=== PATIENT | male | born 1985 | race Caucasian/White ===

== ENCOUNTER 2016-07-29 17:26 | Inpatient (IN) | payer MEDICAID ==
[~2016-07-29] VITALS: Ht 175.3 cm; Wt 61.1 kg
[2016-07-29 17:59] LABS: BASOPHILS 0.8 % (0-2); EOSINOPHILS 5.3 % (0-7); HEMATOCRIT 35.3 % (42.0-54.0); HEMOGLOBIN 11.7 g/dL (13.5-17.5); IMMATURE GRANULOCYTES 0.2 % (0-5); LYMPHOCYTES 27.5 % (15-50); MCH 29.8 pg (26.0-34.0); MCHC 33.1 g/dL (31.0-37.0); MCV 90.1 fL (80.0-100.0); MEAN PLATELET VOLUME 9.8 fL (7.4-10.4); MONOCYTES 8.5 % (2-11); NEUTROPHILS 57.7 % (40-80); RBC 3.92 10x6/uL (4.20-6.10); RDW 13.1 % (11.5-14.5); WBC 8.8 10x3/uL (4.8-10.8)
[2016-07-29 18:21] LABS: PLATELET COUNT 306 10x3/uL (130-400)
[2016-07-29 18:23] LABS: ALBUMIN 2.3 g/dL (3.4-5.0); ANION GAP 10.4 mmol/L (8-16); BILIRUBIN - TOTAL 0.13 mg/dL (0.2-1.3); CARBON DIOXIDE 28.4 mmol/L (21.0-32.0); CREATININE - SERUM 2.6 mg/dL (0.6-1.3); POTASSIUM - SERUM 3.8 mmol/L (3.5-5.1); PROTEIN - SERUM 5.6 g/dL (6.4-8.2)
--- NOTE | 2016-07-29 21:19 | NUR ---
RECEIVED FROM ER, IV-R.FELA ROBBINS, HAS MAGDALENE, VITALS- BP-132/94, P-69, R-18, T-97.3, O2-98-RA, PT IS ALERT @ ORINTATED, DENIES ANY NEEDS, CALL LIGHT IN REACH, BED IS LOW, SRX2, WILL CONTINUE PLAN OF CARE
[2016-07-29] MEDS ORDERED: SEROQUEL XR400 M1 PO (21:27)
[2016-07-29] MEDS ORDERED: NORVASC10 MG PO (21:28)
[2016-07-29] MEDS ORDERED: PROTONIX40 MG PO (21:29)
[2016-07-29] MEDS ORDERED: CATAPRES0.2 MG PO (21:34)
[2016-07-29] MEDS ORDERED: HUMALOG 30100 UNITS/ SC ×2 (21:36→21:38)
[2016-07-29] MEDS ORDERED: TOPROL XL100 MG PO (23:06)
[2016-07-30 00:25] VITALS: BP 138/98
[2016-07-30 04:33] VITALS: BP 133/86
--- NOTE | 2016-07-30 04:33 | NUR ---
[id number]. HARDIN ORDER HUMALOG LOW SCALE, WILL GIVE 12 UNITS
--- NOTE | 2016-07-30 07:10 | NUR ---
RECEIVED REPORT. ASSUMED CARE OF PATIENT. ALERT/ORIENTED. LYING IN BED. CALL LIGHT WITHIN REACH. PATIENT STATES HE FEELS FINE OTHER THAN HAVING THE DEL CASTILLO CATHETER. PATIENT REQUESTING DEL CASTILLO CATHETER BE REMOVED NOW THAT HE IS ALERT. VEBALIZED HE UNDERSTOOD WHY THEY PUT IT IN LAST NIGHT. NO DISTRESS.
[2016-07-30 08:00] VITALS: BP 126/84
[2016-07-30 08:00] LABS: ANION GAP 12.8 mmol/L (8-16); CALCIUM 8.1 mg/dL (8.5-10.1); CARBON DIOXIDE 23.2 mmol/L (21.0-32.0); CREATININE - SERUM 2.6 mg/dL (0.6-1.3)
[2016-07-30 12:00] VITALS: BP 139/86
--- NOTE | 2016-07-30 12:01 | NUR ---
FOLEYCATH D/C'D AT THIS TIME. 1200 EMPTIED PRIOR TO REMOVAL. TOLERATED REMOVAL WELL. NO DISTRESS.
[2016-07-30 13:11] VITALS: Ht 175.3 cm; Wt 61.1 kg
[2016-07-30 16:00] VITALS: BP 118/50
--- NOTE | 2016-07-30 16:03 | HP ---
PATIENT: OLIVER JENNINGS MEDICAL RECORD: [id number] ACCOUNT: [id number] LOCATION:[address] : 84 ADMISSION DATE: 07/29/16 HISTORY AND PHYSICAL EXAMINATION HISTORY OF PRESENT ILLNESS: Mr. Jennings is a 31-year-old white male that presents to the Emergency Room unresponsive yesterday, brought in by family. He is a type 1 diabetic since the age of 7 with multiple medical problems including retinopathy, neuropathy, nephropathy. His primary care is ____. His air battle manager is Dr. Pizarro, sugar was low. He was resuscitated with fluids and in the ER and he is now hyperglycemic, found to have a lingular pneumonia. He has had a little bit of cough and chest discomfort. He is admitted at this time for treatment of his pneumonia and stabilization of his sugars. He states his last hemoglobin A1c was probably 11 or 12, but is not for certain. PAST MEDICAL HISTORY: Significant for type 1 diabetes since the age 7, complicated by retinopathy, neuropathy, nephropathy. He is followed by Dr. Pizarro, he has a history of hepatitis C that was treated by Dr. Ann Tena. He was hospitalized 2 weeks ago at ____, he was going there to see GI person, but he does know if he was hypoglycemic or hyperglycemic. He has a history of multiple admissions for DKA at other institution, states in 1 year he was admitted over 12 times with DKA. He has a history of IV drug use and has been clean for 2 years. He has a history of chronic kidney disease and was told his kidney function was 26%. He also has a type 1 bipolar disease and is followed at [facility]. PAST SURGICAL HISTORY: Significant for gallbladder, appendectomy, cataracts and multiple eye surgeries. ALLERGIES OR INTOLERANCES: None known. HOME MEDICATIONS: Include amlodipine 10 mg a day, metoprolol XL 100 mg a day, Seroquel XR 400 mg daily, clonazepam 0.52 b.i.d., Protonix 40 mg a day and his insulin. FAMILY HISTORY: Noncontributory. SOCIAL HISTORY: The patient smokes a pack per day. He smokes marijuana. He does not smoke tobacco. History of IV drug use. He is disabled. REVIEW OF SYSTEMS: Denies any fever, does complain of a little bit of cough and chest congestion, some abdominal pain. He is complaining right now of some pain from his Marsh catheter. PHYSICAL EXAMINATION: HEENT: Head is normocephalic, sclerae nonicteric. Oral cavity, he is edentulous. NECK: Soft and supple without rigidity. HEART: Regular without murmur. LUNGS: Clear. ABDOMEN: Soft. SKIN: Reveals multiple tattoos and findings compatible with prurigo nodularis. NEUROLOGIC: Without any gross focal deficits at this time. He is alert and oriented. HISTORY AND PHYSICAL [id number] OLIVER JENNINGS IMPRESSION: 1. Lingular pneumonia. 2. Hypoglycemia, now resolved with hyperglycemia. 3. Type 1 diabetes with multiple complications including nephropathy, retinopathy and neuropathy, history of hepatitis C, history of IV drug use, bipolar disorder, chronic renal disease. PLAN: Admit, IV antibiotics, pulmonary toilet, discontinue Marsh, monitor blood sugars, IV fluids, we will try to get an idea where his baseline renal function is. See orders for rest of plan. TRANSINT:[id number] Voice Confirmation ID: [id number] DOCUMENT ID: [id number] OLIVER RIGGINS DO at 1603 CC: [id number] DICTATION DATE: 07/30/16 1123 PLANNING RN: 07/30/16 1328 ADM IN [place] [id number] [place] [address]
--- NOTE | 2016-07-30 16:48 | NUR ---
FSBS 332. 8 UNITS HUMALOG ADMINISTERED PER SLIDING SCALE. NO DISTRESS. CONSUMING PM MEAL AT THIS TIME.
--- NOTE | 2016-07-30 19:00 | NUR ---
INITIAL ROUNDS MADE. PT SITTING UP IN BED WATCHING TV. NO NEEDS OR C/O VOICED AT THIS TIME. CALL LIGHT IN REACH. WILL CONT TO MONITOR.
[2016-07-30 20:00] VITALS: BP 133/89
[2016-07-31] VITALS (7 sets, daily range): BP systolic 123–161; BP diastolic 83–110
--- NOTE | 2016-07-31 05:55 | NUR ---
PHLEBO IN ROOM FOR AM LAB DRAW.
[2016-07-31 06:11] LABS: BASOPHILS 0.7 % (0-2); EOSINOPHILS 5.9 % (0-7); HEMATOCRIT 36.7 % (42.0-54.0); HEMOGLOBIN 12.1 g/dL (13.5-17.5); IMMATURE GRANULOCYTES 0.4 % (0-5); MCH 29.5 pg (26.0-34.0); MCV 89.5 fL (80.0-100.0); MEAN PLATELET VOLUME 10.1 fL (7.4-10.4); MONOCYTES 8.1 % (2-11); NEUTROPHILS 51.9 % (40-80); PLATELET COUNT 295 10x3/uL (130-400); RDW 13.1 % (11.5-14.5); WBC 8.3 10x3/uL (4.8-10.8)
[2016-07-31 06:38] LABS: ALBUMIN 2.3 g/dL (3.4-5.0); ANION GAP 14.1 mmol/L (8-16); BILIRUBIN - TOTAL 0.3 mg/dL (0.2-1.3); CARBON DIOXIDE 23.2 mmol/L (21.0-32.0); CREATININE - SERUM 2.4 mg/dL (0.6-1.3); POTASSIUM - SERUM 4.3 mmol/L (3.5-5.1); PROTEIN - SERUM 5.7 g/dL (6.4-8.2)
--- NOTE | 2016-07-31 07:00 | NUR ---
RECEIVED REPORT. ASSUMED CARE OF PATIENT. CALL LIGHT WITHIN REACH. RESTING WITH EYES CLOSED. EASILY AROUSED. RESP EVEN AND UNLABORED. DENIES NEEDS AT THIS TIME. NO DISTRESS. IV FLUIDS INFUSING ORDERED.
--- NOTE | 2016-07-31 12:08 | NUR ---
FSBS 375. 10 UNITS HUMALOG ADMINISTERED AT THIS TIME. NO DISTRESS. CONSUMED 100% OF NOON MEAL.
--- NOTE | 2016-07-31 14:57 | NUR ---
MEDICATED FOR PAIN AT THIS TIME. NO DISTRESS. TOLERATES PO MEDS WELL.
--- NOTE | 2016-07-31 16:42 | NUR ---
FSBS 295. 6 UNITS HUMALOG ADMINISTERED PER SLIDING SCALE. MEDICATED FOR PAIN AT THIS TIME. NO DISTRESS.
--- NOTE | 2016-07-31 17:30 | NUR ---
RESTING IN BED WITH ATTENTION TOWARD TELEVISION. PATIENT CONSUMED 100% OF PM MEAL. CALL LIGHT WITHIN REACH. NO DISTRESS. DENIES NEEDS AT THIS TIME.
--- NOTE | 2016-07-31 19:00 | NUR ---
INITIAL ROUNDS MADE. PT SITTING UP ON SIDE OF BED WATCHING TV. DENIES NEEDS OR C/O AT THIS TIME. CALL LIGHT IN REACH. WILL CONT TO MONITOR.
--- NOTE | 2016-08-01 00:27 | NUR ---
HEAVY EQUIPMENT SERVICE MANAGER AT BEDSIDE FOR VS. NEEDS ADDRESSED AT THIS TIME. CALL LIGHT IN REACH. WILL CONT TO MONITOR.
[2016-08-01 03:44] VITALS: BP 141/95
[2016-08-01 05:41] LABS: BASOPHILS 0.9 % (0-2); EOSINOPHILS 6.5 % (0-7); HEMATOCRIT 37.4 % (42.0-54.0); HEMOGLOBIN 12.3 g/dL (13.5-17.5); IMMATURE GRANULOCYTES 0.4 % (0-5); MCH 29.2 pg (26.0-34.0); MCHC 32.9 g/dL (31.0-37.0); MCV 88.8 fL (80.0-100.0); MEAN PLATELET VOLUME 9.8 fL (7.4-10.4); MONOCYTES 7.7 % (2-11); NEUTROPHILS 50.5 % (40-80); PLATELET COUNT 306 10x3/uL (130-400); RBC 4.21 10x6/uL (4.20-6.10); RDW 12.9 % (11.5-14.5); WBC 7.4 10x3/uL (4.8-10.8)
[2016-08-01 05:58] LABS: ALBUMIN 2.3 g/dL (3.4-5.0); ANION GAP 13.3 mmol/L (8-16); BILIRUBIN - TOTAL 0.19 mg/dL (0.2-1.3); CALCIUM 8.4 mg/dL (8.5-10.1); POTASSIUM - SERUM 4.3 mmol/L (3.5-5.1); PROTEIN - SERUM 5.8 g/dL (6.4-8.2)
[2016-08-01 08:01] VITALS: BP 182/111
[2016-08-01 12:09] VITALS: BP 150/99
[2016-08-01] MEDS ORDERED: LEVAQUIN500 MG PO (12:26)
--- NOTE | 2016-08-01 14:19 | NUR ---
Patient Name: OLIVER JENNINGS Admission Status: ER Accout number: [id number] Admission Date: 07-29-2016 : 1985 Admission Diagnosis: Attending: JUSTIN Current LOS: 3 Anticipated DC Date: 08-01-2016 Planned Disposition: Home Primary Insurance: MEDICAID [place] Discharge Planning Comments: CM met with patient to assess discharge planning/needs. Patient states that his plan is to be discharged home where he lives with his dad( Octavio Jennings) [phone] and his stepmother (Heidi) who will drive him home. Pt states that he has x 4 stairs with a rail. Pt also states that his home is a safe environment to return home to. He has an insulin pump where Dr Olson manages it. Pt did say that he was admitted to [facility] in [place] 2 weeks ago. Pt denies any CM needs at this time. offered and pt does not feel like he needs it at this time. PCP: Dr Bolaños (DIRECTOR COMPENSATION) Christy Morales @ [facility]: Budget Motor Driver: Traci White * Is the patient Alert and Oriented? Yes 0 * How many steps to enter\exit or inside your home? 4 0 * PCP ANP: Andrew Bolaños 0 * Pharmacy [facility] 0 * Preadmission Environment Home with Family 0 * ADLs Independent 0 * Equipment Other 0 * Other Equipment Insulin Pump 0 * List name and contact numbers for known caregivers / representatives who currently or will assist patient after discharge: Octavio Jennings (father) [phone] 0 * Community resources currently utilized None 0 * Additional services required to return to the preadmission environment? No 0 * Can the patient safely return to the preadmission environment? Yes 0 * Has this patient been hospitalized within the prior 30 days at any hospital? Yes 0 Grand Total: 0
--- NOTE | 2016-08-01 14:56 | NUR ---
D/C PTS R.WRIST PIV WITH CATHETER TIP FULLY INTACT, ALONG WITH L.FA PIV CATHETER TIP FULLY INTACT WELL FOR PT BEING DISCHARGED. PT IS WANTING TO TAKE A SHOWER FIRST THEN HE WILL BE BEING DISCHARGED AND SIGN HIS PAPERS.
--- NOTE | 2016-08-01 15:35 | NUR ---
DISCHARGE TEACHING PROVIDED AND PAPERS SIGNED. PT VERBALIZED UNDERSTANDING AND CALLED FOR HIS RIDE. DENIES ANY FURTHER QUESTIONS OR NEEDS. WILL CTM.
== END 2016-08-01 17:10 | disposition home or self-care (01) | DRG 195 ==
LOC: D.ER 17:26 → D.M2 19:42
PROVIDERS: Emergency Medicine; ADMIT Family Medicine
DX: J18.9 Pneumonia, unspecified organism (principal); B18.2 Chronic viral hepatitis C; E10.22 Type 1 diabetes mellitus with diabetic chronic kidney disease; N18.9 Chronic kidney disease, unspecified; Z79.4 Long term (current) use of insulin; E10.40 Type 1 diabetes mellitus with diabetic neuropathy, unspecified; E10.319 Type 1 diabetes mellitus with unspecified diabetic retinopathy without macular edema; E10.65 Type 1 diabetes mellitus with hyperglycemia; E10.21 Type 1 diabetes mellitus with diabetic nephropathy

== ENCOUNTER 2016-08-15 02:27 | Inpatient (IN) | payer MEDICAID ==
[~2016-08-15] VITALS: Ht 175.3 cm; Wt 61.6 kg
[2016-08-15] VITALS (18 sets, daily range): BP systolic 103–161; BP diastolic 68–91; Ht 175.3 cm; Wt 61.6 kg
[~2016-08-15 02:27] MED LIST: CATAPRES0.2 MG PO; HUMALOG 30100 UNITS/ SC; LEVAQUIN500 MG PO; NORVASC10 MG PO; PROTONIX40 MG PO; SEROQUEL XR400 M1 PO; TOPROL XL100 MG PO
[2016-08-15 03:04] LABS: HEMATOCRIT 45.6 % (42.0-54.0); HEMOGLOBIN 11.9 g/dL (13.5-17.5); MCH 29.8 pg (26.0-34.0); MCHC 26.1 g/dL (31.0-37.0); MEAN PLATELET VOLUME 11.5 fL (7.4-10.4); PLATELET COUNT 311 10x3/uL (130-400); RDW 13.1 % (11.5-14.5); WBC 27.4 10x3/uL (4.8-10.8)
[2016-08-15 03:09] LABS: KETONE - SERUM LARGE mg/dL (NEGATIVE)
[2016-08-15 03:17] LABS: ALBUMIN 3.2 g/dL (3.4-5.0); ALKALINE PHOSPHATASE 158 U/L (46-116); ALT (SGPT) 86 U/L (10-68); BILIRUBIN - TOTAL 0.44 mg/dL (0.2-1.3); CALCIUM 8.1 mg/dL (8.5-10.1); CREATININE - SERUM 5.8 mg/dL (0.6-1.3); PROTEIN - SERUM 6.9 g/dL (6.4-8.2); SODIUM 122 mmol/L (136-145); UREA NITROGEN 83 mg/dL (7-18); eGFR NON AFRICAN AMERICAN 12 mL/min (90-120)
[2016-08-15 03:31] LABS: UDS - AMPHET NEGATIVE QUAL (NEGATIVE); UDS - BARB NEGATIVE QUAL (NEGATIVE); UDS - BENZO NEGATIVE QUAL (NEGATIVE); UDS - COCAINE NEGATIVE QUAL (NEGATIVE); UDS - METH NEGATIVE QUAL (NEGATIVE); UDS - OPIATE POSITIVE QUAL (NEGATIVE); UDS - PCP NEGATIVE QUAL (NEGATIVE); UDS - THC POSITIVE QUAL (NEGATIVE)
[2016-08-15 03:34] LABS: LYMPHOCYTES 9 % (15-50); MONOCYTES 4 % (2-11); NEUTROPHILS 83 % (40-80); PLATELET ESTIMATE NORMAL; PLATELET MORPHOLOGY PLT CLUMPS PRESENT
[2016-08-15 03:36] LABS: CALC OSMOLALITY 372 mosm/kg (275-300)
[2016-08-15 03:37] LABS: CARBON DIOXIDE 4.3 mmol/L (21.0-32.0); CHLORIDE - SERUM 82 mmol/L (98-107)
[2016-08-15 03:38] LABS: GLUCOSE 1939 mg/dL (74-106)
[2016-08-15 03:49] LABS: APPEARANCE HAZY (CLEAR); BILIRUBIN NEGATIVE (NEGATIVE); COLOR YELLOW (YELLOW); GLUCOSE 1000 mg/dL (NEGATIVE); KETONE SMALL mg/dL (NEGATIVE); LEUKOCYTE ESTERASE NEGATIVE (NEGATIVE); NITRITE NEGATIVE (NEGATIVE); PROTEIN 2+ mg/dL (NEGATIVE); UROBILINOGEN NORMAL (NORMAL)
[2016-08-15 04:03] LABS: AMORPHOUS SEDIMENT >1+ /lpf (NONE SEEN); BACTERIA FEW /hpf (NONE SEEN); EPITHELIAL CELLS 0-5 /hpf (0-5); GRANULAR CAST RARE /lpf (NONE SEEN); RED CELLS - URINE OCC /hpf (0-5); WHITE CELLS - URINE OCC /hpf (0-5)
--- NOTE | 2016-08-15 07:15 | NUR ---
RECIEVED PT VIA STRETCHER FROM ER. CONFUSED UNLABLE TO FORM PROPER SENTENCES. ABLE TO VERIFY NAME, BUT NOT . PLACED ON BAIRHUGGER. CRITOCORE COLLECTION CANNISTER PALCED ON CRITICORE CONTAINER. VSS AT THIS TIME. TEMP UP TO 97.6 ORALLY. ADMISSION COMPLETE PER FLOWSHEET. NS AND INSULING GTT INFUSING TO LEFT AC.
[2016-08-15 08:02] LABS: CREATININE - SERUM 5.8 mg/dL (0.6-1.3); MAGNESIUM - SERUM 2.6 mg/dL (1.8-2.4)
[2016-08-15 08:06] LABS: ANION GAP 40.6 mmol/L (8-16)
[2016-08-15 08:08] LABS: CALCIUM 6.6 mg/dL (8.5-10.1); CARBON DIOXIDE 5.5 mmol/L (21.0-32.0); POTASSIUM - SERUM 7.1 mmol/L (3.5-5.1)
--- NOTE | 2016-08-15 09:00 | NUR ---
DR. PARKINSON AT BEDSIDE. ORDERS RECIEVED.
--- NOTE | 2016-08-15 09:42 | NUR ---
ORDER PLACED FOR LAB TO COME DRAW GLUCOSE EVERY HOUR UNTIL UNDER 400.
--- NOTE | 2016-08-15 10:00 | NUR ---
FATHER AT BEDSIDE. UPDATE PROVIDED. SECURITY CODE SET UP.
--- NOTE | 2016-08-15 12:17 | NUR ---
SPOKE WITH [facility] TO VERIFY FORMULA USED TO CALCULATE INSULIN GTT RATE. LAST FSBS 1125 DOSE CALCULATED AND VERIFIED WITH HIM 42.6. WITH MULTIPLIER INCREASED BY 0.01 TO EQUAL 0.04 IN FORMULA.
[2016-08-15 12:47] LABS: CREATININE - SERUM 5.7 mg/dL (0.6-1.3); MAGNESIUM - SERUM 2.4 mg/dL (1.8-2.4)
[2016-08-15 12:51] LABS: ANION GAP 31.9 mmol/L (8-16); POTASSIUM - SERUM 5.3 mmol/L (3.5-5.1)
[2016-08-15 12:53] LABS: CALCIUM 6.6 mg/dL (8.5-10.1); CARBON DIOXIDE 8.4 mmol/L (21.0-32.0)
[2016-08-15 13:40] LABS: CREATINE KINASE 497 UL (21-232)
[2016-08-15 13:41] LABS: CKMB 15.3 U/L (0.0-3.6)
--- NOTE | 2016-08-15 14:30 | NUR ---
DR. HAMMER AT BEDSIDE. UPDATE PROVIDED. ORDERS RECIEVED.
--- NOTE | 2016-08-15 14:44 | HP ---
PATIENT: OLIVER TALAVERA MEDICAL RECORD: [id number] ACCOUNT: [id number] LOCATION:[facility] D2310 : 84 ADMISSION DATE: 08/15/16 HISTORY AND PHYSICAL EXAMINATION DATE OF ADMISSION: 08/15/2016 CHIEF COMPLAINT: Weakness, DKA. HISTORY OF PRESENT ILLNESS: This is a 31-year-old white male with diabetes since age 7, on insulin pump. He is not able to give any kind of history. The story from the ER is that he is a brittle diabetic. His father got home from work on 08/14/2016 and saw the insulin pump was "not in place." In the ER, he was minimally conscious and he was unable to give any history. In the ER, his sodium was 122 and his glucose was 1939. His potassium was 8.0, lactic acid 3.9, BUN and creatinine were 83 and 5.8 respectively. Serum ketones were large. Urine drug screen positive for opiates and for THC. He is admitted to the ICU for further treatment. PAST MEDICAL AND SURGICAL HISTORY: Basically gained from previous hospitalizations and review of those records, he has diabetes since age 7, currently followed by Dr. Pizarro. When I asked who his primary care doctor is, he says ____. Patient has retinopathy, neuropathy, nephropathy. I am not sure what his baseline creatinine level is. He reportedly has a history of hepatitis C, treated by Ann Tena, history of IV drug use and reportedly clean for a couple of years. He has a history of bipolar illness, follows in [facility]. PAST SURGICAL HISTORY: Cholecystectomy, appendectomy, cataract repair, multiple eye surgeries. ALLERGIES: None known. HOME MEDICATIONS: Amlodipine 10 mg once a day, metoprolol XL 100 twice a day, clonidine 0.2 mg twice a day, Seroquel 400 mg twice a day, Protonix 40 mg once a day and insulin pump per Dr. Pizarro. HABITS: Reportedly, he does smoke cigarettes and smokes marijuana, again no IV drug use for a couple of years. SOCIAL HISTORY: He lives with his father. FAMILY HISTORY: Really unobtainable. PHYSICAL EXAMINATION: VITAL SIGNS: Temperature 96.7, pulse 77, respirations 20, blood pressure in the ER 92/44. GENERAL: He is awake. He will answer questions, but not appropriately. He is complaining of pain in his private parts, he has a Marsh catheter in. He is confused. SKIN: He has multiple tattoos. HEENT: Grossly within normal limits. NECK: No JVD or bruit. HEART: Regular rate and rhythm. LUNGS: Fairly clear. HISTORY AND PHYSICAL [id number] OLIVER TALAVERA ABDOMEN: Mild diffuse tenderness. No guarding, no rebound, no mass. EXTREMITIES: No edema. NEUROLOGIC: He is confused. LABORATORY WORK: Serum ketones positive. CBC with a white count of 27,400, hemoglobin 11.9, hematocrit 45.6, MCV is 114. First basic metabolic panel: Sodium 122, potassium 8.0, chloride 82, CO2 of 4.3, BUN 83, creatinine 5.8, glucose was 1939, calcium 8.1. Second basic metabolic panel: Sodium 129, potassium 7.1, chloride 90, CO2 is 5.5, BUN and creatinine 79 at 5.8, glucose is down to 1335. Lactic acid elevated at 3.9. Liver enzymes are okay except ALT 86. Urine drug screen positive for opiates, positive for marijuana, for THC. Urinalysis, yellow, hazy, 2+ protein, few bacteria. ABG: pH 6.9, pCO2 of 14, pO2 of 136. Chest x-ray is not done. ASSESSMENT: 1. Diabetic ketoacidosis. 2. Uncontrolled diabetes. 3. Acute kidney injury on chronic kidney disease. 4. Hyperkalemia. PLAN: Kayexalate. We will start insulin drip. We will consult nephrology for his renal function. Get chest x-ray, urine culture and blood culture. Other tests or procedures as warranted. TRANSINT:[id number] Voice Confirmation ID: [id number] DOCUMENT ID: [id number] GURMEET PARKINSON MD at 1444 CC: [id number] DICTATION DATE: 08/15/16849 ELECTRIC GAS APPLIANCES DEMONSTRATOR: 08/15/16 1010 ADM IN [id number] [place] [address]
[2016-08-15 17:00] LABS: CREATININE - SERUM 5.5 mg/dL (0.6-1.3); MAGNESIUM - SERUM 2.2 mg/dL (1.8-2.4)
--- NOTE | 2016-08-15 17:00 | NUR ---
SPOKE WITH DR. HAMMER IN RESULTS TO CRITICAL K+. ORDERS RECIEVED.
[2016-08-15 17:03] LABS: ANION GAP 19.8 mmol/L (8-16); CARBON DIOXIDE 21.9 mmol/L (21.0-32.0)
[2016-08-15 17:05] LABS: CALCIUM 6.7 mg/dL (8.5-10.1); POTASSIUM - SERUM 2.7 mmol/L (3.5-5.1)
--- NOTE | 2016-08-15 17:15 | NUR ---
patient with recent discharge 08/01/16. Reportedly had an admission to [facility] in [place] 2 wks prior to the [facility] 07/29 admit 08/01 discharge.Pt is somewhat confused today. Admitted this early AM to ICU. He reportedly lives w/ mhis father and stepmother. He has an insulin pump per his notes and sees DR Aguilar for management. Per previous assessment is followed by [facility] DR Bolaños and FLOW MACHINE OPERATOR Christy Morales. CM will need to verify above with the patient when he is more oriented. BG 828 at 1520.
--- NOTE | 2016-08-15 19:30 | NUR ---
REPORT REC'D AND CARE ASSUMED, REC'D PT RESTING IN BED EYES CLOSED, AWAKENS TO VERBAL STIMULI, ORIENTED TO PERSON AND PLACE ONLY, IMMEDIATELY FALLS BACK TO SLEEP WITHOUT CONTINUOUS STIMULI, SERUM GLUCOSE 432, LEFT A/C PIV WITH NS @ 50CC/HR AND INSULIN @ 41.5CC/HR, LEFT WRIST PIV WITH 1/2NS WITH 3AMPS SOD BICARB @ 150CC/HR, KCL RIDER INFUSING SLOWLY @ 60CC/HR, CRITICORE DEL CASTILLO PATENT DRAINING CLEAR YELLOW URINE, BILAT LOWER EXT'S WITH SCARS AND SCABS/SORES, PPP, SR UP X 2, VISIBLE TO NURSES STATION.
--- NOTE | 2016-08-15 20:20 | NUR ---
SERUM GLUCOSE 356, NO CHANGE IN INSULIN GTT AT THIS TIME.
--- NOTE | 2016-08-15 21:15 | NUR ---
EVENING MEDS GIVEN, PT AROUSABLE, BS TRENDING DOWN, BP STABLE, WILL CONT TO MONITOR FOR CHANGES.
--- NOTE | 2016-08-15 23:00 | NUR ---
PT INCONTINENT OF LOOSE BROWN STOOL, PARTIAL BATH AND LINEN CHANGE GIVEN, REPOSITIONED UP IN BED FOR COMFORT, TOLERATED WELL.
--- NOTE | 2016-08-15 23:30 | NUR ---
REASSESSMENT COMPLETED, FSBS 119, INSULIN GTT REDUCED, PT DENIES NEEDS, WILL CONT TO MONITOR FOR CHANGES.
[2016-08-16] VITALS (24 sets, daily range): BP systolic 105–191; BP diastolic 67–119
--- NOTE | 2016-08-16 00:05 | NUR ---
FSBS 89, INSULIN GTT PLACED ON HOLD, WILL MONITOR.
--- NOTE | 2016-08-16 01:05 | NUR ---
FSBS 43, 1 AMP D50 GIVEN AT THIS TIME, PT DIFFICULT TO AROUSE
--- NOTE | 2016-08-16 01:40 | NUR ---
FSBS 79, PT INCONTINENT OF SM LOOSE BROWN STOOL, PARTIAL BATH AND LINEN CHANGE GIVEN, PT REPOSITIONED UP IN BED FOR COMFORT.
--- NOTE | 2016-08-16 02:29 | NUR ---
FSBS 68 AT THIS TIME, BP ELEVATED, PT CONVERSANT, REPORTS TAKING BP MEDS AT HOME, WILL CONT TO MONITOR CLOSELY FOR CHANGES.
--- NOTE | 2016-08-16 03:05 | NUR ---
FSBS 58, PT COHERENT, REQUESTING ORANGE JUICE PROVIDED AT THIS TIME, WILL RECHECK GLUCOSE IN 30-45 MINUTES, BP REMAINS ELEVATED
--- NOTE | 2016-08-16 03:15 | NUR ---
DR. ENNIS PAGED REGARDING ELEVATED BP
--- NOTE | 2016-08-16 03:35 | NUR ---
DR. ENNIS REPAGED
--- NOTE | 2016-08-16 03:40 | NUR ---
NOTIFIED DR. ENNIS OF ELEVATED BP AND HOME MEDS BEING HELD FOR NPO STATUS, NEW ORDERS REC'D, EMERGENCY PREPAREDNESS COORDINATOR NOTIFIED OF NEED FOR OVERRIDE
[2016-08-16 03:48] LABS: BASOPHILS 0.1 % (0-2); EOSINOPHILS 0.1 % (0-7); HEMATOCRIT 36.7 % (42.0-54.0); IMMATURE GRANULOCYTES 0.6 % (0-5); LYMPHOCYTES 5.8 % (15-50); MCH 29.8 pg (26.0-34.0); MCHC 35.4 g/dL (31.0-37.0); MCV 84.2 fL (80.0-100.0); MEAN PLATELET VOLUME 10.1 fL (7.4-10.4); MONOCYTES 12.2 % (2-11); NEUTROPHILS 81.2 % (40-80); PLATELET COUNT 291 10x3/uL (130-400); RBC 4.36 10x6/uL (4.20-6.10); WBC 27.6 10x3/uL (4.8-10.8)
[2016-08-16 03:53] LABS: ALBUMIN 2.5 g/dL (3.4-5.0); BILIRUBIN - TOTAL 0.4 mg/dL (0.2-1.3); CREATININE - SERUM 4.5 mg/dL (0.6-1.3)
[2016-08-16 03:55] LABS: ANION GAP 11.9 mmol/L (8-16); CARBON DIOXIDE 31.1 mmol/L (21.0-32.0)
[2016-08-16 03:56] LABS: CALCIUM 6.8 mg/dL (8.5-10.1)
--- NOTE | 2016-08-16 04:15 | NUR ---
CLONIDINE 0.2MG PO GIVEN FOR ELEVATED BP, PT ATTEMPTED TO GET OOB, MOANING STATES " I NEED TO POOP", PT PLACED ON BED GUIDO AT THIS TIME, CALL LIGHT IN REACH.
--- NOTE | 2016-08-16 04:35 | NUR ---
PT REMOVED FROM BEDPAN, LARGE LOOSE BROWN STOOL NOTED, BATH AND LINEN CHANGE PROVIDED, PT REPOSITIONED UP IN BED FOR COMFORT, SR UP X 2, BED IN LOW POSITION, CALL LIGHT IN REACH.
--- NOTE | 2016-08-16 05:15 | NUR ---
PT MOANING AND ROLLING AROUND IN BED WHEN ASKED WHERE HE HURT STATES " I HAVE TO POOP AGAIN", BEDPAN PLACED UNDER PT.
--- NOTE | 2016-08-16 05:30 | NUR ---
PT HAD SM LIQUID BROWN STOOL, PARTIAL BATH AND LINEN CHANGE PROVIDED, FSBS 160 WILL MONITOR FOR CHANGES.
--- NOTE | 2016-08-16 06:00 | NUR ---
NO VISITORS IN AT THIS TIME.
--- NOTE | 2016-08-16 06:36 | NUR ---
DR. ENNIS PAGED REGARDING GLUCOSE 181
--- NOTE | 2016-08-16 06:40 | NUR ---
DR. ENNIS INFORMED OF GLUCOSE, NEW ORDERS REC'D FOR INTERMEDIATE HUMALOG S/S AND Q2 HOUR FSBS.
--- NOTE | 2016-08-16 07:15 | NUR ---
REPORT RECIVED FROM DEVELOPER PROGRAMMER NURSE. PT RESTING IN BED QUIETLY. AWAKEN TO VERBAL STIMULI. AAO TO PERSON, PLACE, AND SITUATION. REORIENTED TO TIME. VSS TO CM. TEMP 37.6 DEGREE'S CELCIUS PER CRITICORE F/C. PATENT WITH CLEAR, YELLOW URINE. SCABS AND SORES NOTED TO UPPER AND LOWER EXT'S. MORE SIGNIFICANT TO LOWER EXT'S. EDEMA +2 TO LE'S. PRODUCTIVE COUGH NOTED. SPUTUM NOTED TO BE YELLOW IN COLOR AND THICK. BED ALARM ON AND BED IN LOW POSITION. WILL CONT TO ASSESS FSBS Q2H.
--- NOTE | 2016-08-16 10:00 | NUR ---
FATHER AT BEDSIDE. UPDATE PROVIDED.
--- NOTE | 2016-08-16 12:00 | NUR ---
NO ACUTE CHANGE NOTED AT THIS TIME. PARTIAL LINEN CHANGE PROVIDED. CALL LIGHT IN REACH.
--- NOTE | 2016-08-16 14:03 | NUR ---
FSBS 146. WILL HOLD PER S/S.
[2016-08-16 15:50] LABS: CARBON DIOXIDE 33.9 mmol/L (21.0-32.0); CREATININE - SERUM 3.8 mg/dL (0.6-1.3); MAGNESIUM - SERUM 1.8 mg/dL (1.8-2.4); PHOSPHOROUS 3.3 mg/dL (2.5-4.9)
[2016-08-16 15:51] LABS: ANION GAP 7.9 mmol/L (8-16)
[2016-08-16 15:53] LABS: CALCIUM 6.6 mg/dL (8.5-10.1); POTASSIUM - SERUM 2.8 mmol/L (3.5-5.1)
--- NOTE | 2016-08-16 16:00 | NUR ---
OFFERED TO HELP PT BATHE HIMSELF AND CHANGE LINENS PT REFUSED STATED HE DIDN'T WANT TO AT THIS TIME. WILL ASK AGAIN LATER.
--- NOTE | 2016-08-16 18:00 | NUR ---
FATHER AT BEDSIDE. UPDATE PROVIDED.
--- NOTE | 2016-08-16 19:06 | NUR ---
PHYSICIAN O/C PAGED REGARDING INCREASE IN SBP OVER LAST HOUR. AWAITING CALL BACK.
--- NOTE | 2016-08-16 19:45 | NUR ---
ASSESSMENT COMPLETE. S1S2. NSR SHOWING ON MONITOR. RR EQUAL AND UNLABORED. AWAKE AND ALERT. GENERALIZED SCABS/SORES; B/L LOWER EXTREMITIES SCABS/SORES. PT INCONTINENT OF STOOL. CRITICORE DEL CASTILLO IN PLACE. PIV TO LEFT WRIST AND LEFT AC; BOTH PATENT.
--- NOTE | 2016-08-16 20:45 | NUR ---
EMPTIED CRITICORE MAGDALENE; POLYURIA. 2300 EMPTIED OUT
--- NOTE | 2016-08-16 21:30 | NUR ---
NO FAMILY DURING VISITATION.
--- NOTE | 2016-08-16 23:15 | NUR ---
REASSESSMENT COMPLETE. NO CHANGES FROM PREVIOUS ASSESSMENT. VSS. NO DISTRESS NOTED. PT SPITTING TOWARDS PEOPLES DIRECTION.
[2016-08-17] VITALS (12 sets, daily range): BP systolic 116–187; BP diastolic 74–110
--- NOTE | 2016-08-17 00:10 | NUR ---
BS 71. ORANGE JUICE GIVEN. WILL RECHECK.
--- NOTE | 2016-08-17 03:15 | NUR ---
REASSESSMENT COMPLETE. NO CHANGES FROM PREVIOUS ASSESSMENT. VSS. WILL CONTINUE TO MONITOR.
[2016-08-17 03:41] LABS: BASOPHILS 0.1 % (0-2); EOSINOPHILS 0.2 % (0-7); HEMATOCRIT 32.7 % (42.0-54.0); HEMOGLOBIN 11.1 g/dL (13.5-17.5); IMMATURE GRANULOCYTES 0.3 % (0-5); LYMPHOCYTES 12.4 % (15-50); MCH 29.2 pg (26.0-34.0); MCHC 33.9 g/dL (31.0-37.0); MCV 86.1 fL (80.0-100.0); MEAN PLATELET VOLUME 10.2 fL (7.4-10.4); MONOCYTES 7.4 % (2-11); NEUTROPHILS 79.6 % (40-80); RDW 13.5 % (11.5-14.5)
[2016-08-17 03:42] LABS: PLATELET COUNT 183 10x3/uL (130-400)
[2016-08-17 03:59] LABS: ALBUMIN 2.2 g/dL (3.4-5.0); ANION GAP 11.1 mmol/L (8-16); BILIRUBIN - TOTAL 0.41 mg/dL (0.2-1.3); CREATININE - SERUM 3.2 mg/dL (0.6-1.3); MAGNESIUM - SERUM 1.6 mg/dL (1.8-2.4); POTASSIUM - SERUM 3.1 mmol/L (3.5-5.1); PROTEIN - SERUM 5.5 g/dL (6.4-8.2)
[2016-08-17 04:06] LABS: CALCIUM 6.7 mg/dL (8.5-10.1)
--- NOTE | 2016-08-17 05:30 | NUR ---
PT PULLING ON DEL CASTILLO CATH. PT C/O PAIN AT DEL CASTILLO SITE. EXPLAINED THAT PULLING CAUSES PAIN AND PT SHOULD LEAVE IT ALONE. PT WAS PLAYING WITH PENIS MULTIPLE TIMES THROUGHOUT THE NIGHT.
--- NOTE | 2016-08-17 07:30 | NUR ---
REPORT RECD PT CARE ASSUMED. PT RESTING IN BED WITH EYES OPEN AT THIS TIME. S1S2 NOTED, SR PER CM. PT ON RA, LUNG SOUNDS DIMINISHED IN BASES. PT IS ALERT AND ORIENTED X 4. VSS. SEE SHIFT ASSESSMENT FOR FURTHER DETAIL. WILL MONITOR.
--- NOTE | 2016-08-17 09:31 | NUR ---
PT CONSUMES PART OF BREAKFAST, TOLERATES MED PASS WELL. BS STABLE AT THIS TIME. PT RESTING IN BED. VSS.
--- NOTE | 2016-08-17 10:11 | NUR ---
REPORT GIVEN TO SAMIRA DAI. PT STABLE FOR TRANSPORT.
--- NOTE | 2016-08-17 10:47 | NUR ---
RECEIVED PATIENT TO ROOM 2236 VIA BED FROM THE ICU. PATIENT IS AWAKE, ALERT, AND ORIENTED X4. NO COMPLAINTS OF PAIN AT PRESENT TIME. ORIENTED PATIENT TO HIS ROOM AND HIS CALL LIGHT. 1000 ML OF CLEAR YELLOW URINE EMPTIED FROM PATIENT'S DEL CASTILLO CATHETER. PATIENT DENIES ANY NEEDS AT PRESENT TIME. CALL LIGHT IN PATIENT'S REACH. WILL MONITOR PATIENT.
--- NOTE | 2016-08-17 11:46 | NUR ---
PATIENT RESTING IN THE BED. FSBS IS 200. 4 UNITS OF SLIDING SCALE INSULIN GIVEN TO PATIENT IN HIS RIGHT ARM. PATIENT TOLERATED WELL. PATIENT DENIES NEEDS AT PRESENT TIME. CALL LIGHT IN PATIENT'S REACH. WILL MONITOR.
--- NOTE | 2016-08-17 14:24 | NUR ---
IV RESITED TO L UPPER ARM. X2 ATTEMPTS. 20GUAGE IV CATHETER USED. IV TO L WRIST DC'D WITH CATHETER INTACT. DEL CASTILLO CATHETER DC'D BY MALAIKA HOGAN. BED LOW, CALL LIGHT IN REACH, DENIES NEEDS. CPOC.
--- NOTE | 2016-08-17 16:37 | NUR ---
PATIENT RESTING IN THE BED. FSBS IS 88. NO SLIDING SCALE INSULIN REQUIRED AT THIS TIME. PATIENT DENIES ANY NEEDS. CALL LIGHT IN PATIENT'S REACH. WILL MONITOR PATIENT.
--- NOTE | 2016-08-17 19:35 | NUR ---
RECIEVED SHIFT REPORT. PT IS LYING IN BED. ALERT AND ORIENTED AND ABLE TO VERBALIZE NEEDS. IV IS PATENT AND FLUIDS ARE RUNNING PER ORDER. PT IS AMBULATORY BUT WAS INSTRUCTED TO CALL FOR ANY ASSISTANCE NEEDED. PT DENIES ANY PAIN AT THIS TIME. NO NEEDS ARE VERBALIZED AT THIS TIME. WILL CONTINUE TO MONITOR. SIDE RAILS ARE UP X 2. BED IS IN LOWEST POSITION. CALL LIGHT IS WITHIN REACH.
--- NOTE | 2016-08-17 21:39 | NUR ---
SHIFT ASSESSMENT COMPLETED. NIGHT MEDS GIVEN WITH NO PROBLEMS. NO NEEDS ARE VOICED. WILL MONITOR. SIDE RAILS X 2. BED LOW. CALL LIGHT IN REACH.
[2016-08-18] VITALS: BP 154/87
[2016-08-18 04:00] VITALS: BP 188/104
[2016-08-18 05:36] LABS: BASOPHILS 0.1 % (0-2); EOSINOPHILS 0.8 % (0-7); HEMOGLOBIN 12.9 g/dL (13.5-17.5); IMMATURE GRANULOCYTES 0.3 % (0-5); LYMPHOCYTES 16.8 % (15-50); MCH 28.9 pg (26.0-34.0); MCHC 33.1 g/dL (31.0-37.0); MCV 87.4 fL (80.0-100.0); MEAN PLATELET VOLUME 10.3 fL (7.4-10.4); MONOCYTES 8.7 % (2-11); NEUTROPHILS 73.3 % (40-80); PLATELET COUNT 202 10x3/uL (130-400); RBC 4.46 10x6/uL (4.20-6.10); RDW 13.1 % (11.5-14.5); WBC 11.4 10x3/uL (4.8-10.8)
[2016-08-18 06:06] LABS: ALBUMIN 2.5 g/dL (3.4-5.0); BILIRUBIN - TOTAL 0.45 mg/dL (0.2-1.3); CARBON DIOXIDE 29.1 mmol/L (21.0-32.0); CREATININE - SERUM 2.5 mg/dL (0.6-1.3); PROTEIN - SERUM 6.3 g/dL (6.4-8.2)
[2016-08-18 06:35] LABS: ANION GAP 13.4 mmol/L (8-16); POTASSIUM - SERUM 2.5 mmol/L (3.5-5.1)
--- NOTE | 2016-08-18 07:30 | NUR ---
RECIEVED PT DURING WALKING ROUNDS. PT RESTIN IN BED WITH NO COMPLAINTS OF PAIN OR DISCOMFORT AT THIS TIME. ASSESSMENT DONE PER FLOWSHEET, BED IN LOW POSITION AND CALL LIGHT WITHIN REACH. WILL CONTINUE TO MONITOR.
[2016-08-18 08:29] VITALS: BP 170/98
[2016-08-18 12:47] VITALS: BP 140/89
--- NOTE | 2016-08-18 16:08 | NUR ---
SPOKE WITH NABIL ROMAN NURSE CNA GNA FOR DR ARTHUR FOR TRANSFER TO [facility]
[2016-08-18 17:06] VITALS: BP 143/90
--- NOTE | 2016-08-18 19:59 | NUR ---
PT GIVEN DISCHARGE INSTRUCTIONS. IV DC'D WITH CATH TIP INTACT. PT ESCORTED TO PRIVATE VEHICLE VIA WHEELCHAIR
== END 2016-08-18 20:00 | disposition home or self-care (01) | DRG 638 ==
LOC: D.ER 02:27 → D.ICU 06:24 → D.MS 06:24
PROVIDERS: Family Medicine; Internal Medicine; ADMIT Family Medicine
DX: E10.10 Type 1 diabetes mellitus with ketoacidosis without coma (principal); E87.1 Hypo-osmolality and hyponatremia; N17.9 Acute kidney failure, unspecified; J98.11 Atelectasis; Z79.4 Long term (current) use of insulin; Z96.41 Presence of insulin pump (external) (internal); E10.22 Type 1 diabetes mellitus with diabetic chronic kidney disease; N18.9 Chronic kidney disease, unspecified; E10.3599 Type 1 diabetes mellitus with proliferative diabetic retinopathy without macular edema, unspecified eye; E10.21 Type 1 diabetes mellitus with diabetic nephropathy; Z91.11 Patient's noncompliance with dietary regimen; E83.51 Hypocalcemia; E87.5 Hyperkalemia; F31.9 Bipolar disorder, unspecified; B19.20 Unspecified viral hepatitis C without hepatic coma; F12.90 Cannabis use, unspecified, uncomplicated; F11.90 Opioid use, unspecified, uncomplicated; Z72.0 Tobacco use

== ENCOUNTER 2016-11-15 09:36 | Inpatient (IN) | payer MEDICAID ==
[~2016-11-15] VITALS: Ht 172.7 cm; Wt 55.6 kg
[2016-11-15] VITALS (7 sets, daily range): BP systolic 137–174; BP diastolic 93–110; BMI 18.5
[2016-11-15 10:44] LABS: BASOPHILS 0.2 % (0-2); EOSINOPHILS 0.4 % (0-7); HEMATOCRIT 44.5 % (42.0-54.0); HEMOGLOBIN 14.9 g/dL (13.5-17.5); IMMATURE GRANULOCYTES 0.2 % (0-5); LYMPHOCYTES 7.8 % (15-50); MCH 30.5 pg (26.0-34.0); MCHC 33.5 g/dL (31.0-37.0); MCV 91.2 fL (80.0-100.0); MEAN PLATELET VOLUME 11.2 fL (7.4-10.4); NEUTROPHILS 85.4 % (40-80); RBC 4.88 10x6/uL (4.20-6.10); RDW 13.2 % (11.5-14.5); WBC 18.3 10x3/uL (4.8-10.8)
[2016-11-15 10:50] LABS: PLATELET COUNT 338 10x3/uL (130-400)
[2016-11-15 11:00] LABS: KETONE - SERUM SMALL mg/dL (NEGATIVE)
[2016-11-15 11:07] LABS: ALBUMIN 3.8 g/dL (3.4-5.0); ALKALINE PHOSPHATASE 152 U/L (46-116); ALT (SGPT) 74 U/L (10-68); AMYLASE - SERUM 88 U/L (25-115); CALCIUM 10.6 mg/dL (8.5-10.1); CHLORIDE - SERUM 93 mmol/L (98-107); CREATININE - SERUM 3.3 mg/dL (0.6-1.3); LIPASE 155 U/L (73-393); POTASSIUM - SERUM 4.5 mmol/L (3.5-5.1); PROTEIN - SERUM 7.9 g/dL (6.4-8.2); SODIUM 134 mmol/L (136-145); UREA NITROGEN 68 mg/dL (7-18); eGFR NON AFRICAN AMERICAN 23 mL/min (90-120)
[2016-11-15 11:23] LABS: CALC OSMOLALITY 343 mosm/kg (275-300); GLUCOSE 1100 mg/dL (74-106)
[2016-11-15 12:41] LABS: APPEARANCE CLEAR (CLEAR); BACTERIA FEW /hpf (NONE SEEN); BILIRUBIN NEGATIVE (NEGATIVE); COLOR STRAW (YELLOW); EPITHELIAL CELLS RARE /hpf (0-5); GLUCOSE 1000 mg/dL (NEGATIVE); KETONE LARGE mg/dL (NEGATIVE); LEUKOCYTE ESTERASE NEGATIVE (NEGATIVE); NITRITE NEGATIVE (NEGATIVE); PROTEIN 3+ mg/dL (NEGATIVE); RED CELLS - URINE 0-5 /hpf (0-5); UROBILINOGEN NORMAL (NORMAL)
[2016-11-15 18:42] LABS: KETONE - SERUM NEGATIVE (NEGATIVE)
[2016-11-15 18:46] LABS: MAGNESIUM - SERUM 2.5 mg/dL (1.8-2.4)
[2016-11-15 22:55] LABS: CALCIUM 9.5 mg/dL (8.5-10.1); CREATININE - SERUM 2.8 mg/dL (0.6-1.3); MAGNESIUM - SERUM 2.3 mg/dL (1.8-2.4); PHOSPHOROUS 4.3 mg/dL (2.5-4.9)
[2016-11-15 23:05] LABS: ANION GAP 15.1 mmol/L (8-16); CARBON DIOXIDE 26.7 mmol/L (21.0-32.0); POTASSIUM - SERUM 3.8 mmol/L (3.5-5.1)
[2016-11-16] VITALS (14 sets, daily range): BP systolic 118–175; BP diastolic 75–112; Ht 172.7 cm; Wt 55.6 kg
[2016-11-16 04:34] LABS: HEMATOCRIT 36.8 % (42.0-54.0); HEMOGLOBIN 12.7 g/dL (13.5-17.5); MCH 30.1 pg (26.0-34.0); MCHC 34.5 g/dL (31.0-37.0); MCV 87.2 fL (80.0-100.0); MEAN PLATELET VOLUME 10.4 fL (7.4-10.4); PLATELET COUNT 335 10x3/uL (130-400); RBC 4.22 10x6/uL (4.20-6.10); RDW 13.3 % (11.5-14.5); WBC 21.3 10x3/uL (4.8-10.8)
[2016-11-16 05:01] LABS: CALCIUM 8.5 mg/dL (8.5-10.1); CARBON DIOXIDE 25.9 mmol/L (21.0-32.0); CREATININE - SERUM 2.5 mg/dL (0.6-1.3)
[2016-11-16 05:22] LABS: BASOPHILS 1 % (0-2); EOSINOPHILS 1 % (0-7); LYMPHOCYTES 19 % (15-50); MONOCYTES 4 % (2-11); NEUTROPHILS 75 % (40-80); PLATELET ESTIMATE NORMAL
[2016-11-16 06:13] LABS: ANION GAP 13.4 mmol/L (8-16); POTASSIUM - SERUM 3.3 mmol/L (3.5-5.1)
[2016-11-16 11:56] LABS: CKMB 2.1 U/L (0.0-3.6); CREATINE KINASE 204 UL (21-232)
[2016-11-16 11:57] LABS: POTASSIUM - SERUM 3.9 mmol/L (3.5-5.1); TROPONIN-I < 0.017 ng/mL (0.000-0.060)
[2016-11-16 12:39] LABS: APPEARANCE CLEAR (CLEAR); BACTERIA FEW /hpf (NONE SEEN); BILIRUBIN NEGATIVE (NEGATIVE); COLOR YELLOW (YELLOW); EPITHELIAL CELLS OCC /hpf (0-5); GLUCOSE 100 mg/dL (NEGATIVE); KETONE MODERATE mg/dL (NEGATIVE); LEUKOCYTE ESTERASE NEGATIVE (NEGATIVE); NITRITE NEGATIVE (NEGATIVE); PROTEIN 3+ mg/dL (NEGATIVE); RED CELLS - URINE 0-5 /hpf (0-5); SPECIFIC GRAVITY 1.015 (1.005-1.020); UROBILINOGEN NORMAL (NORMAL)
[2016-11-17 03:00] VITALS: BP 115/78
[2016-11-17 03:27] LABS: BASOPHILS 0.4 % (0-2); EOSINOPHILS 2.6 % (0-7); HEMATOCRIT 41.1 % (42.0-54.0); HEMOGLOBIN 13.9 g/dL (13.5-17.5); IMMATURE GRANULOCYTES 0.2 % (0-5); MCH 30.3 pg (26.0-34.0); MCHC 33.8 g/dL (31.0-37.0); MEAN PLATELET VOLUME 10.1 fL (7.4-10.4); MONOCYTES 7.9 % (2-11); NEUTROPHILS 61.9 % (40-80); PLATELET COUNT 278 10x3/uL (130-400); RBC 4.58 10x6/uL (4.20-6.10)
[2016-11-17 03:30] LABS: MCV 89.7 fL (80.0-100.0); WBC 9.2 10x3/uL (4.8-10.8)
[2016-11-17 03:42] LABS: ANION GAP 14.2 mmol/L (8-16); CALCIUM 8.5 mg/dL (8.5-10.1); CARBON DIOXIDE 27.9 mmol/L (21.0-32.0); CREATININE - SERUM 2.3 mg/dL (0.6-1.3)
[2016-11-17 03:44] LABS: POTASSIUM - SERUM 3.1 mmol/L (3.5-5.1)
[2016-11-17 09:39] VITALS: BP 130/89
[2016-11-17 12:57] VITALS: BP 114/86
[2016-11-17 16:30] VITALS: BP 140/96
[2016-11-17 20:00] VITALS: BP 135/91
[2016-11-18] VITALS: BP 138/92
[2016-11-18 04:00] VITALS: BP 156/94
[2016-11-18 04:57] LABS: BASOPHILS 0.6 % (0-2); EOSINOPHILS 5.1 % (0-7); HEMATOCRIT 40.4 % (42.0-54.0); HEMOGLOBIN 13.4 g/dL (13.5-17.5); IMMATURE GRANULOCYTES 0.2 % (0-5); LYMPHOCYTES 37.5 % (15-50); MCH 29.8 pg (26.0-34.0); MCHC 33.2 g/dL (31.0-37.0); MCV 89.8 fL (80.0-100.0); MEAN PLATELET VOLUME 10.5 fL (7.4-10.4); MONOCYTES 7.7 % (2-11); NEUTROPHILS 48.9 % (40-80); PLATELET COUNT 294 10x3/uL (130-400); RDW 13.1 % (11.5-14.5); WBC 8.4 10x3/uL (4.8-10.8)
[2016-11-18 05:11] LABS: ANION GAP 13.3 mmol/L (8-16); CALCIUM 8.4 mg/dL (8.5-10.1); CARBON DIOXIDE 25.4 mmol/L (21.0-32.0); CREATININE - SERUM 2.1 mg/dL (0.6-1.3); MAGNESIUM - SERUM 1.9 mg/dL (1.8-2.4); PHOSPHOROUS 3.5 mg/dL (2.5-4.9)
[2016-11-18 05:12] LABS: POTASSIUM - SERUM 5.7 mmol/L (3.5-5.1)
[2016-11-18 09:31] VITALS: BP 138/86
[2016-11-18 12:46] VITALS: BP 126/88
== END 2016-11-18 14:07 | disposition home or self-care (01) | DRG 638 ==
LOC: D.ER 09:36 → D.ICU 16:48 → D.MS 16:48
PROVIDERS: Family Medicine; Internal Medicine Nephrology; Physician Assistant; ADMIT Emergency Medicine
DX: E10.10 Type 1 diabetes mellitus with ketoacidosis without coma (principal); N17.9 Acute kidney failure, unspecified; N18.4 Chronic kidney disease, stage 4 (severe); E10.40 Type 1 diabetes mellitus with diabetic neuropathy, unspecified; E10.65 Type 1 diabetes mellitus with hyperglycemia; E10.21 Type 1 diabetes mellitus with diabetic nephropathy; E10.39 Type 1 diabetes mellitus with other diabetic ophthalmic complication; Z79.4 Long term (current) use of insulin; I12.9 Hypertensive chronic kidney disease with stage 1 through stage 4 chronic kidney disease, or unspecified chronic kidney disease; B18.2 Chronic viral hepatitis C; F31.9 Bipolar disorder, unspecified; F41.9 Anxiety disorder, unspecified; E10.22 Type 1 diabetes mellitus with diabetic chronic kidney disease

== ENCOUNTER → 2017-03-20 09:29 | Outpatient (CLI) | payer MEDICAID ==
[2016-11-16 09:54] VITALS: BMI 18.8
== END | disposition home or self-care (01) ==
LOC: D.US 09:29
DX: N18.3 Chronic kidney disease, stage 3 (moderate) (principal); I10 Essential (primary) hypertension; E10.341 Type 1 diabetes mellitus with severe nonproliferative diabetic retinopathy with macular edema; B18.2 Chronic viral hepatitis C; E87.5 Hyperkalemia

== ENCOUNTER 2017-04-12 09:48 | Emergency (ER) | payer MEDICAID ==
[2016-11-16 09:54] VITALS: BMI 18.8
== END 2017-04-12 12:00 | disposition home or self-care (01) ==
LOC: D.ER 09:48
DX: S39.012A Strain of muscle, fascia and tendon of lower back, initial encounter (principal); W10.9XXA Fall (on) (from) unspecified stairs and steps, initial encounter; Y93.89 Activity, other specified; Y92.019 Unspecified place in single-family (private) house as the place of occurrence of the external cause; K21.9 Gastro-esophageal reflux disease without esophagitis; F17.200 Nicotine dependence, unspecified, uncomplicated

== ENCOUNTER 2017-04-22 16:39 | Emergency (ER) | payer MEDICAID ==
[2016-11-16 09:54] VITALS: BMI 18.8
[2017-04-22 18:24] LABS: BASOPHILS 0.3 % (0-2); EOSINOPHILS 1.8 % (0-7); HEMATOCRIT 38.6 % (42.0-54.0); HEMOGLOBIN 12.9 g/dL (13.5-17.5); IMMATURE GRANULOCYTES 0.4 % (0-5); LYMPHOCYTES 10.1 % (15-50); MCH 29.8 pg (26.0-34.0); MCHC 33.4 g/dL (31.0-37.0); MCV 89.1 fL (80.0-100.0); MEAN PLATELET VOLUME 9.7 fL (7.4-10.4); MONOCYTES 3.5 % (2-11); NEUTROPHILS 83.9 % (40-80); RBC 4.33 10x6/uL (4.20-6.10); RDW 13.3 % (11.5-14.5); WBC 14.1 10x3/uL (4.8-10.8)
[2017-04-22 18:25] LABS: PLATELET COUNT 406 10x3/uL (130-400)
[2017-04-22 18:30] LABS: APPEARANCE CLEAR (CLEAR); BILIRUBIN NEGATIVE (NEGATIVE); COLOR STRAW (YELLOW); GLUCOSE 500 mg/dL (NEGATIVE); KETONE NEGATIVE (NEGATIVE); NITRITE NEGATIVE (NEGATIVE); PROTEIN 2+ mg/dL (NEGATIVE); UROBILINOGEN NORMAL (NORMAL)
[2017-04-22 18:32] LABS: BACTERIA MODERATE /hpf (NONE SEEN); EPITHELIAL CELLS 0-5 /hpf (0-5); SPERMATOZOA PRESENT /hpf (NONE SEEN)
[2017-04-22 18:40] LABS: ALBUMIN 2.7 g/dL (3.4-5.0); ANION GAP 15.2 mmol/L (8-16); BILIRUBIN - TOTAL 0.18 mg/dL (0.2-1.3); CALCIUM 9.4 mg/dL (8.5-10.1); CARBON DIOXIDE 23.9 mmol/L (21.0-32.0); CREATININE - SERUM 3.8 mg/dL (0.6-1.3); POTASSIUM - SERUM 4.1 mmol/L (3.5-5.1); PROTEIN - SERUM 7.4 g/dL (6.4-8.2)
[2017-04-22 20:31] LABS: UDS - AMPHET NEGATIVE QUAL (NEGATIVE); UDS - BARB NEGATIVE QUAL (NEGATIVE); UDS - BENZO POSITIVE QUAL (NEGATIVE); UDS - COCAINE NEGATIVE QUAL (NEGATIVE); UDS - OPIATE NEGATIVE QUAL (NEGATIVE); UDS - PCP NEGATIVE QUAL (NEGATIVE); UDS - THC POSITIVE QUAL (NEGATIVE)
== END 2017-04-22 22:57 | disposition home or self-care (01) ==
LOC: D.ER 16:39
PROVIDERS: Emergency Medicine; Physician Assistant
DX: I12.9 Hypertensive chronic kidney disease with stage 1 through stage 4 chronic kidney disease, or unspecified chronic kidney disease (principal); N18.9 Chronic kidney disease, unspecified; E11.9 Type 2 diabetes mellitus without complications; Z79.4 Long term (current) use of insulin; R51 Headache; R11.2 Nausea with vomiting, unspecified; R19.7 Diarrhea, unspecified

== ENCOUNTER 2017-04-29 15:18 | Emergency (ER) | payer MEDICAID ==
[2016-11-16 09:54] VITALS: BMI 18.8
[2017-04-29 16:15] LABS: BASOPHILS 0.5 % (0-2); EOSINOPHILS 4.1 % (0-7); HEMATOCRIT 39.6 % (42.0-54.0); HEMOGLOBIN 13.5 g/dL (13.5-17.5); IMMATURE GRANULOCYTES 0.5 % (0-5); LYMPHOCYTES 8.8 % (15-50); MCH 29.9 pg (26.0-34.0); MCHC 34.1 g/dL (31.0-37.0); MCV 87.6 fL (80.0-100.0); MEAN PLATELET VOLUME 9.8 fL (7.4-10.4); MONOCYTES 3.9 % (2-11); NEUTROPHILS 82.2 % (40-80); PLATELET COUNT 391 10x3/uL (130-400); RBC 4.52 10x6/uL (4.20-6.10); RDW 13.4 % (11.5-14.5); WBC 16.9 10x3/uL (4.8-10.8)
[2017-04-29 16:40] LABS: ALBUMIN 2.6 g/dL (3.4-5.0); ANION GAP 16.8 mmol/L (8-16); BILIRUBIN - TOTAL 0.21 mg/dL (0.2-1.3); CALCIUM 9.3 mg/dL (8.5-10.1); CARBON DIOXIDE 22.3 mmol/L (21.0-32.0); CREATININE - SERUM 4.3 mg/dL (0.6-1.3); POTASSIUM - SERUM 5.1 mmol/L (3.5-5.1); PROTEIN - SERUM 7.6 g/dL (6.4-8.2)
[2017-04-29 17:04] LABS: APPEARANCE CLEAR (CLEAR); COLOR STRAW (YELLOW)
[2017-04-29 17:05] LABS: BILIRUBIN NEGATIVE (NEGATIVE); GLUCOSE 1000 mg/dL (NEGATIVE); KETONE SMALL mg/dL (NEGATIVE); NITRITE NEGATIVE (NEGATIVE); PROTEIN 3+ mg/dL (NEGATIVE); UROBILINOGEN NORMAL (NORMAL)
[2017-04-29 17:19] LABS: BACTERIA FEW /hpf (NONE SEEN); EPITHELIAL CELLS OCC /hpf (0-5); WHITE CELLS - URINE 0-5 /hpf (0-5)
== END 2017-04-29 22:28 | disposition home or self-care (01) ==
LOC: D.ER 15:18
PROVIDERS: Emergency Medicine
DX: R10.9 Unspecified abdominal pain (principal); E11.65 Type 2 diabetes mellitus with hyperglycemia; Z79.4 Long term (current) use of insulin; N18.9 Chronic kidney disease, unspecified; I12.9 Hypertensive chronic kidney disease with stage 1 through stage 4 chronic kidney disease, or unspecified chronic kidney disease; K52.9 Noninfective gastroenteritis and colitis, unspecified; F17.200 Nicotine dependence, unspecified, uncomplicated

== ENCOUNTER 2017-05-05 15:14 | Emergency (ER) | payer MEDICAID ==
[2016-11-16 09:54] VITALS: BMI 18.8
[2017-05-05 15:45] LABS: BASOPHILS 0.6 % (0-2); HEMATOCRIT 38.3 % (42.0-54.0); HEMOGLOBIN 12.6 g/dL (13.5-17.5); IMMATURE GRANULOCYTES 0.4 % (0-5); LYMPHOCYTES 20.5 % (15-50); MCH 29.9 pg (26.0-34.0); MCHC 32.9 g/dL (31.0-37.0); MCV 90.8 fL (80.0-100.0); MEAN PLATELET VOLUME 10.4 fL (7.4-10.4); MONOCYTES 8.9 % (2-11); NEUTROPHILS 61.6 % (40-80); PLATELET COUNT 400 10x3/uL (130-400); RBC 4.22 10x6/uL (4.20-6.10); RDW 14.5 % (11.5-14.5); WBC 14.4 10x3/uL (4.8-10.8)
[2017-05-05 17:02] LABS: ALBUMIN 2.1 g/dL (3.4-5.0); BILIRUBIN - TOTAL 0.17 mg/dL (0.2-1.3); CALCIUM 8.2 mg/dL (8.5-10.1); CARBON DIOXIDE 26.4 mmol/L (21.0-32.0); CREATININE - SERUM 4.1 mg/dL (0.6-1.3); POTASSIUM - SERUM 4.4 mmol/L (3.5-5.1); PROTEIN - SERUM 5.7 g/dL (6.4-8.2)
== END 2017-05-05 23:20 | disposition home or self-care (01) ==
LOC: D.ER 15:14
PROVIDERS: Physician Assistant
DX: N18.9 Chronic kidney disease, unspecified (principal); S00.93XA Contusion of unspecified part of head, initial encounter; W19.XXXA Unspecified fall, initial encounter; Y93.89 Activity, other specified; Y92.019 Unspecified place in single-family (private) house as the place of occurrence of the external cause; E11.649 Type 2 diabetes mellitus with hypoglycemia without coma; Z79.4 Long term (current) use of insulin; R41.82 Altered mental status, unspecified; R00.1 Bradycardia, unspecified

== ENCOUNTER 2017-05-07 00:21 | Emergency (ER) | payer MEDICAID ==
[2016-11-16 09:54] VITALS: BMI 18.8
[2017-05-07 01:04] LABS: BASOPHILS 0.5 % (0-2); EOSINOPHILS 10.1 % (0-7); HEMATOCRIT 37.9 % (42.0-54.0); HEMOGLOBIN 12.2 g/dL (13.5-17.5); IMMATURE GRANULOCYTES 0.5 % (0-5); LYMPHOCYTES 15.3 % (15-50); MCH 29.7 pg (26.0-34.0); MCHC 32.2 g/dL (31.0-37.0); MCV 92.2 fL (80.0-100.0); MEAN PLATELET VOLUME 9.8 fL (7.4-10.4); MONOCYTES 6.1 % (2-11); NEUTROPHILS 67.5 % (40-80); PLATELET COUNT 368 10x3/uL (130-400); RBC 4.11 10x6/uL (4.20-6.10); RDW 14.5 % (11.5-14.5); WBC 15.8 10x3/uL (4.8-10.8)
[2017-05-07 01:14] LABS: ANION GAP 9.9 mmol/L (8-16); CALCIUM 8.5 mg/dL (8.5-10.1); CARBON DIOXIDE 26.2 mmol/L (21.0-32.0); CREATININE - SERUM 4.5 mg/dL (0.6-1.3)
[2017-05-07 01:15] LABS: POTASSIUM - SERUM 5.1 mmol/L (3.5-5.1)
== END 2017-05-07 01:34 | disposition home or self-care (01) ==
LOC: D.ER 00:21
PROVIDERS: Nurse Practitioner Family
DX: E11.649 Type 2 diabetes mellitus with hypoglycemia without coma (principal); Z79.4 Long term (current) use of insulin; Z96.41 Presence of insulin pump (external) (internal); N18.9 Chronic kidney disease, unspecified

== ENCOUNTER 2017-05-08 11:06 | Inpatient (IN) | payer MEDICAID ==
[2017-05-08] VITALS (33 sets, daily range): BP systolic 98–159; BP diastolic 48–76; BMI 24.5
[~2017-05-08] VITALS: Ht 172.7 cm; Wt 69.1 kg
--- NOTE | ~2017-05-08 | EC ---
PATIENT:OLIVER TALAVERA DATE OF SERVICE: 05/08/17 SEX: M MEDICAL RECORD: [id number] DATE OF : [birth year] LOCATION:[facility] AGE OF PATIENT: 32 ADMISSION DATE: 05/08/17 REFERRING PHYSICIAN: INTERPRETING PHYSICIAN: AARON CAMACHO MD ECHOCARDIOGRAM REPORT ECHO CHARGES 4 ECHO COMPLETE CLINICAL DIAGNOSIS: S/P CODE ECHOCARDIOGRAPHIC MEASUREMENTS (adult normal given) AC root (d.<3.7cm) 2.7 cm LV Septum d (<1.2 cm> 1.5 cm Valve Excursion 1.7 cm LV Septum (systole) 2.1 cm Left Atria (s.<4.0cm> 3.4 cm LVPW d(<1.2cm) 1.7 cm RV (d.<2.3cm) 2.5 cm LVPW (sytole) 2.4 cm LV diastole(<5.6CM) 4.4 cm MV E-F(>70mm/sec) cm LV systole 1.8 cm LVOT Diameter 1.8 cm MV exc.(>10mm) cm Est.ejection fraction (50-75%) % Pericardial Effusion N DOPPLER: LVIT cm/sec A 64.0 cm/sec E 112 cm/sec LA cm/sec RVSP 44.0 mmHg LVOT 193 cm/sec AOP1/2T m/s Asc. Ao 197 cm/sec RVOT 80.0 cm/sec RA cm/sec PA 136 cm/sec AV Gradient Peak 16.0 mmHg AV Mean 6.3 mmHg AV Area 2.5 cm MV Gradient Peak 8.1 mmHg MV Mean 3.0 mmHg MV Area cm COMMENTS: Measurement Analyst: Emmanuel MEDRANOOE Card Processing Clerk: 1 Dr. Camacho TAPE# PACS DATE OF SERVICE: 05/08/2017 PROCEDURE: Echocardiogram. FINDINGS: 1. Left ventricular chamber size is within normal limits. Left ventricular systolic function is normal. Overall ejection fraction estimated at 65%. 2. Left atrium is within normal limits at 3.4 cm. Right atrium and right ventricular chamber sizes are mildly dilated. 3. Valvular structures have normal structure and motion. ECHOCARDIOGRAM REPORT [id number] OLIVER TALAVERA 4. Doppler interrogation reveals trace mitral regurgitation, trace tricuspid regurgitation. No other valvular insufficiency or stenosis. Pulmonary systolic pressure is estimated at 44 mmHg. 5. No evidence of pericardial effusion or left ventricular thrombus. TRANSINT:[id number] Voice Confirmation ID: [id number] DOCUMENT ID: [id number] 05/10/2017 Edited to correct date of service, dmm. AARON CAMACHO MD at 1153 CC: [id number] DICTATION DATE: 05/09/17 1314 DESIGN TECHNOLOGY PROFESSOR: 05/09/17 1412 ADM IN [place] [id number] [place] [id number]
--- NOTE | ~2017-05-08 | CN ---
PATIENT NAME:OLIVER JENNINGS MEDICAL RECORD: [id number] : 83 LOCATION:D.MS [id number] ADMIT DATE: 05/08/17 ACCOUNT: [id number] CONSULTING PHYSICIAN: AARON MARQUEZ MD REFERRING PHYSICIAN: LORENA STEPHENSON MD DATE OF CONSULTATION: 05/08/2017 DIAGNOSES: 1. Diabetic ketoacidosis. 2. Status post arrest. HISTORY: Mr. Jennings presented to the Emergency Room with shortness of breath, respiratory distress, diabetic ketoacidosis. He supposedly had an arrest. He became bradycardic, was intubated, had CPR for approximately 14 minutes as well as defibrillation. He is now stable cardiac harden. Echocardiogram reveals an ejection fraction of 60%. Mild left ventricular hypertrophy, but no wall motion abnormalities. No significant valvular disease. REVIEW OF SYSTEMS: The patient reports easy bruising but reports no swollen glands. The patient reports no fever, no night sweats, no significant weight gain, no significant weight loss. No significant exercise tolerance. The patient reports no dry eyes, no irritation, no vision change. Patient reports no difficulty hearing and no ear pain. Patient reports no frequent nose bleeds or nose and sinus problems. Patient reports on arm pain on exertion. No shortness of breath while lying down. No history of heart murmur. Patient reports no cough, no wheezing or coughing up blood. Patient reports no abdominal pain, no vomiting. Normal appetite. No diarrhea and not vomiting blood. No nausea and no constipation. Patient reports no incontinence. No difficulty urinating. No hematuria. No increased frequency. Patient reports no muscle aches. No weakness, no arthralgias, no back pain. No swelling of the extremities. Patient reports no abnormal mole, no jaundice, no rashes. Reports no loss of consciousness. No weakness and no numbness. No seizures, dizziness, or headaches. The patient reports no depression, no sleep disturbance, feeling safe in a relationship and no alcohol abuse. Patient reports on fatigue. Reports no runny nose or sinus pressure. No itching, no hives, and no frequent sneezing. PHYSICAL EXAMINATION: GENERAL APPEARANCE: Well-nourished, well-developed, appears stated age. Level of distress, comfortable. PSYCHIATRIC: Mental status, alert, normal affect. Orientation, oriented to time, place and person. EYES: Lids and conjunctiva, noninjected. No discharge, no pallor. ENT: Lips, teeth, gums, normal dentition. Oropharynx, no cyanosis, no pallor. NECK: Carotid arteries, bilateral normal upstroke, no bruits, no thrills. JUGULAR VEINS: No jugular venous pressure or distention. CERVICAL LYMPH NODES: Nontender, nonenlarged. THYROID: Not enlarged. Nontender. No nodules. LUNGS: Respiratory effort, unlabored. CHEST: Normal curvature. No thoracic deformity. No chest wall tenderness. Percussion, resonant. Auscultation, clear. No wheezes, no rales, no rhonchi. CARDIOVASCULAR: Precordial exam, nondisplaced. No heaves or pericardial thrills. Rate and rhythm, regular. Heart sounds, normal S1, normal S2. No S3, no gallop, no rub. Systolic murmur, not heard. Diastolic murmur, not heard. EXTREMITIES: No cyanosis, no edema. Peripheral pulses, full and equal in all CONSULT REPORT [id number] OLIVER JENNINGS extremities, except as noted. No bruits appreciated. ABDOMEN: Soft, nondistended. Normal aorta. No bruit. Nontender. No masses. Liver, nontender, no hepatomegaly. Spleen, nontender, no splenomegaly. MUSCULOSKELETAL: No joint tenderness. No joint swelling. No erythema. NEUROLOGICAL: Normal gait, normal strength, normal tone. SKIN: Warm and dry. OVERALL IMPRESSION: Status post cardiac arrest. Most likely, this is secondary to hypoxemia and diabetic ketoacidosis and not primary cardiac. He has normal ejection fraction, normal valvular structures, and normal chamber sizes. At this time, no other cardiac workup or treatment necessary. TRANSINT:[id number] Voice Confirmation ID: [id number] DOCUMENT ID: [id number] AARON MARQUEZ MD at 1153 CC: [id number] DICTATION DATE: 05/08/17 1547 CARBON CAPTURE POWER PLANT OPERATOR: 05/08/17 1814 [place] [address]
[2017-05-08 12:12] LABS: ALBUMIN 2.1 g/dL (3.4-5.0); ALKALINE PHOSPHATASE 187 U/L (46-116); ALT (SGPT) 62 U/L (10-68); BILIRUBIN - TOTAL 0.54 mg/dL (0.2-1.3); CALC OSMOLALITY 339 mosm/kg (275-300); CALCIUM 8.8 mg/dL (8.5-10.1); CHLORIDE - SERUM 97 mmol/L (98-107); CKMB 13.3 U/L (0.0-3.6); CREATINE KINASE 926 UL (21-232); CREATININE - SERUM 7.6 mg/dL (0.6-1.3); MAGNESIUM - SERUM 2.9 mg/dL (1.8-2.4); PROTEIN - SERUM 5.8 g/dL (6.4-8.2); SODIUM 133 mmol/L (136-145); UREA NITROGEN 89 mg/dL (7-18); eGFR NON AFRICAN AMERICAN 9 mL/min (90-120)
[2017-05-08 12:13] LABS: GLUCOSE 936 mg/dL (74-106)
[2017-05-08 12:14] LABS: CARBON DIOXIDE 6.5 mmol/L (21.0-32.0); POTASSIUM - SERUM 7.7 mmol/L (3.5-5.1)
[2017-05-08 12:22] LABS: KETONE - SERUM MODERATE mg/dL (NEGATIVE)
[2017-05-08 12:46] LABS: HEMATOCRIT 39.8 % (42.0-54.0); HEMOGLOBIN 11.2 g/dL (13.5-17.5); MCH 29.6 pg (26.0-34.0); MCHC 28.1 g/dL (31.0-37.0); MCV 105.3 fL (80.0-100.0); MEAN PLATELET VOLUME 11.3 fL (7.4-10.4); PLATELET COUNT 349 10x3/uL (130-400); RBC 3.78 10x6/uL (4.20-6.10); RDW 14.4 % (11.5-14.5); WBC 43.7 10x3/uL (4.8-10.8)
[2017-05-08 12:49] LABS: EOSINOPHILS 1 % (0-7); LYMPHOCYTES 25 % (15-50); MONOCYTES 4 % (2-11); NEUTROPHILS 58 % (40-80); PLATELET ESTIMATE NORMAL; ROULEAUX OCC
[2017-05-08 13:36] LABS: ANION GAP 36.5 mmol/L (8-16); CALCIUM 7.4 mg/dL (8.5-10.1); CARBON DIOXIDE 3.7 mmol/L (21.0-32.0); CREATININE - SERUM 7.1 mg/dL (0.6-1.3); MAGNESIUM - SERUM 2.5 mg/dL (1.8-2.4); POTASSIUM - SERUM 7.2 mmol/L (3.5-5.1)
[2017-05-08 13:43] LABS: BASOPHILS 0.2 % (0-2); EOSINOPHILS 1.8 % (0-7); HEMATOCRIT 32.5 % (42.0-54.0); HEMOGLOBIN 9.2 g/dL (13.5-17.5); LYMPHOCYTES 13.3 % (15-50); MCH 29.3 pg (26.0-34.0); MCHC 28.3 g/dL (31.0-37.0); MCV 103.5 fL (80.0-100.0); MEAN PLATELET VOLUME 10.8 fL (7.4-10.4); NEUTROPHILS 74.7 % (40-80); PLATELET COUNT 337 10x3/uL (130-400); RBC 3.14 10x6/uL (4.20-6.10); RDW 14.5 % (11.5-14.5); WBC 39.9 10x3/uL (4.8-10.8)
[2017-05-08 15:37] LABS: % SATURATION 52 % (15-55); IRON 160 ug/dl (35-150); TOTAL IRON BIND CAPACITY 307 ug/dl (260-445); UNSAT IRON BIND CAPACITY 147 ug/dl (150-375)
[2017-05-08 17:11] LABS: ALBUMIN 1.8 g/dL (3.4-5.0); BILIRUBIN - TOTAL 0.66 mg/dL (0.2-1.3); CALCIUM 8.1 mg/dL (8.5-10.1); CREATININE - SERUM 7.1 mg/dL (0.6-1.3)
[2017-05-08 17:18] LABS: ANION GAP 21.6 mmol/L (8-16)
[2017-05-08 17:20] LABS: CARBON DIOXIDE 8.6 mmol/L (21.0-32.0); POTASSIUM - SERUM 6.2 mmol/L (3.5-5.1)
[2017-05-08 22:00] LABS: APPEARANCE HAZY (CLEAR); COLOR YELLOW (YELLOW); GLUCOSE 1000 mg/dL (NEGATIVE); KETONE MODERATE mg/dL (NEGATIVE); NITRITE NEGATIVE (NEGATIVE); PROTEIN TRACE mg/dL (NEGATIVE); SPECIFIC GRAVITY 1.015 (1.005-1.020)
[2017-05-08 22:01] LABS: BACTERIA MODERATE /hpf (NONE SEEN); BILIRUBIN NEGATIVE (NEGATIVE); RED CELLS - URINE 25-50 /hpf (0-5); UROBILINOGEN NORMAL (NORMAL)
[2017-05-08 22:23] LABS: CALCIUM 7.1 mg/dL (8.5-10.1); CREATININE - SERUM 7.5 mg/dL (0.6-1.3)
[2017-05-08 22:28] LABS: CARBON DIOXIDE 16.8 mmol/L (21.0-32.0); POTASSIUM - SERUM 4.8 mmol/L (3.5-5.1)
[2017-05-09] VITALS (43 sets, daily range): BP systolic 97–139; BP diastolic 47–515; BMI 26.6
[2017-05-09 01:30] LABS: UDS - AMPHET NEGATIVE QUAL (NEGATIVE); UDS - BARB NEGATIVE QUAL (NEGATIVE); UDS - BENZO POSITIVE QUAL (NEGATIVE); UDS - COCAINE NEGATIVE QUAL (NEGATIVE); UDS - OPIATE POSITIVE QUAL (NEGATIVE); UDS - PCP NEGATIVE QUAL (NEGATIVE); UDS - THC POSITIVE QUAL (NEGATIVE)
[2017-05-09 04:04] LABS: BASOPHILS 0.1 % (0-2); EOSINOPHILS 0.3 % (0-7); HEMATOCRIT 29.5 % (42.0-54.0); IMMATURE GRANULOCYTES 1.8 % (0-5); LYMPHOCYTES 5.2 % (15-50); MCH 29.2 pg (26.0-34.0); MCHC 33.9 g/dL (31.0-37.0); MEAN PLATELET VOLUME 10.2 fL (7.4-10.4); MONOCYTES 4.1 % (2-11); NEUTROPHILS 88.5 % (40-80); PLATELET COUNT 322 10x3/uL (130-400); RBC 3.42 10x6/uL (4.20-6.10); RDW 13.4 % (11.5-14.5)
[2017-05-09 04:14] LABS: APTT 34.9 SECONDS (22.8-39.4); INR 1.36 (0.85-1.17); PROTIME 16.3 SECONDS (11.6-15.0)
[2017-05-09 04:21] LABS: WBC 14.7 10x3/uL (4.8-10.8)
[2017-05-09 04:22] LABS: MCV 86.3 fL (80.0-100.0)
[2017-05-09 04:29] LABS: ALBUMIN 1.7 g/dL (3.4-5.0); BILIRUBIN - TOTAL 0.46 mg/dL (0.2-1.3); CALCIUM 7.4 mg/dL (8.5-10.1); CREATININE - SERUM 7.5 mg/dL (0.6-1.3); PROTEIN - SERUM 4.6 g/dL (6.4-8.2); VANCOMYCIN - TROUGH 13.6 ug/mL (10.0-20.0)
[2017-05-09 04:32] LABS: ANION GAP 16.8 mmol/L (8-16); CARBON DIOXIDE 23.7 mmol/L (21.0-32.0); POTASSIUM - SERUM 3.5 mmol/L (3.5-5.1)
[2017-05-09 04:59] LABS: MAGNESIUM - SERUM 1.9 mg/dL (1.8-2.4)
[2017-05-09 05:05] LABS: PHOSPHOROUS 3.5 mg/dL (2.5-4.9)
[2017-05-09 08:19] LABS: FOLATE (FOLIC ACID) - SERUM >20.0 ng/mL (>3.0)
[2017-05-09 08:50] LABS: MAGNESIUM - SERUM 1.9 mg/dL (1.8-2.4); PHOSPHOROUS 1.8 mg/dL (2.5-4.9)
[2017-05-09 16:19] LABS: MAGNESIUM - SERUM 1.8 mg/dL (1.8-2.4)
[2017-05-09 16:38] LABS: PHOSPHOROUS 2.8 mg/dL (2.5-4.9)
[2017-05-10] VITALS (24 sets, daily range): BP systolic 101–153; BP diastolic 46–551
[2017-05-10 03:42] LABS: BASOPHILS 0.2 % (0-2); EOSINOPHILS 4.8 % (0-7); HEMATOCRIT 26.9 % (42.0-54.0); HEMOGLOBIN 9.3 g/dL (13.5-17.5); IMMATURE GRANULOCYTES 0.4 % (0-5); LYMPHOCYTES 11.2 % (15-50); MCH 29.3 pg (26.0-34.0); MCHC 34.6 g/dL (31.0-37.0); MCV 84.9 fL (80.0-100.0); MEAN PLATELET VOLUME 10.2 fL (7.4-10.4); MONOCYTES 5.6 % (2-11); NEUTROPHILS 77.8 % (40-80); RBC 3.17 10x6/uL (4.20-6.10); WBC 16.4 10x3/uL (4.8-10.8)
[2017-05-10 03:46] LABS: PLATELET COUNT 241 10x3/uL (130-400)
[2017-05-10 04:23] LABS: ALBUMIN 1.6 g/dL (3.4-5.0); ALKALINE PHOSPHATASE 278 U/L (46-116); ALT (SGPT) 210 U/L (10-68); BILIRUBIN - TOTAL 0.43 mg/dL (0.2-1.3); CALCIUM 7.6 mg/dL (8.5-10.1); CARBON DIOXIDE 25.3 mmol/L (21.0-32.0); CHLORIDE - SERUM 105 mmol/L (98-107); CREATININE - SERUM 6.9 mg/dL (0.6-1.3); MAGNESIUM - SERUM 1.8 mg/dL (1.8-2.4); POTASSIUM - SERUM 3.9 mmol/L (3.5-5.1); PROTEIN - SERUM 4.8 g/dL (6.4-8.2); SODIUM 142 mmol/L (136-145); UREA NITROGEN 77 mg/dL (7-18); VANCOMYCIN - TROUGH 23.7 ug/mL (10.0-20.0); eGFR NON AFRICAN AMERICAN 10 mL/min (90-120)
[2017-05-10 04:35] LABS: CALC OSMOLALITY 304 mosm/kg (275-300); CKMB 9.5 U/L (0.0-3.6); CREATINE KINASE 2647 UL (21-232); GLUCOSE 82 mg/dL (74-106); PHOSPHOROUS 3.9 mg/dL (2.5-4.9)
[2017-05-10 12:18] LABS: ANA REFLEX - DIRECT Negative (Negative)
[2017-05-11] VITALS (24 sets, daily range): BP systolic 106–160; BP diastolic 57–98
[2017-05-11 04:01] LABS: BASOPHILS 0.5 % (0-2); EOSINOPHILS 10.6 % (0-7); HEMATOCRIT 29.8 % (42.0-54.0); IMMATURE GRANULOCYTES 0.2 % (0-5); LYMPHOCYTES 10.2 % (15-50); MCH 29.4 pg (26.0-34.0); MCHC 33.6 g/dL (31.0-37.0); MEAN PLATELET VOLUME 10.3 fL (7.4-10.4); MONOCYTES 4.1 % (2-11); NEUTROPHILS 74.4 % (40-80); PLATELET COUNT 243 10x3/uL (130-400); RDW 14.5 % (11.5-14.5); WBC 15.3 10x3/uL (4.8-10.8)
[2017-05-11 04:04] LABS: MCV 87.6 fL (80.0-100.0)
[2017-05-11 04:16] LABS: ALBUMIN 1.6 g/dL (3.4-5.0); ANION GAP 16.4 mmol/L (8-16); BILIRUBIN - TOTAL 0.38 mg/dL (0.2-1.3); CALCIUM 8.4 mg/dL (8.5-10.1); CARBON DIOXIDE 24.8 mmol/L (21.0-32.0); CREATININE - SERUM 6.5 mg/dL (0.6-1.3); MAGNESIUM - SERUM 2.1 mg/dL (1.8-2.4); POTASSIUM - SERUM 4.2 mmol/L (3.5-5.1); PROTEIN - SERUM 5.4 g/dL (6.4-8.2); VANCOMYCIN - RANDOM 18.7 ug/mL (10.0-20.0)
[2017-05-11 04:17] LABS: PHOSPHOROUS 5.6 mg/dL (2.5-4.9)
[2017-05-11 09:18] LABS: ANTI-GLOMERULAR BASMENT MEMBRN 3 units (0-20)
[2017-05-12] VITALS (24 sets, daily range): BP systolic 115–180; BP diastolic 63–963
[2017-05-12 04:57] LABS: BASOPHILS 0.3 % (0-2); EOSINOPHILS 6.6 % (0-7); HEMATOCRIT 28.7 % (42.0-54.0); HEMOGLOBIN 9.3 g/dL (13.5-17.5); IMMATURE GRANULOCYTES 0.2 % (0-5); LYMPHOCYTES 9.5 % (15-50); MCH 28.9 pg (26.0-34.0); MCHC 32.4 g/dL (31.0-37.0); MCV 89.1 fL (80.0-100.0); MEAN PLATELET VOLUME 10.1 fL (7.4-10.4); MONOCYTES 3.7 % (2-11); NEUTROPHILS 79.7 % (40-80); PLATELET COUNT 235 10x3/uL (130-400); RBC 3.22 10x6/uL (4.20-6.10); RDW 14.6 % (11.5-14.5); WBC 13.1 10x3/uL (4.8-10.8)
[2017-05-12 05:19] LABS: ALBUMIN 1.4 g/dL (3.4-5.0); ANION GAP 13.8 mmol/L (8-16); BILIRUBIN - TOTAL 0.42 mg/dL (0.2-1.3); CALCIUM 7.9 mg/dL (8.5-10.1); CARBON DIOXIDE 26.4 mmol/L (21.0-32.0); CREATININE - SERUM 5.7 mg/dL (0.6-1.3); POTASSIUM - SERUM 4.2 mmol/L (3.5-5.1); PROTEIN - SERUM 5.2 g/dL (6.4-8.2); VANCOMYCIN - RANDOM 25.6 ug/mL (10.0-20.0)
[2017-05-12 06:23] LABS: MAGNESIUM - SERUM 2.3 mg/dL (1.8-2.4); PHOSPHOROUS 6.6 mg/dL (2.5-4.9)
[2017-05-12 14:21] LABS: ANCA - ANTIMYELOPEROXIDASE <9.0 U/mL (0.0-9.0); ANCA - ANTIPROTEINASE 3 3.6 U/mL (0.0-3.5); ANCA - ATYPICAL <1:20 titer (Neg:<1:20); ANCA - CYTOPLASMIC <1:20 titer (Neg:<1:20); ANCA - PERINUCLEAR <1:20 titer (Neg:<1:20)
[2017-05-13] VITALS (24 sets, daily range): BP systolic 103–160; BP diastolic 59–107
[2017-05-13 03:22] LABS: BASOPHILS 0.2 % (0-2); HEMOGLOBIN 9.4 g/dL (13.5-17.5); IMMATURE GRANULOCYTES 0.3 % (0-5); LYMPHOCYTES 10.5 % (15-50); MCH 28.6 pg (26.0-34.0); MCHC 31.3 g/dL (31.0-37.0); MEAN PLATELET VOLUME 10.3 fL (7.4-10.4); MONOCYTES 6.3 % (2-11); NEUTROPHILS 71.7 % (40-80); PLATELET COUNT 268 10x3/uL (130-400); RBC 3.29 10x6/uL (4.20-6.10); RDW 14.5 % (11.5-14.5); WBC 13.5 10x3/uL (4.8-10.8)
[2017-05-13 03:26] LABS: ALBUMIN 1.4 g/dL (3.4-5.0); ANION GAP 14.9 mmol/L (8-16); BILIRUBIN - TOTAL 0.36 mg/dL (0.2-1.3); CALCIUM 8.1 mg/dL (8.5-10.1); CARBON DIOXIDE 26.1 mmol/L (21.0-32.0); CREATININE - SERUM 4.8 mg/dL (0.6-1.3); MCV 91.2 fL (80.0-100.0); PROTEIN - SERUM 5.4 g/dL (6.4-8.2); VANCOMYCIN - RANDOM 18.5 ug/mL (10.0-20.0)
[2017-05-13 13:32] LABS: CREATININE - URINE 27.8 mg/dL (30-125); PRO/CRE RATIO URINE 3.7 mg/g; PROTEIN - URINE 103.7 mg/dL (0.0-11.9)
[2017-05-13 13:42] LABS: APPEARANCE CLEAR (CLEAR); BILIRUBIN NEGATIVE (NEGATIVE); COLOR STRAW (YELLOW); GLUCOSE NEGATIVE (NEGATIVE); KETONE NEGATIVE (NEGATIVE); NITRITE NEGATIVE (NEGATIVE); PROTEIN 1+ mg/dL (NEGATIVE); UROBILINOGEN NORMAL (NORMAL)
[2017-05-13 13:51] LABS: BACTERIA FEW /hpf (NONE SEEN); EPITHELIAL CELLS OCC /hpf (0-5); HYALINE CAST RARE /lpf (NONE SEEN); RED CELLS - URINE 0-5 /hpf (0-5); WHITE CELLS - URINE 0-5 /hpf (0-5)
[2017-05-14] VITALS (24 sets, daily range): BP systolic 90–143; BP diastolic 49–83
[2017-05-14 04:15] LABS: BASOPHILS 0.4 % (0-2); EOSINOPHILS 16.8 % (0-7); HEMATOCRIT 28.5 % (42.0-54.0); HEMOGLOBIN 8.8 g/dL (13.5-17.5); IMMATURE GRANULOCYTES 0.7 % (0-5); LYMPHOCYTES 17.4 % (15-50); MCH 28.4 pg (26.0-34.0); MCHC 30.9 g/dL (31.0-37.0); MCV 91.9 fL (80.0-100.0); MEAN PLATELET VOLUME 9.6 fL (7.4-10.4); MONOCYTES 7.9 % (2-11); NEUTROPHILS 56.8 % (40-80); PLATELET COUNT 288 10x3/uL (130-400); RDW 14.3 % (11.5-14.5)
[2017-05-14 04:24] LABS: WBC 9.6 10x3/uL (4.8-10.8)
[2017-05-14 05:04] LABS: ALBUMIN 1.3 g/dL (3.4-5.0); ALKALINE PHOSPHATASE 208 U/L (46-116); BILIRUBIN - TOTAL 0.24 mg/dL (0.2-1.3); CALC OSMOLALITY 305 mosm/kg (275-300); CALCIUM 8.2 mg/dL (8.5-10.1); CARBON DIOXIDE 26.5 mmol/L (21.0-32.0); CHLORIDE - SERUM 107 mmol/L (98-107); CREATINE KINASE 570 UL (21-232); CREATININE - SERUM 4.1 mg/dL (0.6-1.3); GLUCOSE 189 mg/dL (74-106); MAGNESIUM - SERUM 2.2 mg/dL (1.8-2.4); PHOSPHOROUS 5.3 mg/dL (2.5-4.9); POTASSIUM - SERUM 3.7 mmol/L (3.5-5.1); PROTEIN - SERUM 5.2 g/dL (6.4-8.2); SODIUM 144 mmol/L (136-145); UREA NITROGEN 52 mg/dL (7-18); VANCOMYCIN - RANDOM 11.9 ug/mL (10.0-20.0); eGFR NON AFRICAN AMERICAN 18 mL/min (90-120)
[2017-05-14 05:06] LABS: ALT (SGPT) 66 U/L (10-68)
[2017-05-14 05:14] LABS: CKMB 2.2 U/L (0.0-3.6)
[2017-05-15] VITALS (24 sets, daily range): BP systolic 95–173; BP diastolic 58–100; Ht 172.7 cm; Wt 69.1 kg
[2017-05-15 04:51] LABS: BASOPHILS 0.3 % (0-2); HEMATOCRIT 28.3 % (42.0-54.0); HEMOGLOBIN 8.9 g/dL (13.5-17.5); IMMATURE GRANULOCYTES 1.8 % (0-5); LYMPHOCYTES 20.1 % (15-50); MCH 28.9 pg (26.0-34.0); MCHC 31.4 g/dL (31.0-37.0); MCV 91.9 fL (80.0-100.0); MEAN PLATELET VOLUME 9.8 fL (7.4-10.4); MONOCYTES 11.8 % (2-11); PLATELET COUNT 335 10x3/uL (130-400); RBC 3.08 10x6/uL (4.20-6.10); RDW 13.9 % (11.5-14.5); WBC 8.7 10x3/uL (4.8-10.8)
[2017-05-15 05:10] LABS: ALBUMIN 1.4 g/dL (3.4-5.0); ANION GAP 11.8 mmol/L (8-16); BILIRUBIN - TOTAL 0.2 mg/dL (0.2-1.3); CARBON DIOXIDE 29.1 mmol/L (21.0-32.0); CREATININE - SERUM 3.8 mg/dL (0.6-1.3); MAGNESIUM - SERUM 2.5 mg/dL (1.8-2.4); PHOSPHOROUS 5.1 mg/dL (2.5-4.9); POTASSIUM - SERUM 3.9 mmol/L (3.5-5.1); PROTEIN - SERUM 5.3 g/dL (6.4-8.2); VANCOMYCIN - RANDOM 7.9 ug/mL (10.0-20.0)
[2017-05-16] VITALS (16 sets, daily range): BP systolic 135–212; BP diastolic 79–128
[2017-05-16 04:50] LABS: BASOPHILS 0.4 % (0-2); EOSINOPHILS 3.4 % (0-7); HEMATOCRIT 33.5 % (42.0-54.0); IMMATURE GRANULOCYTES 0.9 % (0-5); LYMPHOCYTES 12.5 % (15-50); MEAN PLATELET VOLUME 9.6 fL (7.4-10.4); MONOCYTES 11.5 % (2-11); NEUTROPHILS 71.3 % (40-80); RBC 3.68 10x6/uL (4.20-6.10); RDW 13.4 % (11.5-14.5); WBC 10.7 10x3/uL (4.8-10.8)
[2017-05-16 04:59] LABS: HEMOGLOBIN 11.4 g/dL (13.5-17.5); PLATELET COUNT 535 10x3/uL (130-400)
[2017-05-16 05:09] LABS: ANION GAP 14.3 mmol/L (8-16); CARBON DIOXIDE 27.9 mmol/L (21.0-32.0); CREATININE - SERUM 3.3 mg/dL (0.6-1.3); MAGNESIUM - SERUM 2.3 mg/dL (1.8-2.4); POTASSIUM - SERUM 3.2 mmol/L (3.5-5.1)
[2017-05-17] VITALS: BP 149/86
[2017-05-17 04:00] VITALS: BP 144/87
[2017-05-17 07:01] LABS: BASOPHILS 0.4 % (0-2); EOSINOPHILS 2.7 % (0-7); HEMOGLOBIN 10.7 g/dL (13.5-17.5); IMMATURE GRANULOCYTES 0.6 % (0-5); LYMPHOCYTES 15.1 % (15-50); MCH 29.1 pg (26.0-34.0); MCHC 32.4 g/dL (31.0-37.0); MCV 89.7 fL (80.0-100.0); MEAN PLATELET VOLUME 9.1 fL (7.4-10.4); NEUTROPHILS 72.2 % (40-80); RBC 3.68 10x6/uL (4.20-6.10); RDW 13.1 % (11.5-14.5)
[2017-05-17 07:04] LABS: PLATELET COUNT 670 10x3/uL (130-400); WBC 14.2 10x3/uL (4.8-10.8)
[2017-05-17 07:09] LABS: ANION GAP 14.4 mmol/L (8-16); CALCIUM 9.3 mg/dL (8.5-10.1); CARBON DIOXIDE 26.9 mmol/L (21.0-32.0); CREATININE - SERUM 3.1 mg/dL (0.6-1.3); MAGNESIUM - SERUM 2.1 mg/dL (1.8-2.4); POTASSIUM - SERUM 3.3 mmol/L (3.5-5.1)
[2017-05-17 08:45] VITALS: BP 123/73
[2017-05-17 12:45] VITALS: BP 144/91
[2017-05-17 16:43] VITALS: BP 171/111
[2017-05-17 20:00] VITALS: BP 141/84
[2017-05-18] VITALS: BP 123/73
[2017-05-18 04:00] VITALS: BP 129/70
[2017-05-18 04:12] LABS: BASOPHILS 0.2 % (0-2); EOSINOPHILS 3.9 % (0-7); HEMATOCRIT 30.1 % (42.0-54.0); HEMOGLOBIN 9.7 g/dL (13.5-17.5); IMMATURE GRANULOCYTES 0.3 % (0-5); LYMPHOCYTES 16.9 % (15-50); MCH 28.6 pg (26.0-34.0); MCHC 32.2 g/dL (31.0-37.0); MCV 88.8 fL (80.0-100.0); MEAN PLATELET VOLUME 9.2 fL (7.4-10.4); MONOCYTES 8.4 % (2-11); NEUTROPHILS 70.3 % (40-80); PLATELET COUNT 717 10x3/uL (130-400); RBC 3.39 10x6/uL (4.20-6.10); RDW 12.9 % (11.5-14.5); WBC 12.3 10x3/uL (4.8-10.8)
[2017-05-18 04:23] LABS: ANION GAP 13.2 mmol/L (8-16); CALCIUM 8.4 mg/dL (8.5-10.1); CARBON DIOXIDE 25.1 mmol/L (21.0-32.0); CREATININE - SERUM 2.8 mg/dL (0.6-1.3); MAGNESIUM - SERUM 1.7 mg/dL (1.8-2.4); POTASSIUM - SERUM 3.3 mmol/L (3.5-5.1)
[2017-05-18 08:45] VITALS: BP 137/83
[2017-05-18 12:08] VITALS: BP 105/64
[2017-05-18 16:17] VITALS: BP 112/72
[2017-05-18 20:00] VITALS: BP 149/80
[2017-05-19] VITALS: BP 128/89
[2017-05-19 04:00] VITALS: BP 146/95
[2017-05-19 05:36] LABS: BASOPHILS 0.5 % (0-2); EOSINOPHILS 3.3 % (0-7); HEMATOCRIT 31.5 % (42.0-54.0); HEMOGLOBIN 10.4 g/dL (13.5-17.5); IMMATURE GRANULOCYTES 0.4 % (0-5); LYMPHOCYTES 18.6 % (15-50); MCH 28.7 pg (26.0-34.0); MEAN PLATELET VOLUME 8.9 fL (7.4-10.4); MONOCYTES 7.9 % (2-11); NEUTROPHILS 69.3 % (40-80); PLATELET COUNT 760 10x3/uL (130-400); RBC 3.62 10x6/uL (4.20-6.10); RDW 12.7 % (11.5-14.5); WBC 14.6 10x3/uL (4.8-10.8)
[2017-05-19 06:03] LABS: ANION GAP 12.4 mmol/L (8-16); CALCIUM 8.6 mg/dL (8.5-10.1); CREATININE - SERUM 2.8 mg/dL (0.6-1.3); MAGNESIUM - SERUM 1.9 mg/dL (1.8-2.4); POTASSIUM - SERUM 3.4 mmol/L (3.5-5.1)
[2017-05-19 08:43] VITALS: BP 158/93
[2017-05-19 12:46] VITALS: BP 122/79
[2017-05-19 16:26] VITALS: BP 122/73
[2017-05-19 23:02] VITALS: BP 127/75
[2017-05-20 02:45] VITALS: BP 123/64
[2017-05-20 04:32] VITALS: BP 179/97
[2017-05-20 04:53] LABS: BASOPHILS 0.5 % (0-2); EOSINOPHILS 5.1 % (0-7); HEMATOCRIT 28.4 % (42.0-54.0); HEMOGLOBIN 9.3 g/dL (13.5-17.5); IMMATURE GRANULOCYTES 0.4 % (0-5); LYMPHOCYTES 17.8 % (15-50); MCH 28.8 pg (26.0-34.0); MCHC 32.7 g/dL (31.0-37.0); MCV 87.9 fL (80.0-100.0); MEAN PLATELET VOLUME 9.1 fL (7.4-10.4); MONOCYTES 8.3 % (2-11); NEUTROPHILS 67.9 % (40-80); PLATELET COUNT 710 10x3/uL (130-400); RBC 3.23 10x6/uL (4.20-6.10); RDW 12.9 % (11.5-14.5); WBC 12.7 10x3/uL (4.8-10.8)
[2017-05-20 05:09] LABS: ANION GAP 16.2 mmol/L (8-16); CALCIUM 8.3 mg/dL (8.5-10.1); CARBON DIOXIDE 22.4 mmol/L (21.0-32.0); CREATININE - SERUM 2.9 mg/dL (0.6-1.3); MAGNESIUM - SERUM 1.8 mg/dL (1.8-2.4); POTASSIUM - SERUM 4.6 mmol/L (3.5-5.1)
[2017-05-20 10:51] VITALS: BP 120/86
[2017-05-20 15:20] VITALS: BP 147/91
[2017-05-20 22:58] VITALS: BP 114/69
[2017-05-21 01:21] VITALS: BP 126/70
[2017-05-21 05:44] VITALS: BP 128/74
[2017-05-21 06:45] LABS: BASOPHILS 0.7 % (0-2); EOSINOPHILS 5.7 % (0-7); HEMATOCRIT 31.1 % (42.0-54.0); HEMOGLOBIN 10.2 g/dL (13.5-17.5); IMMATURE GRANULOCYTES 0.5 % (0-5); LYMPHOCYTES 16.9 % (15-50); MCHC 32.8 g/dL (31.0-37.0); MCV 88.4 fL (80.0-100.0); MEAN PLATELET VOLUME 8.9 fL (7.4-10.4); NEUTROPHILS 70.2 % (40-80); PLATELET COUNT 801 10x3/uL (130-400); RBC 3.52 10x6/uL (4.20-6.10); RDW 13.2 % (11.5-14.5); WBC 14.2 10x3/uL (4.8-10.8)
[2017-05-21 07:03] LABS: ALBUMIN 2.1 g/dL (3.4-5.0); ANION GAP 17.5 mmol/L (8-16); BILIRUBIN - TOTAL 0.32 mg/dL (0.2-1.3); CALCIUM 9.1 mg/dL (8.5-10.1); CARBON DIOXIDE 20.3 mmol/L (21.0-32.0); CREATININE - SERUM 3.1 mg/dL (0.6-1.3); POTASSIUM - SERUM 4.8 mmol/L (3.5-5.1); PROTEIN - SERUM 6.4 g/dL (6.4-8.2)
[2017-05-21 09:00] VITALS: BP 157/98
[2017-05-21 13:13] VITALS: BP 188/117
[2017-05-21 16:58] VITALS: BP 115/86
[2017-05-21 23:07] VITALS: BP 124/83
[2017-05-22 05:06] VITALS: BP 139/89
[2017-05-22 05:11] LABS: BASOPHILS 0.9 % (0-2); HEMATOCRIT 30.1 % (42.0-54.0); HEMOGLOBIN 9.7 g/dL (13.5-17.5); IMMATURE GRANULOCYTES 0.5 % (0-5); LYMPHOCYTES 17.6 % (15-50); MCH 28.4 pg (26.0-34.0); MCHC 32.2 g/dL (31.0-37.0); MCV 88.3 fL (80.0-100.0); MEAN PLATELET VOLUME 9.2 fL (7.4-10.4); MONOCYTES 6.1 % (2-11); NEUTROPHILS 68.9 % (40-80); PLATELET COUNT 853 10x3/uL (130-400); RBC 3.41 10x6/uL (4.20-6.10); WBC 13.1 10x3/uL (4.8-10.8)
[2017-05-22 05:24] LABS: ANION GAP 15.7 mmol/L (8-16); BILIRUBIN - TOTAL 0.24 mg/dL (0.2-1.3); CALCIUM 8.3 mg/dL (8.5-10.1); CARBON DIOXIDE 22.5 mmol/L (21.0-32.0); CREATININE - SERUM 3.2 mg/dL (0.6-1.3); POTASSIUM - SERUM 4.2 mmol/L (3.5-5.1); PROTEIN - SERUM 5.9 g/dL (6.4-8.2)
[2017-05-22 08:18] VITALS: BP 148/100
[2017-05-22 13:20] VITALS: BP 154/92
[2017-05-22] MEDS ORDERED: LEVEMIR100 U/M1 SC (16:11)
[2017-05-22] MEDS ORDERED: HUMALOG 30100 UNITS/ SC (16:12)
[2017-05-22 16:47] VITALS: BP 123/87
== END 2017-05-22 19:32 | disposition home or self-care (01) | DRG 637 ==
LOC: D.ER 11:06 → D.EDHOLD 14:29 → D.MS 14:29 → D.ICU 14:29 → D.MS 05-16 17:24
PROVIDERS: Family Medicine; Internal Medicine Nephrology; Internal Medicine Pulmonary Disease
PROC: 05HC33Z Insertion of Infusion Device into Left Basilic Vein, Percutaneous Approach (ICD-10-PCS; principal; 2017-05-08)
PROC: B54NZZA Ultrasonography of Left Upper Extremity Veins, Guidance (ICD-10-PCS; 2017-05-08)
PROC: 5A12012 Performance of Cardiac Output, Single, Manual (ICD-10-PCS; 2017-05-08)
PROC: 0BH17EZ Insertion of Endotracheal Airway into Trachea, Via Natural or Artificial Opening (ICD-10-PCS; 2017-05-08)
PROC: 5A1955Z Respiratory Ventilation, Greater than 96 Consecutive Hours (ICD-10-PCS; 2017-05-08)
PROC: 0T9B70Z Drainage of Bladder with Drainage Device, Via Natural or Artificial Opening (ICD-10-PCS; 2017-05-08)
DX: E10.10 Type 1 diabetes mellitus with ketoacidosis without coma (principal); N17.0 Acute kidney failure with tubular necrosis; J69.0 Pneumonitis due to inhalation of food and vomit; I46.9 Cardiac arrest, cause unspecified; G93.41 Metabolic encephalopathy; J96.01 Acute respiratory failure with hypoxia; J13 Pneumonia due to Streptococcus pneumoniae; A41.9 Sepsis, unspecified organism; R65.21 Severe sepsis with septic shock; F31.30 Bipolar disorder, current episode depressed, mild or moderate severity, unspecified; G93.1 Anoxic brain damage, not elsewhere classified; J81.1 Chronic pulmonary edema; N39.0 Urinary tract infection, site not specified; M31.0 Hypersensitivity angiitis; E87.2 Acidosis; A04.72 Enterocolitis due to Clostridium difficile, not specified as recurrent; J98.11 Atelectasis; Z79.4 Long term (current) use of insulin; E10.21 Type 1 diabetes mellitus with diabetic nephropathy; E10.39 Type 1 diabetes mellitus with other diabetic ophthalmic complication; E10.49 Type 1 diabetes mellitus with other diabetic neurological complication; I12.9 Hypertensive chronic kidney disease with stage 1 through stage 4 chronic kidney disease, or unspecified chronic kidney disease; E10.22 Type 1 diabetes mellitus with diabetic chronic kidney disease; N18.3 Chronic kidney disease, stage 3 (moderate); E87.5 Hyperkalemia; F41.9 Anxiety disorder, unspecified; B19.20 Unspecified viral hepatitis C without hepatic coma; E88.09 Other disorders of plasma-protein metabolism, not elsewhere classified; K72.90 Hepatic failure, unspecified without coma; S00.12XA Contusion of left eyelid and periocular area, initial encounter; X58.XXXA Exposure to other specified factors, initial encounter; D53.9 Nutritional anemia, unspecified; F12.90 Cannabis use, unspecified, uncomplicated; Z78.1 Physical restraint status; E87.6 Hypokalemia

== ENCOUNTER 2017-12-02 18:01 | Emergency (ER) | payer MEDICAID ==
[~2017-12-02] VITALS: Ht 172.7 cm; Wt 60.9 kg
[~2017-12-02 18:01] MED LIST changes: +LEVEMIR100 U/M1 SC
[2017-12-02 18:11] VITALS: Ht 172.7 cm; Wt 60.9 kg
[2017-12-02] MEDS ORDERED: COREG25 MG PO (20:01)
[2017-12-02] MEDS ORDERED: XANAX2 MG PO (20:02)
[2017-12-02] MEDS ORDERED: LASIX80 MG PO (20:05)
[2017-12-02] MEDS ORDERED: HUMALOG 30100 UNITS/ SC (20:06)
[2017-12-02 20:07] LABS: BASOPHILS 0.6 % (0-2); EOSINOPHILS 2.8 % (0-7); HEMATOCRIT 35.3 % (42.0-54.0); HEMOGLOBIN 11.4 g/dL (13.5-17.5); IMMATURE GRANULOCYTES 0.1 % (0-5); LYMPHOCYTES 15.3 % (15-50); MCH 28.7 pg (26.0-34.0); MCHC 32.3 g/dL (31.0-37.0); MCV 88.9 fL (80.0-100.0); MEAN PLATELET VOLUME 9.5 fL (7.4-10.4); NEUTROPHILS 73.2 % (40-80); RBC 3.97 10x6/uL (4.20-6.10); RDW 16.2 % (11.5-14.5); WBC 8.7 10x3/uL (4.8-10.8)
[2017-12-02] MEDS ORDERED: HYDRALAZINE HCL25 MG PO (20:09)
[2017-12-02] MEDS ORDERED: PHOSLO667 MG PO (20:09)
[2017-12-02] MEDS ORDERED: RENVELA800 MG PO (20:10)
[2017-12-02] MEDS ORDERED: CATAPRES0.1 MG PO (20:11)
[2017-12-02] MEDS ORDERED: GLUCAGEN1 MG/VIAL IM (20:12)
[2017-12-02] MEDS ORDERED: NITROSTAT0.4 MG SL (20:14)
[2017-12-02] MEDS ORDERED: OXYCODONE-APAP1 TAB PO (20:14)
[2017-12-02] MEDS ORDERED: ZOFRAN4 MG PO (20:15)
[2017-12-02] MEDS ORDERED: ACETAMINOPHEN325 MG PO (20:15)
[2017-12-02] MEDS ORDERED: COZAAR100 MG PO (20:16)
[2017-12-02] MEDS ORDERED: PRINIVIL10 MG PO (20:16)
[2017-12-02] MEDS ORDERED: NIFEDIPINE ER90 MG PO (20:17)
[2017-12-02] MEDS ORDERED: VITAMIN D5000 UNIT PO (20:17)
[2017-12-02] MEDS ORDERED: TOUJEO SOL300 UNIT/1 SC (20:18)
[2017-12-02] MEDS ORDERED: ZESTRIL10 MG PO (20:19)
[2017-12-02 20:24] LABS: PLATELET COUNT 366 10x3/uL (130-400)
[2017-12-02 20:38] VITALS: BP 215/114
[2017-12-02 21:00] LABS: APPEARANCE CLEAR (CLEAR); BILIRUBIN NEGATIVE (NEGATIVE); COLOR YELLOW (YELLOW); GLUCOSE 1000 mg/dL (NEGATIVE); KETONE NEGATIVE (NEGATIVE); NITRITE NEGATIVE (NEGATIVE); PROTEIN TRACE mg/dL (NEGATIVE); UROBILINOGEN NORMAL (NORMAL)
[2017-12-02 21:02] LABS: WHITE CELLS - URINE 0-5 /hpf (0-5)
[2017-12-02 21:04] LABS: BACTERIA MODERATE /hpf (NONE SEEN)
[2017-12-02 21:09] LABS: UDS - AMPHET NEGATIVE QUAL (NEGATIVE); UDS - BARB NEGATIVE QUAL (NEGATIVE); UDS - BENZO NEGATIVE QUAL (NEGATIVE); UDS - COCAINE NEGATIVE QUAL (NEGATIVE); UDS - OPIATE NEGATIVE QUAL (NEGATIVE); UDS - PCP NEGATIVE QUAL (NEGATIVE); UDS - THC NEGATIVE QUAL (NEGATIVE)
[2017-12-02 21:20] LABS: ALBUMIN 3.1 g/dL (3.4-5.0); ANION GAP 23.2 mmol/L (8-16); BILIRUBIN - TOTAL 0.22 mg/dL (0.2-1.3); CALCIUM 8.9 mg/dL (8.5-10.1); CARBON DIOXIDE 18.6 mmol/L (21.0-32.0); CREATININE - SERUM 5.2 mg/dL (0.6-1.3); MAGNESIUM - SERUM 2.7 mg/dL (1.8-2.4); POTASSIUM - SERUM 5.8 mmol/L (3.5-5.1); PROTEIN - SERUM 7.3 g/dL (6.4-8.2)
[2017-12-02 21:57] VITALS: BP 159/91
[2017-12-03 00:08] VITALS: BP 159/91
== END 2017-12-03 00:08 | disposition home or self-care (01) ==
LOC: D.ER 18:01 → D.M2 20:35 → D.ER 20:35 → D.M2 20:35 → D.EDHOLD 20:53 → D.M2 20:53 → D.ER 12-03 00:08
PROVIDERS: Family Medicine
DX: I12.9 Hypertensive chronic kidney disease with stage 1 through stage 4 chronic kidney disease, or unspecified chronic kidney disease (principal); N18.9 Chronic kidney disease, unspecified; F91.9 Conduct disorder, unspecified; E11.65 Type 2 diabetes mellitus with hyperglycemia

== ENCOUNTER 2017-12-08 01:59 | Inpatient (IN) | payer MEDICAID ==
[~2017-12-08] VITALS: Ht 172.7 cm; Wt 58.9 kg
--- NOTE | ~2017-12-08 | CN ---
PATIENT NAME:OLIVER TALAVERA MEDICAL RECORD: [id number] : 83 LOCATION:D. D.2140 ADMIT DATE: 12/08/17 ACCOUNT: [id number] CONSULTING PHYSICIAN: FAMILIA NIX MD REFERRING PHYSICIAN: VINCENT HAMMER MD DATE OF CONSULTATION: 12/10/2017 IDENTIFYING DATA: The patient is 32 years old. He is admitted to the hospital secondary to end-stage renal disease. CHIEF COMPLAINT: None. HISTORY OF PRESENT ILLNESS: The patient apparently had a port for dialysis access that came out. He says he did not pull it out, but he woke up in the morning and it had come out and whether it was snagged or he did it in his sleep, he does not know. His mother says he pulled it out, but she did not witness anything. Mother also says he has been talking about hurting himself. The patient strongly denies this. The patient apparently has a history of bipolar disorder and was followed by [facility]. He has been on Xanax and Seroquel. For some reason, he has never taken a mood stabilizer and I talked to him about Depakote. MENTAL STATUS EXAMINATION: The patient is awake, alert and oriented to person, place, time and situation. His mood is euthymic. His affect appropriate. Thought processes are goal directed. Memory, concentration, and abstraction abilities are mildly impaired. He denies that he would seek to harm himself or others as well as overt psychotic symptoms. ASSESSMENT: Bipolar disorder by history. PLAN: At this time, the patient can be started back on his Seroquel and a low dose of Xanax. I will also start him on Depakote for its mood stabilizing properties. I think it would be important for him to see an outpatient psychiatrist. TRANSINT:[id number] Voice Confirmation ID: [id number] DOCUMENT ID: [id number] FAMILIA NIX MD at 1351 CC: [id number] DICTATION DATE: 12/10/17 1348 GRAIN SAMPLER: 12/10/17 2327 DIS IN 12/11/17 [place] [address]
--- NOTE | ~2017-12-08 | OP ---
PATIENT NAME: OLIVER TALAVERA MEDICAL RECORD: [id number] :83 LOCATION:D.M2 D.2140 ADMISSION DATE:12/08/17 SURGEON: SAE COKER MD DATE OF OPERATION: 12/08/2017 PREOPERATIVE DIAGNOSES: 1. End-stage renal disease. 2. Type 1 diabetes mellitus. 3. Bipolar disorder. POSTOPERATIVE DIAGNOSES: 1. End-stage renal disease. 2. Type 1 diabetes mellitus. 3. Bipolar disorder. PROCEDURE: 1. Right IJ 19 cm HemoSplit catheter placement. 2. Fluoroscopic interpretation. SURGEON: Sae Coker MD REPORT OF PROCEDURE: The patient's right neck and chest were prepped and draped in sterile fashion. Using ultrasound guidance, a needle was used to cannulate the right internal jugular vein and a guidewire was advanced. Fluoroscopy was used to note that the wire was in good position in the venous system. A skin incision was made on the right neck at the wire exit site and also on the right upper lateral chest. The catheter was tunneled between these 2 incision sites. The multiple dilators were placed over the wires followed by the dilator trocar device. The wire and the dilator were removed and the catheter tip was advanced through the trocar. Once in place, the trocar was pulled back until it rested at the right atrial superior vena caval junction. There was no sign of any kinking to the tubes. The catheter flushed easily with heparinized saline. The catheter was then sutured into place with interrupted 2-0 Prolenes and the skin incisions were closed with subcutaneous 5-0 Monocryl. COMPLICATIONS: None. CONDITION: Stable. ANESTHESIA: General endotracheal. BLOOD LOSS: 50 mL. TRANSINT:[id number] Voice Confirmation ID: [id number] DOCUMENT ID: [id number] SAE COKER MD at 1714 CC: [id number] DICTATION DATE: 12/08/171957 HEAD START COORDINATOR: 12/08/172023 DIS IN 12/11/17 [place] [id number] [place] [address]
[~2017-12-08 01:59] MED LIST changes: +ACETAMINOPHEN325 MG PO; +CATAPRES0.1 MG PO; +COREG25 MG PO; +COZAAR100 MG PO; +GLUCAGEN1 MG/VIAL IM; +HYDRALAZINE HCL25 MG PO; +LASIX80 MG PO; +NIFEDIPINE ER90 MG PO; +NITROSTAT0.4 MG SL; +OXYCODONE-APAP1 TAB PO; +PHOSLO667 MG PO; +PRINIVIL10 MG PO; +RENVELA800 MG PO; +TOUJEO SOL300 UNIT/1 SC; +VITAMIN D5000 UNIT PO; +XANAX2 MG PO; +ZESTRIL10 MG PO; +ZOFRAN4 MG PO
[2017-12-08 03:00] VITALS: BP 183/98
[2017-12-08 03:14] LABS: BASOPHILS 0.7 % (0-2); HEMATOCRIT 34.7 % (42.0-54.0); IMMATURE GRANULOCYTES 0.3 % (0-5); LYMPHOCYTES 26.5 % (15-50); MCH 28.3 pg (26.0-34.0); MCHC 31.7 g/dL (31.0-37.0); MCV 89.2 fL (80.0-100.0); MEAN PLATELET VOLUME 9.3 fL (7.4-10.4); NEUTROPHILS 63.5 % (40-80); PLATELET COUNT 337 10x3/uL (130-400); RBC 3.89 10x6/uL (4.20-6.10); RDW 15.9 % (11.5-14.5); WBC 8.9 10x3/uL (4.8-10.8)
[2017-12-08 03:28] LABS: INR 0.93 (0.85-1.17); PROTIME 12.1 SECONDS (11.6-15.0)
[2017-12-08 03:30] LABS: ALBUMIN 2.5 g/dL (3.4-5.0); CALCIUM 8.6 mg/dL (8.5-10.1); CARBON DIOXIDE 28.1 mmol/L (21.0-32.0); CREATININE - SERUM 3.4 mg/dL (0.6-1.3); MAGNESIUM - SERUM 2.1 mg/dL (1.8-2.4); POTASSIUM - SERUM 4.1 mmol/L (3.5-5.1); PROTEIN - SERUM 6.3 g/dL (6.4-8.2)
[2017-12-08 03:32] LABS: BILIRUBIN - TOTAL 0.08 mg/dL (0.2-1.3)
[2017-12-08 05:26] VITALS: BP 160/100
[2017-12-08 08:30] VITALS: BP 177/91
[2017-12-08 16:06] VITALS: BP 191/107
[2017-12-08 17:06] VITALS: BP 177/91; Ht 172.7 cm; Wt 58.9 kg
[2017-12-09 04:59] VITALS: BP 191/97
[2017-12-09 10:01] VITALS: BP 197/91
[2017-12-09 16:00] VITALS: BP 103/56
[2017-12-09 21:10] VITALS: BP 168/84
[2017-12-10 05:13] VITALS: BP 120/70
[2017-12-10 20:00] VITALS: BP 113/77
[2017-12-11] VITALS: BP 148/76
[2017-12-11 08:38] VITALS: BP 156/84
[2017-12-11] MEDS ORDERED: DEPAKOTE250 MG PO (09:13)
[2017-12-11] MEDS ORDERED: SEROQUEL25 MG PO (09:14)
[2017-12-11] MEDS ORDERED: KEFLEX250 MG PO (09:14)
[2017-12-11] MEDS ORDERED: XANAX0.25 MG PO (09:15)
== END 2017-12-11 11:53 | DRG 314 ==
LOC: D.ER 01:59 → D.M2 04:32
PROVIDERS: Emergency Medicine; Surgery
PROC: 02HV33Z Insertion of Infusion Device into Superior Vena Cava, Percutaneous Approach (ICD-10-PCS; 2017-12-08)
PROC: B5181ZA Fluoroscopy of Superior Vena Cava using Low Osmolar Contrast, Guidance (ICD-10-PCS; 2017-12-08)
PROC: 0JH63XZ Insertion of Tunneled Vascular Access Device into Chest Subcutaneous Tissue and Fascia, Percutaneous Approach (ICD-10-PCS; principal; 2017-12-08 12:30)
PROC: 5A1D70Z Performance of Urinary Filtration, Intermittent, Less than 6 Hours Per Day (ICD-10-PCS; 2017-12-09)
DX: T82.42XA Displacement of vascular dialysis catheter, initial encounter (principal); N18.6 End stage renal disease; I12.0 Hypertensive chronic kidney disease with stage 5 chronic kidney disease or end stage renal disease; Y83.8 Other surgical procedures as the cause of abnormal reaction of the patient, or of later complication, without mention of misadventure at the time of the procedure; E10.22 Type 1 diabetes mellitus with diabetic chronic kidney disease; F31.9 Bipolar disorder, unspecified; E10.21 Type 1 diabetes mellitus with diabetic nephropathy; D64.9 Anemia, unspecified

== ENCOUNTER 2017-12-14 23:09 | Emergency (ER) | payer MEDICAID ==
[~2017-12-14] VITALS: Ht 172.7 cm; Wt 59.1 kg
[~2017-12-14 23:09] MED LIST changes: +DEPAKOTE250 MG PO; +KEFLEX250 MG PO; +SEROQUEL25 MG PO; +XANAX0.25 MG PO
[2017-12-14 23:12] VITALS: Ht 172.7 cm; Wt 59.1 kg
[2017-12-14 23:51] LABS: BASOPHILS 0.6 % (0-2); EOSINOPHILS 4.6 % (0-7); HEMATOCRIT 31.7 % (42.0-54.0); HEMOGLOBIN 9.9 g/dL (13.5-17.5); IMMATURE GRANULOCYTES 0.3 % (0-5); LYMPHOCYTES 32.7 % (15-50); MCH 28.1 pg (26.0-34.0); MCHC 31.2 g/dL (31.0-37.0); MCV 90.1 fL (80.0-100.0); MEAN PLATELET VOLUME 8.7 fL (7.4-10.4); MONOCYTES 13.3 % (2-11); NEUTROPHILS 48.5 % (40-80); PLATELET COUNT 322 10x3/uL (130-400); RBC 3.52 10x6/uL (4.20-6.10); RDW 16.7 % (11.5-14.5); WBC 7.1 10x3/uL (4.8-10.8)
[2017-12-15 00:03] LABS: INR 0.99 (0.85-1.17); PROTIME 12.7 SECONDS (11.6-15.0)
[2017-12-15 00:04] LABS: APTT 31.8 SECONDS (22.8-39.4)
[2017-12-15 00:05] LABS: D-DIMER-QUANTITATIVE 1.1 ug/mLFEU (0.20-0.54)
[2017-12-15 00:10] LABS: ALBUMIN 2.5 g/dL (3.4-5.0); ANION GAP 3.4 mmol/L (8-16); BILIRUBIN - TOTAL 0.14 mg/dL (0.2-1.3); CALCIUM 7.9 mg/dL (8.5-10.1); CREATININE - SERUM 3.3 mg/dL (0.6-1.3); POTASSIUM - SERUM 4.4 mmol/L (3.5-5.1); PROTEIN - SERUM 6.5 g/dL (6.4-8.2)
[2017-12-15 04:06] VITALS: BP 172/104
== END 2017-12-15 04:14 | disposition other institution (70) ==
LOC: D.ER 23:09
PROVIDERS: Family Medicine
DX: T82.848A Pain due to vascular prosthetic devices, implants and grafts, initial encounter (principal); L03.114 Cellulitis of left upper limb; E11.40 Type 2 diabetes mellitus with diabetic neuropathy, unspecified; I12.9 Hypertensive chronic kidney disease with stage 1 through stage 4 chronic kidney disease, or unspecified chronic kidney disease; N18.9 Chronic kidney disease, unspecified; F17.200 Nicotine dependence, unspecified, uncomplicated; Z99.2 Dependence on renal dialysis

== ENCOUNTER 2018-02-28 18:21 | Inpatient (IN) | payer MEDICAID ==
[~2018-02-28] VITALS: Ht 172.7 cm; Wt 60.6 kg
--- NOTE | ~2018-02-28 | MORECARE ---
CASE MANAGEMENT DISCHARGE SUMMARY PATIENT: OLIVER TALAVERA UNIT: [id number] ADM DATE: 02/28/18 AGE: 33 : 84 SEX: M ROOM/BED: D.2304 AUTHOR: CLAU SHARMA PHYSICIAN: REFERRING PHYSICIAN: VINCENT HAMMER MD DATE OF SERVICE: 03/01/18 Discharge Plan Patient Name: OLIVER TALAVERA Facility: [facility]:[place] : 1985 Planned Disposition: Long Term Facility Anticipated Discharge Date: Discharge Date: Expected LOS: Initial Reviewer: [email or web address] Initial Review Date: 03/01/2018 Generated: 03/01/18 3:16 pm Patient Name: OLIVER TALAVERA Page 68898 at 1416 All edits/amendments must be made on the electronic document DICTATION DATE: 03/01/18 141 BURGLAR ALARM ASSEMBLER: RENETTA 03/01/18 1415 RPT#: [id number] DC DATE: STATUS: ADM IN [facility] [address] [place] [address] END OF REPORT
--- NOTE | ~2018-02-28 | MORECARE ---
CASE MANAGEMENT DISCHARGE SUMMARY PATIENT: OLIVER TALAVERA UNIT: [id number] ADM DATE: 02/28/18 AGE: 33 : 84 SEX: M ROOM/BED: D.2308 AUTHOR: EDITH,DOC PHYSICIAN: REFERRING PHYSICIAN: VINCENT HAMMER MD DATE OF SERVICE: 03/04/18 Discharge Plan Patient Name: OLIVER TALAVERA Facility: [facility]:[place] : 1985 Planned Disposition: Fpc Facility Anticipated Discharge Date: 03/04/18 Discharge Date: Expected LOS: 4 Initial Reviewer: [email or web address] Initial Review Date: 03/01/2018 Generated: 03/04/18 2:01 pm Comments DCP- Discharge Planning Updated by [email or web address]: Taylor Reyes on 03/01/18 1:[address] Patient Name: OLIVER TALAVERA Admission Status: ER Accout number: [id number] Admission Date: 02-28-2018 : 1985 Admission Diagnosis: Attending: VINCENT HAMMER Current LOS: 1 Anticipated DC Date: Planned Disposition: Fpc Facility Primary Insurance: MEDICAID [place] Discharge Planning Comments: CM met with patient at bedside while he was receiving dialysis. Patient is living at [facility] prior to admission. Patient states that he doesn't want to return there but he has no choice. His mother has guardianship and makes his medical decisions. His mother Genny Hinkle arrived while interviewing patient and she states he will return to [facility] upon discharge. Patient has dialysis TTHS @ [facility]. CM will continue to follow and assist as needed with discharge planning / needs. Ibm Mainframe Developer: Taylor Reyes DCPIA - Discharge Planning Initial Assessment Updated by [email or web address]: Taylor Reyes on 03/01/18 2:20 pm * Is the patient Alert and Oriented? Yes * How many steps to enter\exit or inside your home? * PCP no PCP * Pharmacy [facility] * Preadmission Environment Efficiency [employer]er Longterm * Facility Name [facility] * ADLs Partial Dependent * Partial ADLs (Assistance needed) Ambulation Bathing Dressing Eating Medication Management Toileting Transfers * Equipment Wheelchair * List name and contact numbers for known caregivers / representatives who currently or will assist patient after discharge: Isra Hinkle stepfather [phone] * Verbal permission to speak to the caregivers and representatives has been obtained from the patient. Yes * Additional services required to return to the preadmission environment? No * Can the patient safely return to the preadmission environment? Yes * Has this patient been hospitalized within the prior 30 days at any hospital? No Last DP export: 03/01/18 1:45 Patient Name: OLIVER TALAVERA Page [id number] at 1301 All edits/amendments must be made on the electronic document DICTATION DATE: 03/04/18 1301 NON PROFIT JOB TITLES: RENETTA 03/04/18 1301 RPT#: [id number] DC DATE: STATUS: ADM IN [facility] [address] [place] [address] END OF REPORT
--- NOTE | ~2018-02-28 | MORECARE ---
CASE MANAGEMENT DISCHARGE SUMMARY PATIENT: OLIVER TALAVERA UNIT: [id number] ADM DATE: 02/28/18 AGE: 33 : 84 SEX: M ROOM/BED: D.2308 AUTHOR: CLAU SHARMA PHYSICIAN: REFERRING PHYSICIAN: VINCENT HAMMER MD DATE OF SERVICE: 03/05/18 Discharge Plan Patient Name: OLIVER TALAVERA Facility: [facility]:[place] : 1985 Planned Disposition: Intermediate Facility Anticipated Discharge Date: 03/04/18 Discharge Date: 03/04/2018 Expected LOS: 4 Initial Reviewer: [email or web address] Initial Review Date: 03/01/2018 Generated: 03/05/18 10:04 am Comments DCP- Discharge Planning Updated by [email or web address]: Adenike Madera on 03/04/18 12:[address] LATE ENTRY 6189- 4332 PATIENT FOR DISCHARGE BACK TO [facility]. PATIENT'S MOTHER AND FATHER HAD QUESTIONS REGARDING DISCHARGE DID THE FACILITY. PRAFUL, RENAL PIGSKIN TRIMMER, SPOKE WITH THE PARENTS AND ANSWERED THEIR QUESTIONS. CM SPOKE W/ NURSE AT FACILITY AND PRAFUL ALSO SPOKE WITH HER. SHE ANSWERED HER QUESTIONS. CM FAXED DISCHARGE SUMMARY AND LABS TO FACILITY. THE NURSE WILL CALL [facility] TO ARRANGE TRANSPORTATION AND WILL ADVISE THE ICU STAFF OF TIME TO LIFT SLAB OPERATOR THE PATIENT. DCP- Discharge Planning Updated by [id number]: Taylor Reyes on 03/01/18 1:[address] Patient Name: OLIVER TALAVERA Admission Status: ER Accout number: [id number] Admission Date: 02-28-2018 : 1985 Admission Diagnosis: Attending: VINCENT HAMMER Current LOS: 1 Anticipated DC Date: Planned Disposition: Intermediate Facility Primary Insurance: MEDICAID [place] Discharge Planning Comments: CM met with patient at bedside while he was receiving dialysis. Patient is living at [facility] prior to admission. Patient states that he doesn't want to return there but he has no choice. His mother has guardianship and makes his medical decisions. His mother Genny Hinkle arrived while interviewing patient and she states he will return to [facility] upon discharge. Patient has dialysis TTHS @ [facility]. CM will continue to follow and assist as needed with discharge planning / needs. Clam Sorter: Taylor Reyes DCPIA - Discharge Planning Initial Assessment Updated by [email or web address]: Taylor Reyes on 03/01/18 2:20 pm * Is the patient Alert and Oriented? Yes * How many steps to enter\exit or inside your home? * PCP no PCP * Pharmacy [facility] * Preadmission Environment [facility] * Facility Name [facility] * ADLs Partial Dependent * Partial ADLs (Assistance needed) Ambulation Bathing Dressing Eating Medication Management Toileting Transfers * Equipment Wheelchair * List name and contact numbers for known caregivers / representatives who currently or will assist patient after discharge: Isra cox [phone] * Verbal permission to speak to the caregivers and representatives has been obtained from the patient. Yes * Additional services required to return to the preadmission environment? No * Can the patient safely return to the preadmission environment? Yes * Has this patient been hospitalized within the prior 30 days at any hospital? No Last DP export: 03/04/18 12:08 Patient Name: OLIVER TALAVERA Page 92170 at 0904 All edits/amendments must be made on the electronic document DICTATION DATE: 03/05/18902 PREPARATION PLANT SUPERVISOR: RENETTA 03/05/18902 RPT#: [id number] DC DATE:03/04/18 STATUS: DIS IN [facility] [address] [facility] [place] [address] END OF REPORT
--- NOTE | ~2018-02-28 | MORECARE ---
CASE MANAGEMENT DISCHARGE SUMMARY PATIENT: OLIVER TALAVERA UNIT: [id number] ADM DATE: 02/28/18 AGE: 33 : 84 SEX: M ROOM/BED: D.2304 AUTHOR: CLAU SHARMA PHYSICIAN: REFERRING PHYSICIAN: VINCENT HAMMER MD DATE OF SERVICE: 03/01/18 Discharge Plan Patient Name: OLIVER TALAVERA [facility] [facility] 1985 Planned Disposition: Chcf Facility Anticipated Discharge Date: Discharge Date: Expected LOS: Initial Reviewer: [email or web address] Initial Review Date: 03/01/2018 Generated: 03/01/18 3:26 pm DCPIA - Discharge Planning Initial Assessment Updated by [email or web address]: Taylor Reyes on 03/01/18 2:20 pm * Is the patient Alert and Oriented? Yes * How many steps to enter\exit or inside your home? * PCP no PCP * Pharmacy [facility] * Preadmission Environment Steam Heating Installer Usp * [facility] * ADLs Partial Dependent * Partial ADLs (Assistance needed) Ambulation Bathing Dressing Eating Medication Management Toileting Transfers * Equipment Wheelchair * List name and contact numbers for known caregivers / representatives who currently or will assist patient after discharge: Isra Rooneyadrianalyssa tomther [phone] * Verbal permission to speak to the caregivers and representatives has been obtained from the patient. Yes * Additional services required to return to the preadmission environment? No * Can the patient safely return to the preadmission environment? Yes * Has this patient been hospitalized within the prior 30 days at any hospital? No Last DP export: 03/01/18 1:16 Patient Name: OLIVER TALAVERA Page [phone] at 1426 All edits/amendments must be made on the electronic document DICTATION DATE: 03/01/181425 CUSTOMS HOUSE BROKER: RENETTA 03/01/18 1426 RPT#: [id number] DC DATE: STATUS: ADM IN [facility] [address] [place] [address] END OF REPORT
--- NOTE | ~2018-02-28 | MORECARE ---
CASE MANAGEMENT DISCHARGE SUMMARY PATIENT: OLIVER TALAVERA UNIT: [id number] ADM DATE: 02/28/18 AGE: 33 : 84 SEX: M ROOM/BED: D.2308 AUTHOR: EDITH,DOC PHYSICIAN: REFERRING PHYSICIAN: VINCENT HAMMER MD DATE OF SERVICE: 03/07/18 Discharge Plan Patient Name: OLIVER TALAVERA Facility: [facility]:[place] : 1985 Planned Disposition: Mcc Facility Anticipated Discharge Date: 03/04/18 Discharge Date: 03/04/2018 Expected LOS: 4 Initial Reviewer: [email or web address] Initial Review Date: 03/01/2018 Generated: 03/07/18 4:50 pm Comments DCP- Discharge Planning Updated by [email or web address]: Nina Argueta on 03/07/18 2:[address] Per coders request, CM called [facility] and verified that patient was admitted to a Medicaid (intermodal dispatcher care) bed. DCP- Discharge Planning Updated by [email or web address]: Adenike Madera on 03/04/18 12:[address] LATE ENTRY 0101- 7391 PATIENT FOR DISCHARGE BACK TO [facility]. PATIENT'S MOTHER AND FATHER HAD QUESTIONS REGARDING DISCHARGE DID THE FACILITY. PRAFUL, RENAL OENOLOGIST, SPOKE WITH THE PARENTS AND ANSWERED THEIR QUESTIONS. CM SPOKE W/ NURSE AT FACILITY AND PRAFUL ALSO SPOKE WITH HER. SHE ANSWERED HER QUESTIONS. CM FAXED DISCHARGE SUMMARY AND LABS TO FACILITY. THE NURSE WILL CALL [facility] TO ARRANGE TRANSPORTATION AND WILL ADVISE THE ICU STAFF OF TIME TO VAULT PERSON THE PATIENT. DCP- Discharge Planning Updated by [email or web address]: Taylor Reyes on 03/01/18 1:[address] Patient Name: OLIVER TALAVERA Admission Status: ER Accout number: [id number] Admission Date: 02-28-2018 : 1985 Admission Diagnosis: Attending: VINCENT HAMMER Current LOS: 1 Anticipated DC Date: Planned Disposition: Mcc Facility Primary Insurance: MEDICAID [place] Discharge Planning Comments: CM met with patient at bedside while he was receiving dialysis. Patient is living at [facility] prior to admission. Patient states that he doesn't want to return there but he has no choice. His mother has guardianship and makes his medical decisions. His mother Genny Hinkle arrived while interviewing patient and she states he will return to [facility] upon discharge. Patient has dialysis TTHS @ [facility]. CM will continue to follow and assist as needed with discharge planning / needs. Equipment Tester: Talyor Reyes DCPIA - Discharge Planning Initial Assessment Updated by [email or web address]: Taylor Reyes on 03/01/18 2:20 pm * Is the patient Alert and Oriented? Yes * How many steps to enter\exit or inside your home? * PCP no PCP * Pharmacy [facility] * Preadmission Environment Almond Cutting Machine Tender [employer] * Facility Name [facility] * ADLs Partial Dependent * Partial ADLs (Assistance needed) Ambulation Bathing Dressing Eating Medication Management Toileting Transfers * Equipment Wheelchair * List name and contact numbers for known caregivers / representatives who currently or will assist patient after discharge: Isra Hinkle stepfather [phone] * Verbal permission to speak to the caregivers and representatives has been obtained from the patient. Yes * Additional services required to return to the preadmission environment? No * Can the patient safely return to the preadmission environment? Yes * Has this patient been hospitalized within the prior 30 days at any hospital? No Last DP export: 03/05/18 8:04 Patient Name: OLIVER TALAVERA Page 26052 at 1551 All edits/amendments must be made on the electronic document DICTATION DATE: 03/07/181549 ELECTRIC MILKERS INSTALLER: RENETTA 03/07/181549 RPT#: [id number] DC DATE:03/04/18 STATUS: DIS IN [facility] [address] [place] [address] END OF REPORT
--- NOTE | ~2018-02-28 | MORECARE ---
CASE MANAGEMENT DISCHARGE SUMMARY PATIENT: OLIVER TALAVERA UNIT: [id number] ADM DATE: 02/28/18 AGE: 33 : 84 SEX: M ROOM/BED: D.2304 AUTHOR: EDITH,DOC PHYSICIAN: REFERRING PHYSICIAN: VINCENT HAMMER MD DATE OF SERVICE: 03/01/18 Discharge Plan Patient Name: OLIVER TALAVERA Facility: [facility]:[place] : 1985 Planned Disposition: Snf Facility Anticipated Discharge Date: Discharge Date: Expected LOS: Initial Reviewer: [email or web address] Initial Review Date: 03/01/2018 Generated: 03/01/18 3:45 pm Comments DCP- Discharge Planning Updated by [email or web address]: Taylor Reyes on 03/01/18 1:[address] Patient Name: OLIVER TALAVERA Admission Status: ER Accout number: [id number] Admission Date: 02-28-2018 : 1985 Admission Diagnosis: Attending: VINCENT HAMMER Current LOS: 1 Anticipated DC Date: Planned Disposition: Snf Facility Primary Insurance: MEDICAID [place] Discharge Planning Comments: CM met with patient at bedside while he was receiving dialysis. Patient is living at [facility] prior to admission. Patient states that he doesn't want to return there but he has no choice. His mother has guardianship and makes his medical decisions. His mother Genny Hinkle arrived while interviewing patient and she states he will return to [facility] upon discharge. Patient has dialysis TTHS @ [facility]. CM will continue to follow and assist as needed with discharge planning / needs. Radio Performer: Taylor Reyes DCPIA - Discharge Planning Initial Assessment Updated by [email or web address]: Taylor Reyes on 03/01/18 2:20 pm * Is the patient Alert and Oriented? Yes * How many steps to enter\exit or inside your home? * PCP no PCP * Pharmacy [facility] * Preadmission Environment Regional Loss Prevention Manager Alf * Facility Name [facility] * ADLs Partial Dependent * Partial ADLs (Assistance needed) Ambulation Bathing Dressing Eating Medication Management Toileting Transfers * Equipment Wheelchair * List name and contact numbers for known caregivers / representatives who currently or will assist patient after discharge: Isra cox [phone] * Verbal permission to speak to the caregivers and representatives has been obtained from the patient. Yes * Additional services required to return to the preadmission environment? No * Can the patient safely return to the preadmission environment? Yes * Has this patient been hospitalized within the prior 30 days at any hospital? No Last DP export: 03/01/18 1:26 Patient Name: OLIVER TALAVERA Page 31074 at 1445 All edits/amendments must be made on the electronic document DICTATION DATE: 03/01/181444 DISABILITIES CAREGIVER: RENETTA 03/01/181444 RPT#: [id number] DC DATE: STATUS: ADM IN [facility] [address] [place] [address] END OF REPORT
--- NOTE | ~2018-02-28 | MORECARE ---
CASE MANAGEMENT DISCHARGE SUMMARY PATIENT: OLIVER TALAVERA UNIT: [id number] ADM DATE: 02/28/18 AGE: 33 : [birth year] SEX: M ROOM/BED: D.2308 AUTHOR: EDITH,DOC PHYSICIAN: REFERRING PHYSICIAN: VINCENT HAMMER MD DATE OF SERVICE: 03/04/18 Discharge Plan Patient Name: OLIVER TALAVERA Facility: [facility]:[place] : 1985 Planned Disposition: Assisted Facility Anticipated Discharge Date: 03/04/18 Discharge Date: Expected LOS: 4 Initial Reviewer: [email or web address] Initial Review Date: 03/01/2018 Generated: 03/04/18 2:08 pm Comments DCP- Discharge Planning Updated by [email or web address]: Adenike Madera on 03/04/18 12:[address] LATE ENTRY 4691- 1069 PATIENT FOR DISCHARGE BACK TO [facility]. PATIENT'S MOTHER AND FATHER HAD QUESTIONS REGARDING DISCHARGE DID THE FACILITY. PRAFUL RENAL WAGON WASHER, SPOKE WITH THE PARENTS AND ANSWERED THEIR QUESTIONS. BLAINE SPOKE W/ NURSE AT FACILITY AND PRAFUL ALSO SPOKE WITH HER. SHE ANSWERED HER QUESTIONS. CM FAXED DISCHARGE SUMMARY AND LABS TO FACILITY. THE NURSE WILL CALL [facility] TO ARRANGE TRANSPORTATION AND WILL ADVISE THE ICU STAFF OF TIME TO SETTLEMENT TECHNICIAN THE PATIENT. DCP- Discharge Planning Updated by [id number]: Taylor Reyes on 03/01/18 1:[address] Patient Name: OLIVER TALAVERA Admission Status: ER Accout number: [id number] Admission Date: 02-28-2018 : 1985 Admission Diagnosis: Attending: VINCENT HAMMER Current LOS: 1 Anticipated DC Date: Planned Disposition: Assisted Facility Primary Insurance: MEDICAID [place] Discharge Planning Comments: CM met with patient at bedside while he was receiving dialysis. Patient is living at [facility] prior to admission. Patient states that he doesn't want to return there but he has no choice. His mother has guardianship and makes his medical decisions. His mother Genny Hinkle arrived while interviewing patient and she states he will return to [facility] upon discharge. Patient has dialysis TT @ [facility]. CM will continue to follow and assist as needed with discharge planning / needs. Electronic Gluer: Taylor Reyes DCPIA - Discharge Planning Initial Assessment Updated by [id number]: Taylor Reyes on 03/01/18 2:20 pm * Is the patient Alert and Oriented? Yes * How many steps to enter\exit or inside your home? * PCP no PCP * Pharmacy [facility] * Preadmission Environment [facility] * [facility] * ADLs Partial Dependent * Partial ADLs (Assistance needed) Ambulation Bathing Dressing Eating Medication Management Toileting Transfers * Equipment Wheelchair * List name and contact numbers for known caregivers / representatives who currently or will assist patient after discharge: Isra cox [phone] * Verbal permission to speak to the caregivers and representatives has been obtained from the patient. Yes * Additional services required to return to the preadmission environment? No * Can the patient safely return to the preadmission environment? Yes * Has this patient been hospitalized within the prior 30 days at any hospital? No Last DP export: 03/04/18 12:01 Patient Name: OLIVER TALAVERA Page [phone] at 1308 All edits/amendments must be made on the electronic document DICTATION DATE: 03/04/18 1308 BURGLAR ALARM MECHANIC: RENETTA 03/04/18 1308 RPT#: [id number] DC DATE: STATUS: ADM IN [facility] [address] [place] [address] END OF REPORT
[2018-02-28 19:19] LABS: APPEARANCE CLEAR (CLEAR); COLOR YELLOW (YELLOW); GLUCOSE 1000 mg/dL (NEGATIVE); NITRITE NEGATIVE (NEGATIVE); PROTEIN TRACE mg/dL (NEGATIVE); SPECIFIC GRAVITY 1.015 (1.005-1.020)
[2018-02-28 19:20] LABS: BILIRUBIN NEGATIVE (NEGATIVE); KETONE NEGATIVE (NEGATIVE); UROBILINOGEN NORMAL (NORMAL)
[2018-02-28 19:21] LABS: BACTERIA FEW /hpf (NONE SEEN); RED CELLS - URINE 0-5 /hpf (0-5); WHITE CELLS - URINE 0-5 /hpf (0-5)
[2018-02-28 19:30] LABS: BASOPHILS 0.4 % (0-2); EOSINOPHILS 2.6 % (0-7); HEMATOCRIT 32.7 % (42.0-54.0); HEMOGLOBIN 10.6 g/dL (13.5-17.5); IMMATURE GRANULOCYTES 0.4 % (0-5); LYMPHOCYTES 16.9 % (15-50); MCHC 32.4 g/dL (31.0-37.0); MCV 95.6 fL (80.0-100.0); MEAN PLATELET VOLUME 9.3 fL (7.4-10.4); MONOCYTES 11.5 % (2-11); NEUTROPHILS 68.2 % (40-80); PLATELET COUNT 354 10x3/uL (130-400); RBC 3.42 10x6/uL (4.20-6.10); RDW 16.1 % (11.5-14.5); WBC 7.3 10x3/uL (4.8-10.8)
[2018-02-28 19:49] LABS: ALBUMIN 3.2 g/dL (3.4-5.0); ANION GAP 28.5 mmol/L (8-16); BILIRUBIN - TOTAL 0.24 mg/dL (0.2-1.3); CALCIUM 8.7 mg/dL (8.5-10.1); CARBON DIOXIDE 10.1 mmol/L (21.0-32.0); PROTEIN - SERUM 7.8 g/dL (6.4-8.2)
[2018-02-28 19:54] LABS: POTASSIUM - SERUM 7.6 mmol/L (3.5-5.1)
[2018-02-28 23:00] VITALS: BP 197/111; BP 202/118; BMI 20.7
[2018-03-01] VITALS (14 sets, daily range): BP systolic 114–185; BP diastolic 71–120; Ht 172.7 cm; Wt 60.6 kg
[2018-03-01 04:34] LABS: BASOPHILS 0.5 % (0-2); EOSINOPHILS 3.6 % (0-7); HEMATOCRIT 32.1 % (42.0-54.0); HEMOGLOBIN 10.9 g/dL (13.5-17.5); IMMATURE GRANULOCYTES 0.3 % (0-5); LYMPHOCYTES 23.4 % (15-50); MCH 31.3 pg (26.0-34.0); MEAN PLATELET VOLUME 9.3 fL (7.4-10.4); MONOCYTES 15.7 % (2-11); NEUTROPHILS 56.5 % (40-80); PLATELET COUNT 373 10x3/uL (130-400); RBC 3.48 10x6/uL (4.20-6.10); RDW 15.8 % (11.5-14.5); WBC 6.2 10x3/uL (4.8-10.8)
[2018-03-01 04:41] LABS: MCV 92.2 fL (80.0-100.0)
[2018-03-01 05:41] LABS: CALCIUM 9.3 mg/dL (8.5-10.1); PHOSPHOROUS 6.9 mg/dL (2.5-4.9)
[2018-03-01 05:46] LABS: CREATININE - SERUM 5.4 mg/dL (0.6-1.3)
[2018-03-01 05:47] LABS: ANION GAP 22.4 mmol/L (8-16); CARBON DIOXIDE 21.5 mmol/L (21.0-32.0); POTASSIUM - SERUM 2.9 mmol/L (3.5-5.1)
[2018-03-02 00:07] VITALS: BP 141/79
[2018-03-02 04:50] VITALS: BP 129/85
[2018-03-02 06:30] LABS: BASOPHILS 0.6 % (0-2); EOSINOPHILS 3.2 % (0-7); HEMATOCRIT 30.5 % (42.0-54.0); HEMOGLOBIN 10.1 g/dL (13.5-17.5); LYMPHOCYTES 27.6 % (15-50); MCH 31.5 pg (26.0-34.0); MCHC 33.1 g/dL (31.0-37.0); MEAN PLATELET VOLUME 9.6 fL (7.4-10.4); MONOCYTES 11.4 % (2-11); NEUTROPHILS 57.2 % (40-80); PLATELET COUNT 334 10x3/uL (130-400); RBC 3.21 10x6/uL (4.20-6.10); RDW 16.1 % (11.5-14.5); WBC 6.5 10x3/uL (4.8-10.8)
[2018-03-02 06:49] LABS: ANION GAP 19.8 mmol/L (8-16); CALCIUM 7.9 mg/dL (8.5-10.1); CARBON DIOXIDE 22.1 mmol/L (21.0-32.0)
[2018-03-02 06:56] LABS: PHOSPHOROUS 9.7 mg/dL (2.5-4.9); POTASSIUM - SERUM 3.9 mmol/L (3.5-5.1)
[2018-03-02 09:03] VITALS: BP 166/87
[2018-03-02 12:12] VITALS: BP 144/87
[2018-03-02 17:00] VITALS: BP 115/52
[2018-03-02 18:00] VITALS: BP 157/90
[2018-03-02 18:56] LABS: ANION GAP 24.6 mmol/L (8-16); CALCIUM 7.9 mg/dL (8.5-10.1); CARBON DIOXIDE 19.3 mmol/L (21.0-32.0); CREATININE - SERUM 7.2 mg/dL (0.6-1.3); MAGNESIUM - SERUM 2.7 mg/dL (1.8-2.4)
[2018-03-02 19:00] LABS: PHOSPHOROUS 10.7 mg/dL (2.5-4.9)
[2018-03-02 19:01] LABS: POTASSIUM - SERUM 4.9 mmol/L (3.5-5.1)
[2018-03-03] VITALS (15 sets, daily range): BP systolic 128–188; BP diastolic 83–101
[2018-03-04 01:00] VITALS: BP 157/95
[2018-03-04 03:00] VITALS: BP 129/88
[2018-03-04 05:00] VITALS: BP 168/92
[2018-03-04 07:00] VITALS: BP 197/125
[2018-03-04] MEDS ORDERED: Lantus Solostar PEN SC (09:00)
[2018-03-04 10:00] VITALS: BP 166/108
[2018-03-04] MEDS ORDERED: HUMALOG 30100 UNITS/ SC (10:25)
== END 2018-03-04 14:25 | DRG 640 ==
LOC: D.ER 18:21 → D.ICU 20:52 → D.EDHOLD 20:52 → D.M2 20:52 → D.ICU 20:52 → D.M2 03-01 17:39 → D.ICU 03-02 16:54
PROVIDERS: Family Medicine; Internal Medicine Nephrology
PROC: 5A1D70Z Performance of Urinary Filtration, Intermittent, Less than 6 Hours Per Day (ICD-10-PCS; principal; 2018-03-01)
DX: E87.5 Hyperkalemia (principal); N18.6 End stage renal disease; I12.0 Hypertensive chronic kidney disease with stage 5 chronic kidney disease or end stage renal disease; E10.22 Type 1 diabetes mellitus with diabetic chronic kidney disease; D63.1 Anemia in chronic kidney disease; Z99.2 Dependence on renal dialysis; Z91.15 Patient's noncompliance with renal dialysis

== ENCOUNTER → 2018-06-15 19:41 | Outpatient (CLI) | payer MEDICAID ==
[2018-03-01 09:53] VITALS: BMI 20.3
[~2018-06-15 19:41] MED LIST changes: +Lantus Solostar PEN SC
== END | disposition home or self-care (01) ==
LOC: D.LABREF 19:41
PROVIDERS: ATTEND Legal Medicine
DX: Z51.81 Encounter for therapeutic drug level monitoring (principal); Z79.899 Other long term (current) drug therapy

== ENCOUNTER 2018-06-16 00:24 | Inpatient (IN) | payer MEDICAID ==
[~2018-06-16] VITALS: Ht 172.7 cm; Wt 59.0 kg
[2018-06-16] VITALS (7 sets, daily range): BP systolic 136–161; BP diastolic 70–96
--- NOTE | 2018-06-16 01:00 | NUR ---
UPON ARRIVAL PATIENT CURSING AND UNCOOPERATIVE, MD TO BEDSIDE, PT DID SETTLE DOWN, HIS STEP FATHER ALSO AT BEDSIDE. IV ESTABLISHED, MEDICATIONS GIVEN PER ORDER.
[2018-06-16 01:23] LABS: BASOPHILS 0.3 % (0-2); EOSINOPHILS 0.4 % (0-7); HEMATOCRIT 39.4 % (42.0-54.0); IMMATURE GRANULOCYTES 0.1 % (0-5); LYMPHOCYTES 8.8 % (15-50); MCH 33.2 pg (26.0-34.0); MCV 100.5 fL (80.0-100.0); MEAN PLATELET VOLUME 10.1 fL (7.4-10.4); MONOCYTES 5.8 % (2-11); NEUTROPHILS 84.6 % (40-80); RBC 3.92 10x6/uL (4.20-6.10); RDW 16.5 % (11.5-14.5)
[2018-06-16 01:24] LABS: PLATELET COUNT 235 10x3/uL (130-400)
[2018-06-16 01:42] LABS: ALBUMIN 3.4 g/dL (3.4-5.0); ALKALINE PHOSPHATASE 152 U/L (46-116); ALT (SGPT) 78 U/L (10-68); AMYLASE - SERUM 66 U/L (25-115); BILIRUBIN - TOTAL 0.47 mg/dL (0.2-1.3); CALCIUM 8.5 mg/dL (8.5-10.1); CARBON DIOXIDE 15.1 mmol/L (21.0-32.0); CHLORIDE - SERUM 99 mmol/L (98-107); CREATININE - SERUM 6.4 mg/dL (0.6-1.3); LIPASE 131 U/L (73-393); POTASSIUM - SERUM 5.6 mmol/L (3.5-5.1); SODIUM 135 mmol/L (136-145); UREA NITROGEN 70 mg/dL (7-18); eGFR NON AFRICAN AMERICAN 11 mL/min (90-120)
[2018-06-16 01:45] LABS: CALC OSMOLALITY 315 mosm/kg (275-300); GLUCOSE 551 mg/dL (74-106); TROPONIN-I < 0.017 ng/mL (0.000-0.060)
--- NOTE | 2018-06-16 02:30 | NUR ---
PT STATES HE FEELS BETTER, PAIN IS DOWN TO 6/10, DENIES NAUSEA AT THIS TIME.
--- NOTE | 2018-06-16 04:43 | NUR ---
PT ARRIVED TO FLOOR BY BED, ANSWERS QUESTIONS APPROPRIATELY. INTRODUCED SELF TO PT. PT DENIES FURTHER NEEDS AT THIS TIME. CALL LIGHT IN REACH. WILL CTM.
--- NOTE | 2018-06-16 05:05 | NUR ---
PT STATES HE HAS LIVED AT [facility] FOR THE PAST 9 MONTHS, PT ALSO STATES HE HAS DEPAKOTE PRESCRIBED BY DR HAMMER BUT HE STATES IT CAUSES HIM TO FEEL WEIRD, THEREFORE HE DOES NOT TAKE IT.
--- NOTE | 2018-06-16 09:39 | NUR ---
ASSESSMENT DONE. DENIES NEEDS.
--- NOTE | 2018-06-16 14:08 | NUR ---
I have reviewed this patient and I concur with the Shift Assessment completed by the Licensed Practical Nurse today this shift.
--- NOTE | 2018-06-16 17:03 | NUR ---
WITHOUT CHANGES OR DISTRESS NOTED AT THIS TIME. DENIES NEEDS.
--- NOTE | 2018-06-16 19:56 | NUR ---
EVENING ROUNDS COMPLETED. REPORT RECEIVED. PT CURRENTLY AMBULATING TO BED FROM TOILET, RR EVEN AND UNLABORED. NO S/S OF DISTRESS NOTED. INTRODUCED SELF TO PT. PT DENIES FURTHER NEEDS AT THIS TIME. SPOKE TO PT MOTHER WHO HAS LEGAL GUARDIANSHIP OVER PT AND SHE REQUESTED TO HAVE A PASSWORD SET UP THE PT IS A CONFIDENTIAL PT. THE PASSWORD IS CECY PEREZ. PT'S MOTHER ALSO REQUESTED THAT PT NOT BE GIVEN ANY NARCOTICS.
[2018-06-17 01:00] LABS: APPEARANCE CLEAR (CLEAR); BILIRUBIN NEGATIVE (NEGATIVE); COLOR YELLOW (YELLOW); GLUCOSE 1000 mg/dL (NEGATIVE); KETONE SMALL mg/dL (NEGATIVE); NITRITE NEGATIVE (NEGATIVE); PROTEIN 2+ mg/dL (NEGATIVE); SPECIFIC GRAVITY 1.015 (1.005-1.020); UROBILINOGEN NORMAL (NORMAL); WHITE CELLS - URINE RARE /hpf (0-5)
[2018-06-17 01:01] LABS: AMORPHOUS SEDIMENT <1+ /lpf (NONE SEEN); BACTERIA NONE SEEN /hpf (NONE SEEN); EPITHELIAL CELLS NSEEN /hpf (0-5); RED CELLS - URINE 0-5 /hpf (0-5)
--- NOTE | 2018-06-17 02:04 | NUR ---
I have reviewed this patient and I concur with the Shift Assessment completed by the Licensed Practical Nurse today this shift.
[2018-06-17 04:00] VITALS: BP 167/90
--- NOTE | 2018-06-17 04:35 | NUR ---
PT REFUSES TO ALLOW MORNING LABS TO BE DRAWN
--- NOTE | 2018-06-17 06:47 | NUR ---
NOTIFIED PRAFUL THOMAS REGARDING PT POSITIVE TEST FOR CDT
--- NOTE | 2018-06-17 07:40 | NUR ---
ASSESSMENT DONE. DENIES NEEDS.
[2018-06-17 08:20] VITALS: BP 152/61
[2018-06-17 12:10] VITALS: BP 138/66
--- NOTE | 2018-06-17 14:45 | NUR ---
I have reviewed this patient and I concur with the Shift Assessment completed by the Licensed Practical Nurse today this shift.
[2018-06-17 14:52] VITALS: BP 124/69
--- NOTE | 2018-06-17 16:45 | NUR ---
WITHOUT CHANGES OR DISTRESS NOTED AT THIS TIME. DENIES NEEDS.
--- NOTE | 2018-06-17 19:23 | NUR ---
INTRODUCED SELF TO PATIENT, PATIENT RESP EVEN AND UNLABORED. PATIENT REQUESTING SANDWICH, PUDDING, ICE CREAM AND SODA. ADVISED PATIENT THAT HE WOULD NEED HIS BLOOD SUGAR CHECKED FIRST. PATIENT UNDERSTOOD.
[2018-06-17 20:30] VITALS: BP 168/93
--- NOTE | 2018-06-17 21:42 | NUR ---
PATIENT HIT CALL LIGHT, PATIENT REQUESTING SODA. ADVISED PATIENT THAT I COULDN'T GIVE HIM SODA DUE TO HIS REFUSAL OF CHECKING BLOOD SUGAR AND HIS POA/GUARDIAN STATED NO SODAS OR ICE CREAM. ADVISED PATIENT I COULD BRING HIM A GLASS OF WATER IF HE WANTED, "NEVERMIND THEN, I'LL JUST OF THIRST."
--- NOTE | 2018-06-17 23:14 | NUR ---
PATIENT RIPPED OUT IV, GOT DRESSED AND CONTINUED TO TRY TO LEAVE FACILITY. THIS NURSE AND FOUR OTHER NURSES FOLLOWED PATIENT, SECURITY WAS CALLED. PATIENT WAS WALKING OUT ER ENTRANCE, CONVINCED PATIENT TO STAY WITH DIET SODA.
--- NOTE | 2018-06-17 23:43 | NUR ---
PATIENT REQUESTED JELLO CUP, PUDDING AND SWEET TEA. ADVISED PATIENT WE DO NOT HAVE PREMADE SWEET TEA AND THAT WITHOUT KNOWING HIS BLOOD SUGAR I WAS NOT COMFORTABLE GIVING HIM THOSE THINGS. PT STATED, "I'M LEAVING THIS FUCKING PLACE, I'M GETTING DRESSED AND LEAVING." CONTACTED MOTHER, MOTHER ADVISED TO CALL SECURITY IF HE TRIES TO LEAVE.
[2018-06-18] VITALS (9 sets, daily range): BP systolic 109–189; BP diastolic 49–118; Ht 172.7 cm; Wt 59.0 kg
--- NOTE | 2018-06-18 02:28 | NUR ---
AFTER SPEAKING TO PRAFUL THOMAS, PT IS TO BE PLACED ON AN INSULIN DRIP AT 5 UNITS AN HOUR WITH A Q 1 HOUR BLOOD SUGAR CHECK. IN ADDITION PT IS TO BE GIVEN 25 MG SEROQUEL PO. PT IS TO BE TRANSFERRED TO THE ICU.
[2018-06-18 03:11] LABS: ANION GAP 19.4 mmol/L (8-16); CALCIUM 7.9 mg/dL (8.5-10.1); CARBON DIOXIDE 21.9 mmol/L (21.0-32.0); CREATININE - SERUM 7.1 mg/dL (0.6-1.3); POTASSIUM - SERUM 5.3 mmol/L (3.5-5.1)
--- NOTE | 2018-06-18 03:32 | NUR ---
REPORT RECEICED FROM SOFIA GEORGE ON MED-SURG II, PT AT THIS TIME CALM
--- NOTE | 2018-06-18 04:01 | NUR ---
PT CALM AND COOPERATIVE AT THIS TIME, ALLOWED INFORMATION TECHNOLOGY ADMINISTRATOR TO GIVE SLIDING SCALE REGULAR INSULIN, PT B/P ELEVATED 180/110, DISCUSSED WITH PT ABOUT PRN B/P MEDICATION, CALLED HOUSE SUPPERVISOR FOR SEROQUIL ORDER, WAITING FOR HOUSE SUP TO PULL MEDICATION, PT AAOx4, PT DENIES NEEDS AT THIS TIME, WILL CONT TO MONITOR
--- NOTE | 2018-06-18 05:30 | NUR ---
X2 DIET [place] AND LARGE CUP CHICKEN BROTH GIVEN TO PT PER REQUEST, PT AAOx4, CALM AND COOPERATIVE AT THIS TIME, WILL CONTINUE TO MONITOR
--- NOTE | 2018-06-18 07:00 | NUR ---
SHIFT ASSESSMENT COMPLETED. PT CARE ASSUMED. MONITORS ON AND WORKING, VITALS STABLE. PT AWAKE AND ALERT. CALL LIGHT WITHIN REACH, SEE FLOW SHEET FOR FURTHER DETAILS, WILL CONTINUE TO OBSERVE.
--- NOTE | 2018-06-18 09:00 | NUR ---
REC'D ORDERS TO TRANSFER PT TO FLOOR WHEN ROOM BECOMES AVAILABLE, WILL CONTINUE TO OBSERVE.
--- NOTE | 2018-06-18 11:29 | NUR ---
BLOOD SUGAR OF 274, 10UNITS OF HUMULOG GIVEN PER S/S. PT DENIES ANY NEEDS AT THIS TIME. CALL LIGHT IN REACH, NAD NOTED, WILL CONTINUE TO MONITOR.
--- NOTE | 2018-06-18 16:21 | NUR ---
CHECKED PT'S BLOOD SUGAR AND READING SHOWED HI, STAT GLUCOSE ORDERED AT THIS TIME. PT STATED " I AM GOING TO REFUSE IT BECAUSE THEY ALREADY MARGOTH BY BLOOD THIS MORNING". INFORMED PT THAT THEY HAVE TO DRAW A GLUCOSE BECAUSE THE MACHINE IS NOT READING WHAT HIS BLOOD SUGAR IS.
--- NOTE | 2018-06-18 18:10 | NUR ---
GLOOD SUGAR OF 663, GAVE 20UNITS PER S/S AND NOTIFIED ADENIKE WITH RENAL. WILL RECHECK PT BLOOD SUGAR IN ABOUT 40MIN.
--- NOTE | 2018-06-18 18:37 | NUR ---
WENT TO RECHECK BLOOD SUGAR AND PT REUSED TO HAVE BLOOD SUGAR CHECKED, HE STATED " THEY CAN CHECK IT LATER, I AM TRYING TO GET SOME REST."
--- NOTE | 2018-06-18 19:33 | NUR ---
RECIEVED LAYING IN BED WITH BLANKET OVER HIS HEAD. ARISES TO VERBAL STIMULI. REMAINS ON CONTACT ISOLATION R/T + FOR C-DIFF ANTIGEN. REPORTS HAVING LOOSE STOOLS AND REQUEST PULL UPS. LEFT ARM AVF WITH GOOD BRUIT AND TRILL. RECIEVES DIALYSIS ON , AND SAT.. STATES HE'S VERY SLEEPY AND WANTS TO GO TO SLEEP.
[2018-06-19 03:39] VITALS: BP 194/113
[2018-06-19 08:54] VITALS: BP 184/104
[2018-06-19 13:04] LABS: BASOPHILS 0.7 % (0-2); EOSINOPHILS 6.9 % (0-7); HEMATOCRIT 32.6 % (42.0-54.0); IMMATURE GRANULOCYTES 0.1 % (0-5); MCH 32.8 pg (26.0-34.0); MCHC 33.7 g/dL (31.0-37.0); MCV 97.3 fL (80.0-100.0); MONOCYTES 11.2 % (2-11); NEUTROPHILS 57.1 % (40-80); PLATELET COUNT 220 10x3/uL (130-400); RBC 3.35 10x6/uL (4.20-6.10); RDW 16.1 % (11.5-14.5); WBC 6.7 10x3/uL (4.8-10.8)
[2018-06-19 13:21] LABS: ANION GAP 13.3 mmol/L (8-16); CALCIUM 7.7 mg/dL (8.5-10.1); CARBON DIOXIDE 26.4 mmol/L (21.0-32.0); PHOSPHOROUS 2.9 mg/dL (2.5-4.9)
[2018-06-19 13:25] LABS: CREATININE - SERUM 3.8 mg/dL (0.6-1.3); POTASSIUM - SERUM 3.7 mmol/L (3.5-5.1)
--- NOTE | 2018-06-19 13:28 | NUR ---
LAB CALLED TO REPORT GLUCOSE OF 464. BLOOD WAS TAKEN AFTER PT HAD FINISHED EATING 2 TRAYS OF FOOD. PT WAS TREATED BEFORE LUNCH WITH SS INSULIN
[2018-06-19 17:16] VITALS: BP 179/99
--- NOTE | 2018-06-19 18:00 | NUR ---
PT FSBS 713, NOTIFIED AND GAVE 20U OF HUMALOG ORDERED. PER , RECHECK FSBS AT 1999 AND CALL HIM IF FSBS OVER 400.
--- NOTE | 2018-06-19 19:20 | NUR ---
OBSERVING CONTACT ISOLATION. PT DENIES ANY NEEDS AT THIS TIME LCTA SKIN WARM AND DRY AWAKE AND ALERT OX4
[2018-06-19 19:55] VITALS: BP 202/101
--- NOTE | 2018-06-19 20:40 | NUR ---
CLONIDINE GIVEN..BP 202/101....REFUSED DEPEKOTE ..PT REMOVED FROM CUP AND SAID I DO NOT TRUST DEPAKOTE
[2018-06-19 23:55] VITALS: BP 151/67
--- NOTE | 2018-06-20 02:54 | NUR ---
I have reviewed this patient and I concur with the Shift Assessment completed by the Licensed Practical Nurse today this shift.
[2018-06-20 03:30] VITALS: BP 202/101
--- NOTE | 2018-06-20 07:30 | NUR ---
A/A/OX4. DENIES ANY PAIN OR DISCOMFORT AND NO REQUESTS VOICED. STATES HE IS HOPING TO BE DISCHARGED TODAY. ASSESSMENT COMPLETED. NO NEW PROBLEMS NOTED.
[2018-06-20] MEDS ORDERED: FLAGYL250 MG PO (10:13)
--- NOTE | 2018-06-20 12:11 | MORECARE ---
CASE MANAGEMENT DISCHARGE SUMMARY PATIENT: OLIVER TALAVERA UNIT: [id number] ADM DATE: 06/16/18 AGE: 33 : [birth year] SEX: M ROOM/BED: D.2113 AUTHOR: CLAU SHARMA PHYSICIAN: REFERRING PHYSICIAN: KATIUSKA JONAS MD DATE OF SERVICE: 06/20/18 Discharge Plan Patient Name: OLIVER TALAVERA [facility] [facility] 1985 Planned Disposition: Nursing Facility ANTWAN Cert Anticipated Discharge Date: 06/20/18 Discharge Date: Expected LOS: 4 Initial Reviewer: [email or web address] Initial Review Date: 06/16/2018 Generated: 06/20/18 1:10 pm External [facility]iders [facility] Next Contact Date: 06/20/2018 Service Request Date: Service Type: Resolution: Reviewer: Comments: Patient Name: OLIVER TALAVERA Page [phone] at 1211 All edits/amendments must be made on the electronic document DICTATION DATE: 06/20/18 1210 ODD PIECE CHECKER: RENETTA 06/20/18 1210 RPT#: [id number] DC DATE: STATUS: ADM IN [facility] [address] [place] [address] END OF REPORT
--- NOTE | 2018-06-20 12:22 | MORECARE ---
CASE MANAGEMENT DISCHARGE SUMMARY PATIENT: OLIVER TALAVERA UNIT: [id number] ADM DATE: 06/16/18 AGE: 33 : 83 SEX: M ROOM/BED: D.0913 AUTHOR: CLAU SHARMA PHYSICIAN: REFERRING PHYSICIAN: KATIUSKA SIERRA MD DATE OF SERVICE: 06/20/18 Discharge Plan Patient Name: OLIVER TALAVERA Facility: [facility]:[place] : 1985 Planned Disposition: Nursing Facility ANTWAN Cert Anticipated Discharge Date: 06/20/18 Discharge Date: Expected LOS: 4 Initial Reviewer: [email or web address] Initial Review Date: 06/16/2018 Generated: 06/20/18 1:22 pm Comments DCP- Discharge Planning Updated by [email or web address]: Brian Lux on 06/20/18 11:[address] Patient Name: OLIVER TALAVERA Admission Status: ER Accout number: [id number] Admission Date: 06-16-2018 : 1985 Admission Diagnosis:NAUSEA WITH VOMITING, UNSPECIFIED Attending: Katiuska Sierra Current LOS: 4 Anticipated DC Date: 06-20-2018 Planned Disposition: Nursing Facility ANTWAN Cert Primary Insurance: MEDICAID [place] PLANNED EXTERNAL PROVIDER: Discharge Planning Comments: CM RECEIVED DISCHARGE ORDERS. CM MET WITH PT IN ROOM TO DISCUSS DISCHARGE PLANNING AND NEEDS. PT REPORTS LIVING AT [facility] IN [place] FOR THE PAST 9 MONTHS. PT HAS A WALKER PROVIDED BY [employer]. PT REPORTS THE SNF PROVIDES EVERYTHING FOR HIM AND TRANSPORTS TO [facility] [facility], [facility], 1130 AM. PT DENIES DISCHARGE NEEDS, STATES HE HAS TO GO BACK BECAUSE HIS MOTHER IS HIS GUARDIAN AND IS "RUNNING MY LIFE". PT STATES HE PLANS TO TAKE HIS MOTHER TO COURT IN THE FUTURE TO GET HIS RIGHTS BACK. PT STATES THAT THE SNF WILL PICK HIM UP FOR DISCHARGE BACK TO SNF. CM CALLED PEDRITO WINCHESTER, [place] GUARDIAN / MOTHER, ; [phone] AND CHRISTEN W[place] GUARDIAN, . THERE WERE NO OTHER NUMBERS LISTED, THERE WAS NO ANSWER AT ANY PHONE NUMBER AND NO MESSAGE MACHINE TO LEAVE A MESSAGE. CM [facility], , NOTIIFED OF PT'S DISCHARGE TO SNF TODAY. OSVALDO VERIFIED PT IS IN [facility] AND WILL RETURN TO [facility]. CM FAXED HOSPITAL UPDATE AND DISCHARGE INFORMATION TO [facility]) AT [phone]. NURSE REPORT TO BE CALLED TO [facility] AT [phone]. [facility]) TO ARRANGE VAN TRANSPORTATION. Shift Foreman: Brian Lux DCPIA - Discharge Planning Initial Assessment Updated by [email or web address]: Brian Lux on 06/20/18 12:13 pm * Is the patient Alert and Oriented? Yes * How many steps to enter\\exit or inside your home? NONE * PCP DR. COLLADO * Pharmacy [facility] * Preadmission Environment [facility] * Facility Name [facility]) * ADLs Partial Dependent * Partial ADLs (Assistance needed) Medication Management * Equipment Walker * Other Equipment ALL EQUIPMENT PROVIDED BY FACILITY * List name and contact numbers for known caregivers / representatives who currently or will assist patient after discharge: PEDRITO W[place], [place] GUARDIAN / MOTHER, ; [phone] CHRISTEN [place], [place] GUARDIAN, * Verbal permission to speak to the caregivers and representatives has been obtained from the patient. N/A * Community resources currently utilized Other * Please name any agencies selected above. OUTPATIENT [facility]IALYSIS, [place] [facility], T[facility], 1130, FACILITY TRANSPORTS * Additional services required to return to the preadmission environment? No * Can the patient safely return to the preadmission environment? Yes * Has this patient been hospitalized within the prior 30 days at any hospital? No Last DP export: 06/20/18 11:10 a Patient Name: OLIVER TALAVERA Page [phone] at 1222 All edits/amendments must be made on the electronic document DICTATION DATE: 06/20/18 1221 PULP DRIER: RENETTA 06/20/18 1221 RPT#: [id number] DC DATE: STATUS: ADM IN [facility] [address] [place] [address] END OF REPORT
--- NOTE | 2018-06-20 13:25 | NUR ---
DISCHARGE INSTRUCTIONS REVIEWED WITH PT AND VOICES NO QUESTIONS. ALL INSTRUCTIONS WILL BE SENT TO [facility] WITH HIM. REPORT CALLED TO [facility] AND SPOKE WITH LEWIS.
--- NOTE | 2018-06-20 14:45 | NUR ---
PT LEFT FLOOR VIA W/C WITH ALL PERSONAL BELONGINGS. LEFT FACILITY VIA PRIVATE VEHICLE WITH HIS MOTHER.
== END 2018-06-20 14:45 | DRG 371 ==
LOC: D.ER 00:24 → D.M2 02:26 → D.EDHOLD 02:26 → D.M2 02:49 → D.ICU 06-18 03:28 → D.M2 06-18 09:51
PROVIDERS: Family Medicine; ADMIT Internal Medicine Nephrology; ATTEND Internal Medicine Nephrology
PROC: 5A1D70Z Performance of Urinary Filtration, Intermittent, Less than 6 Hours Per Day (ICD-10-PCS; principal; 2018-06-16)
DX: A04.72 Enterocolitis due to Clostridium difficile, not specified as recurrent (principal); N18.6 End stage renal disease; E10.10 Type 1 diabetes mellitus with ketoacidosis without coma; I12.0 Hypertensive chronic kidney disease with stage 5 chronic kidney disease or end stage renal disease; E10.22 Type 1 diabetes mellitus with diabetic chronic kidney disease; K29.70 Gastritis, unspecified, without bleeding; E87.5 Hyperkalemia; F31.9 Bipolar disorder, unspecified; Z91.19 Patient's noncompliance with other medical treatment and regimen

== ENCOUNTER 2018-06-30 00:09 | Inpatient (IN) | payer MEDICAID ==
[2018-06-30] VITALS (15 sets, daily range): BP systolic 110–176; BP diastolic 83–102; Ht 172.7 cm; Wt 56.1 kg
[~2018-06-30] VITALS: Ht 172.7 cm; Wt 56.1 kg
[~2018-06-30 00:09] MED LIST changes: +FLAGYL250 MG PO
[2018-06-30] MEDS ORDERED: SULFAMETHOXAZOL1 TA3 PO (00:26)
[2018-06-30] MEDS ORDERED: ULTRAM50 MG PO (00:27)
[2018-06-30] MEDS ORDERED: VOLTAREN100 GM TOPICAL (00:27)
[2018-06-30] MEDS ORDERED: ZOCOR20 MG PO (00:27)
[2018-06-30 01:09] LABS: BASOPHILS 0.2 % (0-2); HEMATOCRIT 35.8 % (42.0-54.0); HEMOGLOBIN 12.2 g/dL (13.5-17.5); IMMATURE GRANULOCYTES 0.2 % (0-5); LYMPHOCYTES 7.8 % (15-50); MCH 32.9 pg (26.0-34.0); MCHC 34.1 g/dL (31.0-37.0); MCV 96.5 fL (80.0-100.0); MEAN PLATELET VOLUME 9.5 fL (7.4-10.4); MONOCYTES 9.7 % (2-11); NEUTROPHILS 81.1 % (40-80); RBC 3.71 10x6/uL (4.20-6.10); RDW 15.5 % (11.5-14.5); WBC 12.8 10x3/uL (4.8-10.8)
[2018-06-30 01:14] LABS: PLATELET COUNT 371 10x3/uL (130-400)
[2018-06-30 01:30] LABS: ALBUMIN 3.2 g/dL (3.4-5.0); ALKALINE PHOSPHATASE 128 U/L (46-116); ALT (SGPT) 80 U/L (10-68); BILIRUBIN - TOTAL 0.44 mg/dL (0.2-1.3); CALCIUM 8.3 mg/dL (8.5-10.1); CARBON DIOXIDE 20.3 mmol/L (21.0-32.0); CHLORIDE - SERUM 97 mmol/L (98-107); CREATININE - SERUM 8.1 mg/dL (0.6-1.3); LIPASE 194 U/L (73-393); POTASSIUM - SERUM 4.9 mmol/L (3.5-5.1); PROTEIN - SERUM 7.4 g/dL (6.4-8.2); SODIUM 137 mmol/L (136-145); UREA NITROGEN 91 mg/dL (7-18); eGFR NON AFRICAN AMERICAN 8 mL/min (90-120)
[2018-06-30 01:33] LABS: CALC OSMOLALITY 326 mosm/kg (275-300); GLUCOSE 541 mg/dL (74-106); KETONE - SERUM SMALL mg/dL (NEGATIVE); PRO BNP 4263 pg/mL (0-125)
--- NOTE | 2018-06-30 02:53 | NUR ---
PT ARRIVED TO FLOOR BY WHEELCHAIR, REPORT TAKEN FROM ZORA ELIZALDE RN. INTRODUCED SELF TO PT. VITALS STABLE. NO S/S OF DISTRESS NOTED. CALL LIGHT IN REACH. WILL CTM.
--- NOTE | 2018-06-30 02:59 | NUR ---
ADMISSION ASSESSMENT COMPLETED AT THIS TIME.
--- NOTE | 2018-06-30 06:11 | NUR ---
BLOOD SUGAR NOT ABLE TO BE READ BY GLUCOMETER, ORDERED LINE DRAW FROM LAB.
--- NOTE | 2018-06-30 07:51 | NUR ---
PATIENT IS AWAKE AND ALERT AT THIS TIME. RECIEVED NEW LAB AND OFF GOING NURSE ADMINISTERED MEDICATIONS ORDERED. REPORTED BLOOD SUGAR TO DR RUIZ. CALLED MYLENE BRITO. REPORTED BLOOD SUGAR AND INSULIN GIVEN. HE REPORTS HE WILL CHECK ON PATIENT WHEN HE ROUNDS. PATIENT WAS HERE 2 WEEKS AGO IN ICU BECAUSE OF HIS BLOOD SUGAR. WILL CONTINUE TO MONITOR CLOSELY. ALSO, HIS FATHER CALLED AND REQUESTED THAT THE PATIENT BE MADE CONFIDENTIAL AND HAVE NO VISITORS. PATIENTS PARENTS HAVE FULL GARDIANSHIP. PASSWORD CREATED. CALLED ADMINISTRATION TO PLACE PATIENT CONFIDENTIAL.
[2018-06-30 09:02] LABS: ALBUMIN 3.1 g/dL (3.4-5.0); BILIRUBIN - TOTAL 0.38 mg/dL (0.2-1.3); CALCIUM 8.2 mg/dL (8.5-10.1); CREATININE - SERUM 8.4 mg/dL (0.6-1.3); POTASSIUM - SERUM 5.3 mmol/L (3.5-5.1); PROTEIN - SERUM 6.7 g/dL (6.4-8.2)
[2018-06-30 09:05] LABS: ANION GAP 36.8 mmol/L (8-16)
[2018-06-30 09:09] LABS: CARBON DIOXIDE 9.5 mmol/L (21.0-32.0)
--- NOTE | 2018-06-30 09:31 | NUR ---
BLOOD SUGAR LEVEL UNABLE TO READ. LAB IS DOING A STAT BLANCA ON HIM NOW.PATIENT WILL BE MOVED TO ICU TODAY. CO2 REPORTED AFTER AKNOWLEDGED BY ROBBY.
--- NOTE | 2018-06-30 09:41 | NUR ---
GAVE 20 U OF INSULIN PER ORDER FOR UNREADABLE LEVEL. BLOOD SUGAR IS STILL OVER 600 AND CAN NOT READ ON GLUCOMETER. LAB CAME FOR A STAT DRAW. PT WILL BE MOVED TO ICU, RM [id number]
--- NOTE | 2018-06-30 10:50 | NUR ---
ARRIVED FROM MED/SURG FLOOR VIA BED AND TWO STAFF, PATIENT AWAKE AND ALERT, RESPONDS APPROP TO PHYLLIS CUE, FSBS 457, INSULIN DRIP PROTOCOL STARTED WHEN ARRIVED FROM RX AT 1145
--- NOTE | 2018-06-30 11:01 | NUR ---
PATIENT HAS BEEN TRANSFERED TO ICU. ALL PATIENT BELONGINGS HAVE BEEN REMOVED FROM THE ROOM. PATIENT WAS ALERT AND TALKING AT TIME OF TRANSFER. REPORT CALLED AND PATIENT IS GOING TO ROOM 2314.
--- NOTE | 2018-06-30 13:05 | NUR ---
PATIENT FSBS 191, INSULIN DRIP RATE DECREASED TO UNIT AN HOUR PER PROTOCOL.
[2018-06-30 14:50] LABS: APPEARANCE CLEAR (CLEAR); BILIRUBIN NEGATIVE (NEGATIVE); COLOR YELLOW (YELLOW); GLUCOSE 1000 mg/dL (NEGATIVE); KETONE MODERATE mg/dL (NEGATIVE); NITRITE NEGATIVE (NEGATIVE); PROTEIN 2+ mg/dL (NEGATIVE); SPECIFIC GRAVITY 1.015 (1.005-1.020); UROBILINOGEN NORMAL (NORMAL)
[2018-06-30 14:51] LABS: BACTERIA MODERATE /hpf (NONE SEEN); RED CELLS - URINE 0-5 /hpf (0-5); WHITE CELLS - URINE 0-5 /hpf (0-5)
[2018-06-30 15:28] LABS: BASOPHILS 0.2 % (0-2); EOSINOPHILS 1.1 % (0-7); HEMATOCRIT 32.9 % (42.0-54.0); HEMOGLOBIN 11.3 g/dL (13.5-17.5); IMMATURE GRANULOCYTES 0.3 % (0-5); LYMPHOCYTES 14.5 % (15-50); MCHC 34.3 g/dL (31.0-37.0); MCV 96.2 fL (80.0-100.0); MEAN PLATELET VOLUME 9.3 fL (7.4-10.4); MONOCYTES 13.2 % (2-11); NEUTROPHILS 70.7 % (40-80); PLATELET COUNT 385 10x3/uL (130-400); RBC 3.42 10x6/uL (4.20-6.10); RDW 16.1 % (11.5-14.5); WBC 15.6 10x3/uL (4.8-10.8)
--- NOTE | 2018-06-30 21:30 | NUR ---
NO VISITORS PRESENT AT THIS TIME, PT RESTING WITH SLEEP MASK IN PLACE, VSS.
[2018-07-01] VITALS (18 sets, daily range): BP systolic 104–185; BP diastolic 68–125
--- NOTE | 2018-07-01 00:47 | NUR ---
PT C/O ABDOMINAL PAIN AND RT WRIST PAIN, ORDERS RECEIVED TO RESTART MODIFIED HOME MEDS PER DR RUIZ.
--- NOTE | 2018-07-01 03:46 | NUR ---
REASSESSMENT PER FLOWSHEET, NO ACUTE CHANGES NOTED, VSS
[2018-07-01 06:09] LABS: BASOPHILS 0.2 % (0-2); EOSINOPHILS 3.1 % (0-7); HEMOGLOBIN 11.9 g/dL (13.5-17.5); IMMATURE GRANULOCYTES 0.2 % (0-5); LYMPHOCYTES 17.3 % (15-50); MCH 33.4 pg (26.0-34.0); MEAN PLATELET VOLUME 9.3 fL (7.4-10.4); MONOCYTES 6.4 % (2-11); NEUTROPHILS 72.8 % (40-80); PLATELET COUNT 331 10x3/uL (130-400); RBC 3.56 10x6/uL (4.20-6.10); RDW 16.3 % (11.5-14.5); WBC 12.3 10x3/uL (4.8-10.8)
[2018-07-01 06:18] LABS: MCV 98.3 fL (80.0-100.0)
[2018-07-01 06:20] LABS: APTT 27.2 SECONDS (22.8-39.4); INR 1.14 (0.85-1.17); PROTIME 14.1 SECONDS (11.6-15.0)
[2018-07-01 07:27] LABS: ALBUMIN 2.9 g/dL (3.4-5.0); BILIRUBIN - TOTAL 0.35 mg/dL (0.2-1.3); CALCIUM 8.9 mg/dL (8.5-10.1); CREATININE - SERUM 7.9 mg/dL (0.6-1.3); PROTEIN - SERUM 6.7 g/dL (6.4-8.2)
[2018-07-01 07:29] LABS: ANION GAP 23.7 mmol/L (8-16); POTASSIUM - SERUM 4.2 mmol/L (3.5-5.1)
[2018-07-01 07:30] LABS: CARBON DIOXIDE 19.5 mmol/L (21.0-32.0)
--- NOTE | 2018-07-01 11:35 | NUR ---
PATIENT C/O UPSET STOMACH, NO INSULIN GIVEN AT PRESENT THIS PATIENT SHOWS TO BE VERY BRITTLE AND IF HE DOES NOT EAT MAY BECOME HYPOGLYCEMIC WITH INSULIN INJECTION
--- NOTE | 2018-07-01 11:44 | NUR ---
PATIENT REFUSES TELEMETRY BUT COOPERATES WITH OTHER EQUIPMENT EXCEPT THE PULSE OX, BP CUFF IS IN PLACE AND HE AGREES TO WEAR THAT SINCE WE RESTARTED HIS BP MEDICATION
--- NOTE | 2018-07-01 12:05 | NUR ---
DIET CHANGED TO RENAL ADA FOR OBVIOUS REASONS
--- NOTE | 2018-07-01 15:01 | NUR ---
NURSE TRIED TO PUT EKG PAD ON PATIENT. PATEINT REFUSED TO HAVE THEM PUT ON STATES THEY PULL HIS CHEST HAIR. WOULD NOT LET NURSE APPLY
--- NOTE | 2018-07-01 16:58 | NUR ---
CALLED OPERATIONS DISPATCHER FOR DR. COLLADO AND EXPLAINED THE PATIENTS GLUCOSE BRITTA. NO NEW ORDERS AT PRESENT AND OPERATIONS DISPATCHER AGREES WITH DECISION TO GIVE ONLY 5 UNITS OF INSULIIN AT PRESENT
--- NOTE | 2018-07-01 19:15 | NUR ---
REC'D TO CARE, CASINO FLOOR WALKER PER FLOWSHEET. PT ALERT AND ORIENTED. VSS. PT DENIES PAIN OR NEEDS. WATCHING TV. USES C/L.
--- NOTE | 2018-07-01 20:05 | NUR ---
PAGED DR. COLLADO AND MYLENE BUSTAMANTE RETURNED PAGE. NOTIFIED OF FSBS 364 - PT REPORTS THE ORDERED INSULIN SS IS TOO HIGH FOR HIM AND REQUESTS HIS SS FROM MD BE USED - NEW ORDER REC'D.
--- NOTE | 2018-07-01 20:10 | NUR ---
H.S. NOTIFIED OF NEW ORDER FOR GLOBAL FOOD TECHNOLOGIES.
--- NOTE | 2018-07-01 22:40 | NUR ---
PT REQUESTS GLUCOSE CHECK, "FEEL LIKE MY SUGAR IS LOW". FSBS 424 - DR. BUSTAMANTE PAGED. NEW ORDER REC'D FOR ONE TIME 3 UNITS HUMALOG SUBQ.
--- NOTE | 2018-07-01 23:35 | NUR ---
PT RESTING WITH EYES CLOSED, NO SIGN OF DISTRESS. C/L IN REACH.
[2018-07-02] VITALS (17 sets, daily range): BP systolic 108–173; BP diastolic 63–104
--- NOTE | 2018-07-02 01:00 | NUR ---
RESTING WITH EYES CLOSED, VSS. NO SIGN OF DISTRESS.
--- NOTE | 2018-07-02 03:14 | NUR ---
REASSESSMENT PER FLOWSHEET, NO ACUTE CHANGES. PT VOIDED 100ML CLEAR, YELLOW URINE IN BSC WITH SMALL AMT STOOL NOTED, UNABLE TO COLLECT STOOL SAMPLE.
[2018-07-02 03:48] LABS: HEMATOCRIT 32.7 % (42.0-54.0); HEMOGLOBIN 11.3 g/dL (13.5-17.5); LYMPHOCYTES 24.7 % (15-50); MCH 34.1 pg (26.0-34.0); MCHC 34.6 g/dL (31.0-37.0); MCV 98.8 fL (80.0-100.0); MEAN PLATELET VOLUME 8.6 fL (7.4-10.4); PLATELET COUNT 318 10x3/uL (130-400); RBC 3.31 10x6/uL (4.20-6.10); RDW 15.7 % (11.5-14.5)
[2018-07-02 03:49] LABS: WBC 8.1 10x3/uL (4.8-10.8)
[2018-07-02 04:01] LABS: ANION GAP 17.1 mmol/L (8-16); CALCIUM 8.2 mg/dL (8.5-10.1); CARBON DIOXIDE 23.1 mmol/L (21.0-32.0); CREATININE - SERUM 8.5 mg/dL (0.6-1.3); POTASSIUM - SERUM 4.2 mmol/L (3.5-5.1)
--- NOTE | 2018-07-02 07:00 | NUR ---
RECEIVED REPORT FROM MALAIKA WILD. PT RESTING IN BED WITH STABLE VS. NORMAL SINUS RHYTHM. AWAKE ALERT AND ORIENTED. WILL CONTINUE TO MONITOR
--- NOTE | 2018-07-02 07:47 | NUR ---
SERVED BREAKFAST TRAY
--- NOTE | 2018-07-02 09:32 | NUR ---
OBTAINED STOOL SPECIMEN FOR C-DIFF LAB. TOOK TO LAB.
--- NOTE | 2018-07-02 09:57 | NUR ---
NUTRITION F/U CHART REVIEWED, PT VISIT. PT REPORTS NAUSEA YESTERDAY. DID TOLERATE DINNER LAST NITE AND BREAKFAST THIS AM. WILL CONTINUE TO MONITOR PT PROGRESS. RD FOLLOWING
--- NOTE | 2018-07-02 11:15 | NUR ---
BG 420. CALLED LUIS KAPADIA FOR DR. COLLADO ABOUT INSULIN DOSE. ORDERS TO CONTINUE CURRENT SLIDING SCALE. WILL CONTINUE TO MONITOR
--- NOTE | 2018-07-02 12:00 | NUR ---
OBTAINED CONSENT FOR POSSIBLE EGD WITH TIVA FROM PATIENTS GUARDIAN (STEPFATHER). EXPLAINED THAT EGD WILL POSSIBLY BE CANCELLED. PLACED IN CHART AND GAVE GUARDIAN COPY PER REQUEST.
--- NOTE | 2018-07-02 13:30 | NUR ---
PT RSTING IN BED C STA VSS. WILL CONTINUE TO MONITOR
--- NOTE | 2018-07-02 15:00 | NUR ---
PT RESTING IN BED C CALL ORTIZ IN REACH. NO COMPLAINTS. VSS
--- NOTE | 2018-07-02 15:45 | NUR ---
DR. CHRISTIE CAME TO SEE PATIENT. ORDERS TO OBTAIN CONSENT FOR EGD TOMORROW. NPO AFTER 6 AM
--- NOTE | 2018-07-02 17:27 | NUR ---
CALLED PATIENTS [facility] TO NOTIFY OF TRANSFER TO [address] [place] [place] [address] AND EGD SCHEDULED TOMORROW.
--- NOTE | 2018-07-02 19:48 | NUR ---
PATIENT RESTING IN BED EATING WITH NO S/S OF DISTRESS. PATIENT REQUESTED A PAIN PILL THAT HE STATED HE ASKED FOR LAST SHIFT. I TOLD THE PATIENT I WOULD CHECK AND BRING AN ULTRAM IF IT IS TIME. PATIENT VERBALIZED UNDERSTANDING. PATIENT DENIES OTHER NEEDS AT THIS TIME. BED IN LOWEST POSITION AND CALL LIGHT WITHIN REACH. ENCOURAGED THE PATIENT TO CALL IF HE HAS OTHER NEEDS. WILL CONTINUE TO MONITOR.
--- NOTE | 2018-07-02 20:13 | NUR ---
CHECKED PATIENT'S BLOOD GLUCOSE TWO TIMES. FIRST TIME RESULTS WERE 594, SECOND TIME RESULTS WERE 565. PATIENT REFUSED TO HAVE STAT LAB DRAW TO CONFIRM BLOOD GLUCOSE.
--- NOTE | 2018-07-02 20:16 | NUR ---
PAGED STATIONARY ENGINEER SUPERVISOR FOR DR. COLLADO
--- NOTE | 2018-07-02 20:18 | NUR ---
SPOKE WITH STEFFI IN REGARDS TO PATIENT'S BLOOD GLUCOSE. HE STATED TO GIVE HIM THE 6 UNITS OF INSULIN
[2018-07-03 04:30] VITALS: BP 124/78
--- NOTE | 2018-07-03 07:15 | NUR ---
INITIAL ROUNDING, PATIENT IS AWAKE AND IN THE BATHROOM, PATIENT REMINDED HE IS NPO AND HAS DIALYSIS THIS AM.
[2018-07-03 08:03] LABS: CALCIUM 7.6 mg/dL (8.5-10.1); CREATININE - SERUM 9.7 mg/dL (0.6-1.3)
[2018-07-03 08:08] LABS: ANION GAP 33.3 mmol/L (8-16); CARBON DIOXIDE 9.3 mmol/L (21.0-32.0); POTASSIUM - SERUM 5.6 mmol/L (3.5-5.1)
[2018-07-03 08:13] LABS: HEPATITIS C ANTIBODY >11.0 S/CO RAT (0.0-0.9)
[2018-07-03 08:13] LABS: HEMOGLOBIN 11.1 g/dL (13.5-17.5); MCH 33.1 pg (26.0-34.0); MCHC 30.8 g/dL (31.0-37.0); MEAN PLATELET VOLUME 10.5 fL (7.4-10.4); PLATELET COUNT 300 10x3/uL (130-400); RBC 3.35 10x6/uL (4.20-6.10); RDW 15.5 % (11.5-14.5); WBC 9.2 10x3/uL (4.8-10.8)
[2018-07-03 08:15] LABS: MCV 107.5 fL (80.0-100.0)
[2018-07-03 08:25] VITALS: BP 114/61
[2018-07-03 09:45] LABS: EOSINOPHILS 4 % (0-7); LYMPHOCYTES 11 % (15-50); MONOCYTES 6 % (2-11); NEUTROPHILS 78 % (40-80); PLATELET ESTIMATE NORMAL
[2018-07-03 16:00] VITALS: BP 148/82
--- NOTE | 2018-07-03 16:22 | NUR ---
CALLED AND REPORTED TO NATALIE AG FOR DR COLLADO, THE GLUCOSE READING OF "HIGH" AND THE FACT THE PATIENT REFUSES TO HAVE A LAB DRAW TO VERIFY THE BLOOD GLUCOSE. ANCELMO STATED "OK"
--- NOTE | 2018-07-03 20:45 | NUR ---
PATIENT REFUSED TO LET THE PATIENT TAKE HIS VITAL SIGNS. I EXPLAINED TO THE PATIENT THAT HE HAS BLOOD PRESSURE MEDICATION DUE AND THAT I CAN'T GIVE HIM HIS MEDS WITHOUT VITALS. PATIENT STATED HE DOES NOT WANT TO TAKE HIS MEDS TONIGHT. I ASKED THE PATIENT IF HE WANTED ANY OF HIS MEDICATIONS AND I ASKED IF I CAN CHECK HIS BLOOD SUGAR. THE PATIENT STATED NO, I DON'T WANT ANY OF IT TONIGHT. I CALLED AND LEFT A MESSAGE FOR THE PATIENT'S MOTHER (GUARDIAN). WAITING FOR A CALL BACK. WILL CALL AGAIN IF I DO NOT HEAR BACK FROM HER.
--- NOTE | 2018-07-03 21:40 | NUR ---
SPOKE WITH CHELA, LEGAL GUARDIAN OF THE PATIENT, I EXPLAINED THAT THE PATIENT IS REFUSING ALL TREATMENT TONIGHT. SHE ASKED THAT I CONTACT THE DOCTOR TO HAVE THE PATIENT TRANS TO THE ICU AND PUT IN RESTAINTS SO THAT THE PATIENT CAN BE TREATED.
--- NOTE | 2018-07-03 21:46 | NUR ---
PAGED LIANE, [employer] FOR DR. COLLADO
--- NOTE | 2018-07-03 21:49 | NUR ---
SPOKE WITH LIANE IN REGARDS TO THE PATIENT REFUSING ALL TREATMENTS AND HIS GUARDIAN REQUESTING THAT HE BE MOVED TO THE ICU IN RESTRAINTS IF HE WILL NOT COMPLY. LIANE REQUESTED THAT I ENSURE WE HAVE GUARDIANSHIP PAPERS ON FILE AND THAT WE COULD MOVE THE PATIENT TO THE ICU IF NEEDED. I TOLD LIANE THAT I WOULD TRY TALKING TO THE PATIENT AGAIN PRIOR TO TRANS TO THE ICU.
--- NOTE | 2018-07-03 21:57 | NUR ---
I SPOKE WITH THE PATIENT AGAIN ABOUT THE IMPORTANCE OF TAKING HIS MEDICATION AND MONITORING HIS BLOOD GLUCOSE AND VITALS. AFTER OUR CONVERSATION THE PATIENT AGREED TO HAVE HIS BLOOD GLUCOSE CHECKED AND HE AGREED TO LET ME ADMINISTER INSULIN.
--- NOTE | 2018-07-03 22:02 | NUR ---
SPOKE WITH THE PATIENT AGAIN AND EXPLAINED THE IMPORTANCE OF HIS OTHER MEDICATIONS THAT ARE ORDERED. THE PATIENT AGREED TO TAKE HIS FLAGYL AND FLORASTOR WITH HIS TRAMADOL. ADMINISTERED MEDS PER ORDERS.
[2018-07-03 22:07] VITALS: BP 131/63
--- NOTE | 2018-07-03 22:21 | NUR ---
SPOKE WITH CHELA, PATIENT'S LEGAL GUARDIAN AGAIN. I EXPLAINED THAT THE PATIENT LET US DO VITALS, CHECK HIS GLUCOSE, AND REVIEWED THE MEDS THAT THE PATIENT AGREED TO TAKE. PEDRITO SAID THAT IT WAS OK FOR TONIGHT AND WE DO NOT NEED TO SEND HIM TO THE UNIT TO BE RESTRAINED.
[2018-07-04 04:29] VITALS: BP 143/61
--- NOTE | 2018-07-04 05:50 | NUR ---
INITIAL ROUNDING ON THE PATIENT WITH THE DIMETHYLANILINE SULFATOR OPERATOR RN, PATIENT IS AWAKE AND GETTING INSULIN AT THIS TIME. HE IS AGGITATED THAT "I AM EVEN AWAKE RIGHT NOW". WILL CONT TO MONITOR
[2018-07-04 09:44] VITALS: BP 177/94
--- NOTE | 2018-07-04 10:37 | NUR ---
Nutrition Follow Up: Chart reviewed. Noted pt has received ADA diet education during previous admit. Diet: Renal ADA PO Intake: 88% meal avg BM: 07/02/18 Labs reviewed - Glucose continues very elevated Meds noted including Lasix, Humalog Rec continue current diet. RD following.
[2018-07-04 13:33] VITALS: BP 148/85
--- NOTE | 2018-07-04 13:51 | MORECARE ---
CASE MANAGEMENT DISCHARGE SUMMARY PATIENT: OLIVER TALAVERA UNIT: [id number] ADM DATE: 06/30/18 AGE: 33 : 84 SEX: M ROOM/BED: D.1213 AUTHOR: CLAU SHARMA PHYSICIAN: REFERRING PHYSICIAN: LEAH COLLADO MD DATE OF SERVICE: 07/04/18 Discharge Plan Patient Name: OLIVER TALAVERA Facility: [facility]:[place] : 1985 Planned Disposition: Nursing Facility [facility] Anticipated Discharge Date: Discharge Date: Expected LOS: Initial Reviewer: [email or web address] Initial Review Date: 07/04/2018 Generated: 07/04/18 2:51 pm Patient Name: OLIVER TALAVERA Page 74617 at 1351 All edits/amendments must be made on the electronic document DICTATION DATE: 07/04/18 1350 SOLICITOR PATENT: RENETTA 07/04/18 1350 RPT#: [id number] DC DATE: STATUS: ADM IN [facility] [address] [place] [address] END OF REPORT
--- NOTE | 2018-07-04 13:59 | MORECARE ---
CASE MANAGEMENT DISCHARGE SUMMARY PATIENT: OLIVER TALAVERA UNIT: [id number] ADM DATE: 06/30/18 AGE: 33 : 84 SEX: M ROOM/BED: D.1213 AUTHOR: EDITHDOC PHYSICIAN: REFERRING PHYSICIAN: LEAH COLLADO MD DATE OF SERVICE: 07/04/18 Discharge Plan Patient Name: OLIVER TALAVERA Facility: [facility]:[place] : 1985 Planned Disposition: Nursing Facility [facility] Cert Anticipated Discharge Date: Discharge Date: Expected LOS: Initial Reviewer: [email or web address] Initial Review Date: 07/04/2018 Generated: 07/04/18 2:59 pm Comments DCP- Discharge Planning Updated by [email or web address]: Susan Enrique on 07/04/18 12:[address] Patient Name: OLIVER TALAVERA Admission Status: ER Accout number: [id number] Admission Date: 06-30-2018 : 1985 Admission Diagnosis:TYPE 1 DIABETES MELLITUS W DIABETIC CHRONIC KIDNEY DISE Attending: LEAH COLLADO Current LOS: 4 Anticipated DC Date: Planned Disposition: Nursing Facility [facility] Cert Primary Insurance: MEDICAID [place] Discharge Planning Comments: CM spoke with pt. regarding d/c needs . Pt will return to [facility] to ( [facility] Bed) , pt has no DME needs,. Pt will resume HD on T, Th, and Sat thru [place] transport. Will call Sarah with HD to verify. Will cont. to follow until DC Regulatory Affairs Intern: Susan Enrique DCPIA - Discharge Planning Initial Assessment Updated by [email or web address]: Susan Enrique on 07/04/18 1:52 pm * Is the patient Alert and Oriented? Yes * How many steps to enter\exit or inside your home? * PCP Dr. Collado * Pharmacy [facility] * Preadmission Environment [facility] * Facility Name [facility] * ADLs Partial Dependent * Partial ADLs (Assistance needed) Medication Management * Equipment Walker * List name and contact numbers for known caregivers / representatives who currently or will assist patient after discharge: Arpita Rooneywellspan [facility] [phone] or [phone] * Verbal permission to speak to the caregivers and representatives has been obtained from the patient. N/A * Community resources currently utilized None * Additional services required to return to the preadmission environment? No * Can the patient safely return to the preadmission environment? Yes * Has this patient been hospitalized within the prior 30 days at any hospital? Yes Last DP export: 07/04/18 12:51 p Patient Name: OLIVER TALAVERA Page 74148 at 1359 All edits/amendments must be made on the electronic document DICTATION DATE: 07/04/181357 DEVELOPMENT SYSTEM EFFICIENCY MANAGER: RENETTA 07/04/18 1358 RPT#: [id number] DC DATE: STATUS: ADM IN [facility] [address] [place] [address] END OF REPORT
--- NOTE | 2018-07-04 14:23 | MORECARE ---
CASE MANAGEMENT DISCHARGE SUMMARY PATIENT: OLIVER TALAVERA UNIT: [id number] ADM DATE: 06/30/18 AGE: 33 : 83 SEX: M ROOM/BED: D.1213 AUTHOR: EDITHDOC PHYSICIAN: REFERRING PHYSICIAN: LEAH COLLADO MD DATE OF SERVICE: 07/04/18 Discharge Plan Patient Name: OLIVER TALAVERA Facility: [facility]:[place] : 1985 Planned Disposition: Nursing Facility [facility] Cert Anticipated Discharge Date: Discharge Date: Expected LOS: Initial Reviewer: [email or web address] Initial Review Date: 07/04/2018 Generated: 07/04/18 3:23 pm Comments DCP- Discharge Planning Updated by [email or web address]: Susan Enrique on 07/04/18 1:[address] Called Sarah with pt. [facility] about Pt HD and pt will resume same schedule for HD on Tuesdays, and Sat. Spoke with [facility] about possible DC after HD in the morning. Van will grain picker after HD. CM faxed over paper work to Jose Antonio at [facility] at [phone] DCP- Discharge Planning Updated by [email or web address]: Susan Enrique on 07/04/18 12:[address] Patient Name: OLIVER TALAVERA Admission Status: ER Accout number: [id number] Admission Date: 06-30-2018 : 1985 Admission Diagnosis:TYPE 1 DIABETES MELLITUS W DIABETIC CHRONIC KIDNEY DISE Attending: LEAH COLLADO Current LOS: 4 Anticipated DC Date: Planned Disposition: Nursing Facility [facility] Cert Primary Insurance: MEDICAID [place] Discharge Planning Comments: CM spoke with pt. regarding d/c needs . Pt will return to [facility] to ( [facility] Bed) , pt has no DME needs,. Pt will resume HD on , , and Mon thru [place] transport. Will call Sarah with HD to verify. Will cont. to follow until DC Metal Turner: Susan Enrique DCPIA - Discharge Planning Initial Assessment Updated by [email or web address]: Susan Enrique on 07/04/18 1:52 pm * Is the patient Alert and Oriented? Yes * How many steps to enter\exit or inside your home? * PCP Dr. Collado * [facility]acy [facility] * [facility] * Facility Name [facility] * ADLs Partial Dependent * Partial ADLs (Assistance needed) Medication Management * Equipment Walker * List name and contact numbers for known caregivers / representatives who currently or will assist patient after discharge: Alan villalpando Genny Manan [phone] or [phone] * Verbal permission to speak to the caregivers and representatives has been obtained from the patient. N/A * Community resources currently utilized None * Additional services required to return to the preadmission environment? No * Can the patient safely return to the preadmission environment? Yes * Has this patient been hospitalized within the prior 30 days at any hospital? Yes Last DP export: 07/04/18 12:59 p Patient Name: OLIVER TALAVERA Page 77040 at 1423 All edits/amendments must be made on the electronic document DICTATION DATE: 07/04/181421 AUTOMOTIVE SALES SPECIALIST: RENETTA 07/04/181421 RPT#: [id number] DC DATE: STATUS: ADM IN [facility] [address] [place] [address] END OF REPORT
--- NOTE | 2018-07-04 14:31 | MORECARE ---
CASE MANAGEMENT DISCHARGE SUMMARY PATIENT: OLIVER TALAVERA UNIT: [id number] ADM DATE: 06/30/18 AGE: 33 : 83 SEX: M ROOM/BED: D.1213 AUTHOR: CLAU SHARMA PHYSICIAN: REFERRING PHYSICIAN: LEAH COLLADO MD DATE OF SERVICE: 07/04/18 Discharge Plan Patient Name: OLIVER TALAVERA Facility: [facility]:[place] : 1985 Planned Disposition: Nursing Facility [facility] Cert Anticipated Discharge Date: Discharge Date: Expected LOS: Initial Reviewer: [email or web address] Initial Review Date: 07/04/2018 Generated: 07/04/18 3:31 pm Comments DCP- Discharge Planning Updated by [email or web address]: Susan Enrique on 07/04/18 1:[address] Called Sarah with pt. [facility] about Pt HD and pt will resume same schedule for HD on Tuesdays, and Sat. Spoke with [facility] about possible DC after HD in the morning. Van will pick up attendant after HD. CM faxed over paper work to Jose Antonio at [facility] at [phone] DCP- Discharge Planning Updated by [email or web address]: Susan Enrique on 07/04/18 12:[address] Patient Name: OLIVER TALAVERA Admission Status: ER Accout number: [id number] Admission Date: 06-30-2018 : 1985 Admission Diagnosis:TYPE 1 DIABETES MELLITUS W DIABETIC CHRONIC KIDNEY DISE Attending: LEAH COLLADO Current LOS: 4 Anticipated DC Date: Planned Disposition: Nursing Facility [facility] Cert Primary Insurance: MEDICAID [place] Discharge Planning Comments: CM spoke with pt. regarding d/c needs . Pt will return to [facility] to ( [facility] Bed) , pt has no DME needs,. Pt will resume HD on , , and Mon thru [place] transport. Will call Sarah with HD to verify. Will cont. to follow until DC Electrical Logging Engineer: Susan Enrique DCPIA - Discharge Planning Initial Assessment Updated by [email or web address]: Susan Enrique on 07/04/18 1:52 pm * Is the patient Alert and Oriented? Yes * How many steps to enter\exit or inside your home? * PCP Dr. Collado * Pharmacy [facility] * Preadmission Environment [facility] * Facility Name [facility] * ADLs Partial Dependent * Partial ADLs (Assistance needed) Medication Management * Equipment Walker * List name and contact numbers for known caregivers / representatives who currently or will assist patient after discharge: Alanhollie villalpando Genny Rooneydarnell [phone] or [phone] * Verbal permission to speak to the caregivers and representatives has been obtained from the patient. N/A * Community resources currently utilized None * Additional services required to return to the preadmission environment? No * Can the patient safely return to the preadmission environment? Yes * Has this patient been hospitalized within the prior 30 days at any hospital? Yes External Providers [facility] Next Contact Date: Service Request Date: Service Type: Resolution: Reviewer: Comments: Last DP export: 07/04/18 1:23 p Patient Name: OLIVER TALAVERA Page 73832 at 1431 All edits/amendments must be made on the electronic document DICTATION DATE: 07/04/18 1431 DIRECTOR OF PROGRAM MANAGEMENT: RENETTA 07/04/18 1431 RPT#: [id number] DC DATE: STATUS: ADM IN [facility] [address] [place] [address] END OF REPORT
[2018-07-04 17:46] VITALS: BP 148/85
--- NOTE | 2018-07-04 20:25 | NUR ---
PT SITTING UP ON SIDE OF BED. CALL LIGHT IN REACH. PT DENIES NEEDS OR PAIN AT THIS TIME. BED IN LOW .SIDE RAILS X2. LUNGS CLEAR. BOWEL ACTIVE X4. A/O X4. IV IN R FOREARM. PT TAKES SELF TO BATHROOM. TAKES MEDS WHOLE. PT IS ON FLUID RESTRICTION. TM.
--- NOTE | 2018-07-05 00:30 | NUR ---
PT RESTING QUIETLY. CALL LIGHT IN REACH. NO SIGNS OF DISTRESS OR PAIN. WCTM
--- NOTE | 2018-07-05 03:03 | NUR ---
I have reviewed this patient and I concur with the Shift Assessment completed by the Licensed Practical Nurse today this shift.
[2018-07-05 03:36] VITALS: BP 130/70
--- NOTE | 2018-07-05 05:24 | NUR ---
PT RESTING QUIETLY. CALL LIGHT IN REACH. NO SIGNS OF DISTRESS OR PAIN. WCTM
--- NOTE | 2018-07-05 06:29 | NUR ---
PT BLOOD GLUCOSE WOULD NOT READ ON GLUCOMETER BECAUSE OF IT BEING TO HIGH. PT REFUSED STAT LAB DRAW. RN AWARE. EDUCATED ABOUT IMPORTANCE OF CHECKING THIS AND HE COULD BE SENT TO CRITICAL CARE. PT STATED "I DONT CARE I WILL REFUSE ANY LAB DRAW NO MATTER WHAT." ROGERTM
--- NOTE | 2018-07-05 07:30 | NUR ---
INITIAL ROUNDING, PATIENT RESTING ON HIS RIGHT SIDE, LIGHTS OFF AND EYE MASK ON. HE WAKES FOR ROUNDING AND REPORTING STOMACH PAIN. CALL LIGHT IN REACH.
[2018-07-05 08:22] VITALS: BP 100/49
--- NOTE | 2018-07-05 12:08 | NUR ---
DIALYSIS CALLED TO SEE ABOUT TIME FOR DIALYSIS, PATIENT IS USUALLY DONE INTHE EARLY AM. DIALYSIS HAS BEEN PUSHED BACK TO 200 PM DUE TO SOME EMERGENCIES NEEDING DIALYSIS. PATIENT INFORMED AND HE AGREED TO TAKE SOME ORDERED RX. B/P MED HELD DUE TO LOWER B/P
--- NOTE | 2018-07-05 18:45 | NUR ---
PT SITTING UP IN BED. CALL LIGHT IN REACH. DENIES NEEDS OR PAIN. BED IN LOW. SIDE RAILS X2. A/O X4. BOWEL ACTIVE X4. LUNGS CLEAR. MEDS GIVEN WHOLE. PT BS WAS 221 AND PER PROTOCOL 2 UNITS WAS TO BE GIVEN. PT STATED HE WANTED IT IN HIS RIGHT ARM. THIS NURSE EDUCATED PT THAT THIS NURSE AND PREVIOUS NURSE ALREADY DISCUSED THIS WITH HIM ABOUT NOT GETTING HIS INSULIN ANYMORE IN HIS RIGHT DUE TO BUILT UP RESISTANCE TO THE INSULIN. PT THEN STATED " FUCK THIS AND IM GOING TO USE MY RIGHT ARM WHEN I GO HOME." PT ALLOWED THIS NURSE TO USE BELLY FOR INSULIN. WILL CONTINUE TO MONITOR.
--- NOTE | 2018-07-05 18:55 | NUR ---
PT PRESSED CALL LIGHT AND THIS NURSE WENT INTO PT ROOM. PT STATED HIS MOM WOULD LIKE TO TALK TO ME. PT MOTHER ASKED WHY I WASNT ALLOWED TO GIVE HIS INSULIN IN HIS RIGHT ARM ANYMORE. THIS NURSE EDUCATED MOTHER ON EVERYTHING THIS NURSE TOLD PT ABOUT IT BEING RESISTANT TO THE INSULIN AND EVER SINCE THE NURSES HAVE BEEN ADMINISTERING IT IN PT ABDOMEN, PT BS HAS BEEN MUCH LOWER AND SOME WHAT CONTROLLED. THIS NURSE ALSO INFORMED PT MOTHER THAT THIS IS WHAT THE DOCTOR WANTED. PT MOTHER THANKED THIS NURSE AND THIS NURSE HANDED THE PHONE BACK TO PT AND WALKED OUT OF ROOM. CALL LIGHT IN REACH
--- NOTE | 2018-07-05 19:00 | NUR ---
SHIFT REPORT WAS GIVEN IN ROOM WITH PT, THIS NURSE AND AMENA RN. BECKWITH INFORMED THIS NURSE AND PT THAT FINGER STICKS ARE TO BE TAKEN IN EVERYOTHER FINGER AND INSULIN TO BE GIVEN IN BELLY FOR NOW ON INSTEAD OF RIGHT ARM. PT STATED HE UNDERSTOOD. WCTM
[2018-07-05 20:40] VITALS: BP 139/89
--- NOTE | 2018-07-05 22:00 | NUR ---
PT WAS COMPLAINING ABOUT IV BURNING AND ITCHING. IV WAS SL AND PARTIALLY OUT OF VEIN. NO BLOOD RETURN. IV REMOVED PER PATIENT REQUEST. REFUSES ANOTHER IV. NO IV MEDS ON MAY. WCTM.
--- NOTE | 2018-07-06 02:23 | NUR ---
I have reviewed this patient and I concur with the Shift Assessment completed by the Licensed Practical Nurse today this shift.
--- NOTE | 2018-07-06 04:30 | NUR ---
INTERPRETER TRANSLATOR WENT INTO ROOM TO GET 0400 VITALS. PT GOT MAD AND WAS CUSSING AT [facility] BECAUSE HE CANT GET ANY SLEEP AROUND HERE HE SAID. PT REFUSED MIDNIGHT VITALS LAST NIGHT. WCTM
[2018-07-06 04:46] VITALS: BP 81/36
--- NOTE | 2018-07-06 04:48 | NUR ---
CHIEF DESIGN DRAFTER WENT INTO ROOM TO GET 0400 VITALS. PT GOT MAD AND SAID " DAMN IT". CHIEF DESIGN DRAFTER STATED THAT IT WILL BE ONLY A SECOND. PT THEN STATED "I CANT GET NO FUCKING SLEEP AROUND HERE". WCTM. BP WAS A LITTLE LOW WILL RECHECK WHEN AM MEDS ARE GIVEN TO GIVE PT SOME REST. PT WAS ASLEEP BEFORE BP WAS TAKEN AND LAYING DOWN FLAT.
--- NOTE | 2018-07-06 06:18 | NUR ---
PT REFUSED THIS NURSE TO CHECK BS WITH HIS FINGERS LIKE ORDER SAYS. PT STATED "HE DOESNT CARE WHAT THE DOCTOR SAYS" THIS NURSE AGAIN EDUCATED THAT ALL DAY YESTERDAY WHEN THEY USED HIS FINGERS FOR BS IT WAS LOW BUT WHEN USING EAR IT IS HIGHER. PT DID NOT CARE. STUCK LEFT EAR. WCTM
--- NOTE | 2018-07-06 06:19 | NUR ---
BS WAS TO "HIGH" TO READ ON THE GLUCOMETER AND REFUSES STAT LAB DRAW. 6 UNITS WILL BE ADMINISTERED
--- NOTE | 2018-07-06 07:33 | NUR ---
PT HOLLERED AT ME AND THE NIGHT NURSE WHEN WE TRIED TO DO BEDSIDE. SAID HE WANTED TO BE LEFT ALONE AND TO GET OUT. OBLIGED. CL IN REACH, SRX2.
[2018-07-06] MEDS ORDERED: Vancomycin HCl PO (09:27)
[2018-07-06] MEDS ORDERED: PROTONIX40 MG PO (10:58)
--- NOTE | 2018-07-06 12:56 | NUR ---
I have reviewed this patient and I concur with the Shift Assessment completed by the Licensed Practical Nurse today this shift.
--- NOTE | 2018-07-06 12:57 | NUR ---
PT ESCORTED OUT VIA WHEELCHAIR.
--- NOTE | 2018-07-06 13:27 | NUR ---
PT MOTHER CALLED. INFORMED ME SHE WAS HIS LEGAL GUARDIAN, I WAS UNAWARE OF THIS WHEN DISCHARGING PT SO DID NOT INFORM MOTHER. WHEN I SPOKE TO HER ON THE PHONE I APPOLOGIZED PERFUSELY AND CAUGHT HER UP ON HER SONS CONDITION, TMKIE OF D/C AND ALL EVENTS PRIOR. WHEN THROUGH FULL D/C PAPERWORK WITH MOTHER ON PHONE. ASSUMED MOTHER WOULD CALL ADMINISTRATION BUT SHE UNDERSTANDS THAT THIS WAS NOT INTENTIONAL ON MY PART.
--- NOTE | 2018-07-06 15:36 | MORECARE ---
CASE MANAGEMENT DISCHARGE SUMMARY PATIENT: OLIVER TALAVERA UNIT: [id number] ADM DATE: 06/30/18 AGE: 33 : [birth year] SEX: M ROOM/BED: D.1213 AUTHOR: EDITH,DOC PHYSICIAN: REFERRING PHYSICIAN: LEAH COLLADO MD DATE OF SERVICE: 07/06/18 Discharge Plan Patient Name: OLIVER TALAVERA Facility: [facility]:[place] : 1985 Planned Disposition: Nursing Facility [facility] Cert Anticipated Discharge Date: Discharge Date: 07/06/2018 Expected LOS: Initial Reviewer: [email or web address] Initial Review Date: 07/04/2018 Generated: 07/06/18 4:36 pm Comments DCP- Discharge Planning Updated by [email or web address]: Nina Argueta on 07/06/18 2:[address] Late entry for 11: CM called [facility] and notified that patient had discharge orders. Spoke with Minerva. Minerva informed CM that she would arrange van for transport. CM faxed records as requested. CM informed nurse to call facility and give report to "A Keen nurse" as directed by Minerva. CM called Sarah Harrell with [facility] to notify of discharge and patient will need to resume Monday, , Monday dialysis as previously scheduled. Sarah verbalized understanding and stated everything was set up and ready for patient to resume outpatient dialysis. DCP- Discharge Planning Updated by [email or web address]: Susan Enrique on 07/04/18 1:[address] Called Sarah with pt. [facility] about Pt HD and pt will resume same schedule for HD on Tuesdays, and Sat. Spoke with [facility] about possible DC after HD in the morning. Van will pick pulling machine operator after HD. CM faxed over paper work to Jose Antonio at [facility] at [phone] DCP- Discharge Planning Updated by [email or web address]: Susan Enrique on 07/04/18 12:[address] Patient Name: OLIVER TALAVERA Admission Status: ER Accout number: [id number] Admission Date: 06-30-2018 : 1985 Admission Diagnosis:TYPE 1 DIABETES MELLITUS W DIABETIC CHRONIC KIDNEY DISE Attending: LEAH COLLADO Current LOS: 4 Anticipated DC Date: Planned Disposition: Nursing Facility [facility] Cert Primary Insurance: MEDICAID [place] Discharge Planning Comments: CM spoke with pt. regarding d/c needs . Pt will return to [facility] to ( [facility] Bed) , pt has no DME needs,. Pt will resume HD on T, Th, and Sat thru [place] transport. Will call Saarh with HD to verify. Will cont. to follow until DC Voltage Inspector: Susan Enrique DCPIA - Discharge Planning Initial Assessment Updated by [email or web address]: Susan Enrique on 07/04/18 1:52 pm * Is the patient Alert and Oriented? Yes * How many steps to enter\\exit or inside your home? * PCP Dr. Collado * Pharmacy [facility] * Preadmission Environment [facility] * Facility Name [facility] * ADLs Partial Dependent * Partial ADLs (Assistance needed) Medication Management * Equipment Walker * List name and contact numbers for known caregivers / representatives who currently or will assist patient after discharge: Arpita Rooneyalyssa [phone] or [phone] * Verbal permission to speak to the caregivers and representatives has been obtained from the patient. N/A * Community resources currently utilized None * Additional services required to return to the preadmission environment? No * Can the patient safely return to the preadmission environment? Yes * Has this patient been hospitalized within the prior 30 days at any hospital? Yes Last DP export: 07/04/18 1:31 p Patient Name: OLIVER TALAVERA Page 50863 at 1536 All edits/amendments must be made on the electronic document DICTATION DATE: 07/06/18 1531 BAR WAITER/WAITRESS: RENETTA 07/06/18 1535 RPT#: [id number] DC DATE:07/06/18 STATUS: DIS IN [facility] [address] [place] [address] END OF REPORT
--- NOTE | 2018-07-06 15:45 | MORECARE ---
CASE MANAGEMENT DISCHARGE SUMMARY PATIENT: OLIVER TALAVERA UNIT: [id number] ADM DATE: 06/30/18 AGE: 33 : 83 SEX: M ROOM/BED: D.1213 AUTHOR: EDITH,DOC PHYSICIAN: REFERRING PHYSICIAN: LEAH COLLADO MD DATE OF SERVICE: 07/06/18 Discharge Plan Patient Name: OLIVER TALAVERA Facility: [facility]:[place] : 1985 Planned Disposition: Nursing Facility [facility] Cert Anticipated Discharge Date: Discharge Date: 07/06/2018 Expected LOS: Initial Reviewer: [email or web address] Initial Review Date: 07/04/2018 Generated: 07/06/18 4:45 pm Comments DCP- Discharge Planning Updated by [email or web address]: Nina Argueta on 07/06/18 2:[address] Late entry for 11: CM called [facility] and notified that patient had discharge orders. Spoke with Minerva. Minerva informed CM that she would arrange van for transport. CM faxed records as requested. CM informed nurse to call facility and give report to "A Keen nurse" as directed by Minerva. CM called Sarah Harrell with [facility] to notify of discharge and patient will need to resume Monday, , Monday dialysis as previously scheduled. Sarah verbalized understanding and stated everything was set up and ready for patient to resume outpatient dialysis. DCP- Discharge Planning Updated by [email or web address]: Susan Enrique on 07/04/18 1:[address] Called Sarah with pt. [facility] about Pt HD and pt will resume same schedule for HD on Tuesdays, and Sat. Spoke with [facility] about possible DC after HD in the morning. Van will cherry picker operator after HD. CM faxed over paper work to Jose Antonio at [facility] at [phone] DCP- Discharge Planning Updated by [email or web address]: Susan Enrique on 07/04/18 12:[address] Patient Name: OLIVER TALAVERA Admission Status: ER Accout number: [id number] Admission Date: 06-30-2018 : 1985 Admission Diagnosis:TYPE 1 DIABETES MELLITUS W DIABETIC CHRONIC KIDNEY DISE Attending: LEAH COLLADO Current LOS: 4 Anticipated DC Date: Planned Disposition: Nursing Facility [facility] Cert Primary Insurance: MEDICAID [place] Discharge Planning Comments: CM spoke with pt. regarding d/c needs . Pt will return to [facility] to ( [facility] Bed) , pt has no DME needs,. Pt will resume HD on T, Th, and Sat thru [place] transport. Will call Sarah with HD to verify. Will cont. to follow until DC Parachute Marker: Susan Enrique DCPIA - Discharge Planning Initial Assessment Updated by [email or web address]: Susan Enrique on 07/04/18 1:52 pm * Is the patient Alert and Oriented? Yes * How many steps to enter\\exit or inside your home? * PCP Dr. Collado * [facility]acy [facility] * Preadmission Environment [facility] * Facility Name [facility] * ADLs Partial Dependent * Partial ADLs (Assistance needed) Medication Management * Equipment Walker * List name and contact numbers for known caregivers / representatives who currently or will assist patient after discharge: Arpita Rooneyalyssa [phone] or [phone] * Verbal permission to speak to the caregivers and representatives has been obtained from the patient. N/A * Community resources currently utilized None * Additional services required to return to the preadmission environment? No * Can the patient safely return to the preadmission environment? Yes * Has this patient been hospitalized within the prior 30 days at any hospital? Yes Last DP export: 07/06/18 2:36 p Patient Name: OLIVER TALAVERA Page 88241 at 1545 All edits/amendments must be made on the electronic document DICTATION DATE: 07/06/18 1544 ELECTRICAL ENGINEERING DESIGNER: RENETTA 07/06/18 1544 RPT#: [id number] DC DATE:07/06/18 STATUS: DIS IN [facility] [address] [place] [address] END OF REPORT
== END 2018-07-06 12:58 | DRG 380 ==
LOC: D.ER 00:09 → D.M2 01:46 → D.ICU 01:46 → D.M2 01:46 → D.M3 01:46 → D.EDHOLD 01:46 → D.M2 01:56 → D.ICU 10:48 → D.M3 07-02 18:07
PROVIDERS: Family Medicine; Internal Medicine Gastroenterology; ADMIT Legal Medicine; ATTEND Legal Medicine
PROC: 0DB68ZX Excision of Stomach, Via Natural or Artificial Opening Endoscopic, Diagnostic (ICD-10-PCS; principal; 2018-07-03 13:00)
DX: K22.11 Ulcer of esophagus with bleeding (principal); N18.6 End stage renal disease; I12.0 Hypertensive chronic kidney disease with stage 5 chronic kidney disease or end stage renal disease; A04.72 Enterocolitis due to Clostridium difficile, not specified as recurrent; E10.22 Type 1 diabetes mellitus with diabetic chronic kidney disease; E10.65 Type 1 diabetes mellitus with hyperglycemia; Z79.4 Long term (current) use of insulin; Z99.2 Dependence on renal dialysis; F31.9 Bipolar disorder, unspecified; K44.9 Diaphragmatic hernia without obstruction or gangrene; K29.80 Duodenitis without bleeding; K29.70 Gastritis, unspecified, without bleeding

== ENCOUNTER 2018-07-07 10:36 | Inpatient (IN) | payer MEDICAID ==
[~2018-07-07] VITALS: Ht 172.7 cm; Wt 67.8 kg
[2018-07-07] VITALS (15 sets, daily range): BP systolic 117–195; BP diastolic 69–99; BMI 22.8
[~2018-07-07 10:36] MED LIST changes: +SULFAMETHOXAZOL1 TA3 PO; +ULTRAM50 MG PO; +VOLTAREN100 GM TOPICAL; +Vancomycin HCl PO; +ZOCOR20 MG PO
[2018-07-07 11:12] LABS: BASOPHILS 0.1 % (0-2); HEMATOCRIT 31.8 % (42.0-54.0); HEMOGLOBIN 11.4 g/dL (13.5-17.5); IMMATURE GRANULOCYTES 0.6 % (0-5); LYMPHOCYTES 10.1 % (15-50); MCH 33.4 pg (26.0-34.0); MCHC 35.8 g/dL (31.0-37.0); MCV 93.3 fL (80.0-100.0); MEAN PLATELET VOLUME 12.1 fL (7.4-10.4); MONOCYTES 9.6 % (2-11); NEUTROPHILS 78.6 % (40-80); RBC 3.41 10x6/uL (4.20-6.10); RDW 14.9 % (11.5-14.5); WBC 10.1 10x3/uL (4.8-10.8)
[2018-07-07 11:13] LABS: PLATELET COUNT 183 10x3/uL (130-400)
[2018-07-07 11:18] LABS: KETONE - SERUM SMALL mg/dL (NEGATIVE)
[2018-07-07 11:29] LABS: ALBUMIN 3.2 g/dL (3.4-5.0); ALKALINE PHOSPHATASE 123 U/L (46-116); ALT (SGPT) 39 U/L (10-68); CALC OSMOLALITY 300 mosm/kg (275-300); CALCIUM 8.6 mg/dL (8.5-10.1); CARBON DIOXIDE 18.1 mmol/L (21.0-32.0); CHLORIDE - SERUM 93 mmol/L (98-107); CREATININE - SERUM 9.9 mg/dL (0.6-1.3); MAGNESIUM - SERUM 2.7 mg/dL (1.8-2.4); POTASSIUM - SERUM 5.1 mmol/L (3.5-5.1); PROTEIN - SERUM 7.3 g/dL (6.4-8.2); SODIUM 133 mmol/L (136-145); UREA NITROGEN 74 mg/dL (7-18); eGFR NON AFRICAN AMERICAN 6 mL/min (90-120)
[2018-07-07 11:33] LABS: GLUCOSE 326 mg/dL (74-106)
--- NOTE | 2018-07-07 11:33 | NUR ---
PT HAS A HX OF CARRING THE C-DIFF ANTIGEN, PLACE PT ON ISOLATION PRECAUTIONS.
--- NOTE | 2018-07-07 13:25 | NUR ---
FSBS 170, D5NS STARTED AT 100ML/HR, INSULIN GTT DECREASED TO 5.1 UNITS/HR, WILL RECHECK IN 30MIN
--- NOTE | 2018-07-07 13:25 | NUR ---
FSBS 170, INSULIN GTT RATE ADJUSTED TO 5.1, D5NS STARTED AT 100ML/HR, WILL RECHECK IN 30MIN
--- NOTE | 2018-07-07 13:41 | NUR ---
NOTE CHARTED BY JIA MAYFIELD RN
--- NOTE | 2018-07-07 13:50 | NUR ---
FSBS 144, NO CHANGES TO GTT OR FLUIDS, WILL RECHECK IN 30MIN
--- NOTE | 2018-07-07 14:41 | MORECARE ---
CASE MANAGEMENT DISCHARGE SUMMARY PATIENT: OLIVER TALAVERA UNIT: [id number] ADM DATE: 07/07/18 AGE: 33 : 84 SEX: M ROOM/BED: D.2308 AUTHOR: CLAU SHARMA PHYSICIAN: REFERRING PHYSICIAN: KEVIN TREVIZO MD DATE OF SERVICE: 07/07/18 Discharge Plan Patient Name: OLIVER TALAVERA Facility: [facility]:[place] : 1985 Planned Disposition: SNF w Planned Readmission Anticipated Discharge Date: 07/10/18 Discharge Date: Expected LOS: 3 Initial Reviewer: [email or web address] Initial Review Date: 07/07/2018 Generated: 07/07/18 3:41 pm Patient Name: OLIVER TALAVERA Page 24207 at 1441 All edits/amendments must be made on the electronic document DICTATION DATE: 07/07/18 1441 PEER FINANCIAL COUNSELOR: RENETTA 07/07/18 1441 RPT#: [id number] DC DATE: STATUS: ADM IN [facility] [address] [place] [address] END OF REPORT
--- NOTE | 2018-07-07 14:48 | MORECARE ---
CASE MANAGEMENT DISCHARGE SUMMARY PATIENT: OLIVER TALAVERA UNIT: [id number] ADM DATE: 07/07/18 AGE: 33 : 83 SEX: M ROOM/BED: D.2308 AUTHOR: CLAU SHARMA PHYSICIAN: REFERRING PHYSICIAN: KEVIN TREVIZO MD DATE OF SERVICE: 07/07/18 Discharge Plan Patient Name: OLIVER TALAVERA Facility: [facility]:[place] : 1985 Planned Disposition: SNF w Planned Readmission Anticipated Discharge Date: 07/10/18 Discharge Date: Expected LOS: 3 Initial Reviewer: [email or web address] Initial Review Date: 07/07/2018 Generated: 07/07/18 3:48 pm DCPIA - Discharge Planning Initial Assessment Updated by [email or web address]: Janeth Chau on 07/07/18 2:43 pm * Is the patient Alert and Oriented? No * How many steps to enter\exit or inside your home? None * PCP Dr. Mello * Pharmacy [facility] * Preadmission Environment [facility] * Facility Name [facility] * ADLs Partial Dependent * Partial ADLs (Assistance needed) Medication Management * List name and contact numbers for known caregivers / representatives who currently or will assist patient after discharge: Genny or Isra Hinkle - Legal Guardians- [phone] or [phone] Legal Guardian paperwork on patient's chart. Sent from the senior care. * Verbal permission to speak to the caregivers and representatives has been obtained from the patient. Yes * Community resources currently utilized None * Additional services required to return to the preadmission environment? No * Can the patient safely return to the preadmission environment? Yes * Has this patient been hospitalized within the prior 30 days at any hospital? No Last DP export: 07/07/18 1:41 p Patient Name: OLIVER TALAVERA Page 16071 at 1448 All edits/amendments must be made on the electronic document DICTATION DATE: 07/07/18 1448 APPLIED BIOLOGY PROFESSOR: RENETTA 07/07/18 1448 RPT#: [id number] DC DATE: STATUS: ADM IN [place] [address] [place] [address] END OF REPORT
--- NOTE | 2018-07-07 14:55 | NUR ---
FSBS 104, INSULIN GTT DECREASED TO 3.1 UNITS/HR
--- NOTE | 2018-07-07 15:15 | NUR ---
REC'D INTO ROOM 2308 AND HOOKED UP TO CM.
--- NOTE | 2018-07-07 15:20 | NUR ---
ALERT AND AGITATED. WANTS TO REFUSE CARE, ENCOURAGED HIM TO LET US TAKE CARE OF HIM.
--- NOTE | 2018-07-07 15:45 | NUR ---
FSBS IS 145. INSULIN GTT REAMISN AT 3.2 UNITS PER HOUR.
--- NOTE | 2018-07-07 15:46 | NUR ---
LIANE SMITH WITH GI AT BEDSIDE. DISCUSSED HNT WITH HIM. SAID HE WAS STARTING HOME MEDS BACK.
--- NOTE | 2018-07-07 16:00 | NUR ---
REMAINS ALERT AND AGITATED. WANTS TO REFUSE CARE, LAB DRAWS. TALKED HIM IN TO LETTING LAB DRAW BLOOD.
[2018-07-07 16:53] LABS: MAGNESIUM - SERUM 2.2 mg/dL (1.8-2.4); UREA NITROGEN 56 mg/dL (7-18)
--- NOTE | 2018-07-07 17:03 | NUR ---
I TALKED WITH DR. JONAS ABOUT THE CONSULT. UPDATED HIM OF LAB VALUES.
[2018-07-07 17:04] LABS: CREATININE - SERUM 0.6 mg/dL (0.6-1.3)
[2018-07-07 17:07] LABS: GLUCOSE 59 mg/dL (74-106)
--- NOTE | 2018-07-07 17:12 | NUR ---
GLUCOSE 59 FROM BMP.FSBS=63 INSULIN GTT TURNED OFF.
--- NOTE | 2018-07-07 17:27 | NUR ---
I SPOKE WITH DR. HALE ABOUT CONSULT.
--- NOTE | 2018-07-07 17:42 | NUR ---
HE IS ALERT BUT REMAINS AGITATED.
--- NOTE | 2018-07-07 18:02 | NUR ---
FSBS 70. INSULIN GTT REMAINS OFF.
--- NOTE | 2018-07-07 19:00 | NUR ---
REPORT RECIEVED, SHIFT ASSESSMENT COMPLETE, PLEASE SEE FLOW SHEETS FOR DETAILS. VSS, BED LOW AND LOCKED, CALL LIGHT IN REACH. WILL CONTINUE PLAN OF CARE.
--- NOTE | 2018-07-07 19:45 | NUR ---
DR JONAS ON UNIT. ORDERS RECIEVED. FSBS Q2H X4H, THEN Q4H AFTER IF WITHIN RANGE. OKAY TO GIVE SOME APPLE JUICE. DC D5NS INFUSION. PATIENT REFUSED LABS, DR SON WITH THIS, STATED WILL DRAW LABS IN AM WITH HD.
--- NOTE | 2018-07-07 22:55 | NUR ---
Reassessment complete, please see flow sheets for details. No acute changes to note. Denies pain/needs. VSS. Bed low and locked, call light in reach. Will continue plan of care.
[2018-07-08] VITALS (24 sets, daily range): BP systolic 103–201; BP diastolic 67–115
--- NOTE | 2018-07-08 01:00 | NUR ---
RESTING. VSS. BED LOW AND LOCKED, CALL LIGHT IN REACH. WILL CONTINUE PLAN OF CARE.
--- NOTE | 2018-07-08 02:47 | NUR ---
REASSESSMENT COMPLETE, PLEASE SEE FLOW SHEETS FOR DETAILS. DENIES PAIN/NEEDS. VSS. BED LOW AND LOCKED, CALL LIGHT IN REACH. WILL CONTINUE PLAN OF CARE.
--- NOTE | 2018-07-08 05:00 | NUR ---
LAYING IN BED. PROVIDED FOR NEEDS. VSS. BED LOW AND LOCKED, CALL LIGHT IN REACH. WILL CONTINUE PLAN OF CARE.
--- NOTE | 2018-07-08 07:00 | NUR ---
REC'D CARE OF PT. A&O X3. PLEASANT THIS MORNING. BREAKFAST TRAY SERVED.
--- NOTE | 2018-07-08 08:00 | NUR ---
REQUESTED EXTRA EGGS FROM KITCHEN PER PT. REQUEST.
--- NOTE | 2018-07-08 10:02 | NUR ---
SELF AMBULATORY. REPOSITIIONS SELF IN BED. DENIES NEEDS.CLWR. CPOC.
--- NOTE | 2018-07-08 10:03 | NUR ---
INSULIN REMAINS OFF.
--- NOTE | 2018-07-08 10:04 | NUR ---
[employer] NOTIFIED THRU ONE TIME ORDER ON COMPUTER FOR PATIENTS REQUEST FOR EXTRA FOOD.
[2018-07-08 10:14] LABS: APPEARANCE HAZY (CLEAR); BILIRUBIN NEGATIVE (NEGATIVE); COLOR STRAW (YELLOW); GLUCOSE 1000 mg/dL (NEGATIVE); KETONE SMALL mg/dL (NEGATIVE); NITRITE NEGATIVE (NEGATIVE); PROTEIN 2+ mg/dL (NEGATIVE); UROBILINOGEN NORMAL (NORMAL)
[2018-07-08 10:15] LABS: AMORPHOUS SEDIMENT <1+ /lpf (NONE SEEN); BACTERIA MODERATE /hpf (NONE SEEN); EPITHELIAL CELLS 0-5 /hpf (0-5); MUCUS <1+ /lpf (NONE SEEN); RED CELLS - URINE 0-5 /hpf (0-5)
--- NOTE | 2018-07-08 10:44 | NUR ---
REASSESSMENT COMPLETED PER FLOW SHEET. NO ACUTE CHANGES.
--- NOTE | 2018-07-08 11:57 | NUR ---
I CALLED MYLENE Lee APN WITH DR. COLLADO ABOUT THE OUT OF RANGE FSBS AND HE SAID TO GIVE THE 12 UNITS AND RECHECK BS IN 20".
--- NOTE | 2018-07-08 12:08 | NUR ---
PER MYLENE SMITH, IF BS REMAINS, HIGH, "OUT OF RANGE" PER GLUCOMETER, GIVE 12 UNITS HUMALOG AND CHECK AGAIN IN 20" UNTIL IN RANGE.
--- NOTE | 2018-07-08 12:43 | NUR ---
FSBS 535. 12 UNITS HUMALOG GIVEN AND WILL CHECK AGAIN IN 20" PER ORDERS.
--- NOTE | 2018-07-08 13:19 | NUR ---
FSBS 387. 10 UNITS INSULIN GIVEN PER SS PER MYLENE BILLET HEADER ORDERS.
[2018-07-08 13:38] LABS: ANION GAP 18.8 mmol/L (8-16); CALCIUM 7.9 mg/dL (8.5-10.1); CARBON DIOXIDE 21.3 mmol/L (21.0-32.0); MAGNESIUM - SERUM 2.1 mg/dL (1.8-2.4)
[2018-07-08 13:40] LABS: CREATININE - SERUM 8.6 mg/dL (0.6-1.3); POTASSIUM - SERUM 3.1 mmol/L (3.5-5.1)
--- NOTE | 2018-07-08 15:44 | NUR ---
00B TO BEDSIDE COMMODE. INDEPENDENTLY. HAD 200 CC URINE. MEDIUM SEMIFORMED STOOL.
--- NOTE | 2018-07-08 15:50 | NUR ---
FROM BEDSIDE COMMODE TO CHAIR.
--- NOTE | 2018-07-08 17:14 | NUR ---
REFUSED TO HAVE LAB S DRAWN.
--- NOTE | 2018-07-08 17:45 | NUR ---
REMAINS IN CHAIR. DAIN NEEDS. INSULIN GTT REMAINS OFF.
--- NOTE | 2018-07-08 18:18 | NUR ---
PRN HNT MEDS GIVEN.
--- NOTE | 2018-07-08 19:11 | NUR ---
REPORT RECEIVED, CARE ASSUMED. PT IS RESTING IN BED WATCHING TV AT THIS TIME. INITIAL ASSESSMENT COMPLETED, SEE FLOWSHEET FOR DETAILS. PT REQUESTED A DIET COKE, WAS PROVIDED. NO SIGNS OF ACUTE DISTRESS. WILL CONTINUE TO MONITOR.
--- NOTE | 2018-07-08 21:11 | NUR ---
PT CONTINUES TO REST IN BED. NO NEEDS VOICED AT THIS TIME. NO SIGNS OF ACUTE DISTRESS. WILL CONTINUE TO MONITOR.
--- NOTE | 2018-07-08 23:12 | NUR ---
REASSESSMENT COMPLETED, SEE FLOWSHEET FOR DETAILS. PT IS RESTING IN BED WITH EYES CLOSED AT THIS TIME. NO SIGNS OF ACUTE DISTRESS. NO NEEDS VOICED. WILL CONTINUE TO MONITOR.
[2018-07-09] VITALS (10 sets, daily range): BP systolic 118–199; BP diastolic 63–133; Ht 172.7 cm; Wt 67.8 kg
--- NOTE | 2018-07-09 01:12 | NUR ---
PT IS RESTING IN BED WITH EYES CLOSED AT THIS TIME. NO SIGNS OF ACUTE DISTRESS. WILL CONTINUE TO MONITOR.
--- NOTE | 2018-07-09 03:04 | NUR ---
PT REFUSED MORNING LABS WHEN THE HYSTER MACHINE OPERATOR ENTERED ROOM.
--- NOTE | 2018-07-09 03:13 | NUR ---
REASSESSMENT COMPLETED, SEE FLOWSHEET. PT IS RESTING IN BED WITH EYES CLOSED AT THIS TIME. NO NEEDS VOICED. NO SIGNS OF ACUTE DISTRESS. WILL CONTINUE TO MONITOR.
--- NOTE | 2018-07-09 05:13 | NUR ---
PT IS RESTING IN BED AT THIS TIME. COMPLAINS OF EYE PAIN. INFORMED PT THAT I WOULD MAKE SURE DR IS AWARE OF IT SO IT CAN BE CHECKED OUT. NO SIGNS OF ACUTE DISTRESS. NO FURTHER NEEDS NOTED. WILL CONTINUE TO MONITOR.
--- NOTE | 2018-07-09 07:30 | NUR ---
REPORT RECEIVED. PT IS ALERT AND ORIENTED. HEAD TO TOE ASSESSMENT PERFORMED. ON CONTACT PRECAUTIONS FOR POSITIVE ANTIGEN/NEGATIVE TOXIN CDIFF. PT HAS SALINE LOCK IN RIGHT FOREARM. BREAKFAST GIVEN TO PT. VSS. WILL CONTINUE TO MONITOR.
--- NOTE | 2018-07-09 09:27 | NUR ---
REPORT CALLED TO MALAIKA ORO, ON MED 2. PT GOING TO ROOM 2111.
[2018-07-09 09:58] LABS: BASOPHILS 0.6 % (0-2); HEMATOCRIT 30.7 % (42.0-54.0); HEMOGLOBIN 10.5 g/dL (13.5-17.5); IMMATURE GRANULOCYTES 1.1 % (0-5); LYMPHOCYTES 28.6 % (15-50); MCH 32.9 pg (26.0-34.0); MCHC 34.2 g/dL (31.0-37.0); MEAN PLATELET VOLUME 10.6 fL (7.4-10.4); MONOCYTES 13.9 % (2-11); NEUTROPHILS 52.8 % (40-80); RBC 3.19 10x6/uL (4.20-6.10); RDW 15.3 % (11.5-14.5)
--- NOTE | 2018-07-09 10:12 | NUR ---
RECEIVED PT TO ROOM 2111 VIA WHEELCHAIR, PT A/O X4, RESP EVEN AND NONLABORED ON RA. VITAL SIGNS FOLLOW TEMP 97.4, BP OF 144/94, HR 74, O2 100%RA. RT UPPER IV SL. ON CONTACT ISOLATION FOR POSITIVE CDIFF ANTIGEN. PT DENIES ANY NEEDS AT THIS TIME. CALL LIGHT IN REACH, NAD NOTED,WILL PLAN OF CARE.
[2018-07-09 10:13] LABS: MCV 96.2 fL (80.0-100.0); PLATELET COUNT 245 10x3/uL (130-400); WBC 6.3 10x3/uL (4.8-10.8)
--- NOTE | 2018-07-09 10:15 | NUR ---
LEFT VOICEMAIL ON PT'S MOTHER'S VOICEMAIL TO NOTIFY HER OF PT BEING TRANSFERRED TO THE FLOOR.
--- NOTE | 2018-07-09 10:53 | NUR ---
WENT TO PLACED HEART MONITOR ON PT, PT REFUSED TO HAVE HEART MONITOR. STATED " I AM NOT WEARING THAT, I JUST GOT OFF OF IT. SO I AM NOT DOING IT".
--- NOTE | 2018-07-09 12:25 | NUR ---
GAVE TRAMADOL FOR PAIN LEVEL OF 7/10. PT DENIES ANY OTHER NEEDS AT THIS TIME. WANTS ANOTHER LUNCH TRAY. INFORMED HIM THAT I COULD NOT GET HIM ANOTHER TRAY BECAUSE HIS BLOOD SUGAR WAS HIGH BUT I COULD ORDER 2 CHICKEN STRIPS AND SQUASH. PT AGREED.
--- NOTE | 2018-07-09 17:02 | NUR ---
BLOOD SUGAR OF 340, 8UNIT GIVEN PER S/S. PT RESTING COMFORTABLY IN BED, DENIES ANY NEEDS AT THIS TIME. CALL LIGHT IN REACH.
--- NOTE | 2018-07-09 19:45 | NUR ---
PT SITTING ON SIDE OF BED. CALL LIGHT IN REACH. PT DENIES NEEDS AT THIS TIME. BED IN LOW SIDE RAILS X2. PT GETS UP TO USE BATHROOM. LUNGS CLEAR. BOWEL ACTIVE X4. A/O X4. R UPPER ARM IV INTACT. WILL CONTINUE TO MONITOR.
[2018-07-10] VITALS: BP 114/70
--- NOTE | 2018-07-10 03:47 | NUR ---
PT RESTING QUIETLY. CALL LIGHT IN REACH. NO SIGNS OF DISTRESS OR PAIN. WCTM
--- NOTE | 2018-07-10 04:15 | NUR ---
PT REFUSED BS TO BE TAKEN AT 0400, PT REQUEST TO WAIT TILL 0600.
--- NOTE | 2018-07-10 04:25 | NUR ---
I have reviewed this patient and I concur with the Shift Assessment completed by the Licensed Practical Nurse today this shift.
[2018-07-10 07:47] VITALS: BP 166/107
--- NOTE | 2018-07-10 18:39 | NUR ---
I have reviewed this patient and I concur with the Shift Assessment completed by the Licensed Practical Nurse today this shift.
[2018-07-10 19:25] VITALS: BP 150/77
[2018-07-10 20:00] VITALS: BP 151/93
[2018-07-11] VITALS: BP 120/68
--- NOTE | 2018-07-11 00:26 | NUR ---
PT STATES HE HAS A BOWEL MOVEMENT, STOOL IS FIRM, GREEN, MIDIUM AMOUNT.
--- NOTE | 2018-07-11 06:08 | NUR ---
PT REFUSED RECHECKED FSBS AND HE REFUSED HIS PROTONIX.
[2018-07-11 06:48] LABS: BASOPHILS 0.4 % (0-2); EOSINOPHILS 2.5 % (0-7); HEMATOCRIT 32.2 % (42.0-54.0); HEMOGLOBIN 10.6 g/dL (13.5-17.5); IMMATURE GRANULOCYTES 0.4 % (0-5); LYMPHOCYTES 25.3 % (15-50); MCH 32.6 pg (26.0-34.0); MCHC 32.9 g/dL (31.0-37.0); MEAN PLATELET VOLUME 10.5 fL (7.4-10.4); NEUTROPHILS 59.4 % (40-80); PLATELET COUNT 280 10x3/uL (130-400); RBC 3.25 10x6/uL (4.20-6.10); RDW 14.9 % (11.5-14.5); WBC 5.7 10x3/uL (4.8-10.8)
[2018-07-11 06:56] LABS: MCV 99.1 fL (80.0-100.0)
[2018-07-11 07:07] LABS: ANION GAP 17.5 mmol/L (8-16); CALCIUM 8.3 mg/dL (8.5-10.1); CARBON DIOXIDE 24.2 mmol/L (21.0-32.0); POTASSIUM - SERUM 3.7 mmol/L (3.5-5.1)
--- NOTE | 2018-07-11 07:45 | NUR ---
RECEIVED A/A/OX4. DENIES ANY PAIN OR DISCOMFORT AND NO REQUESTS VOICED. ASSESSMENT COMPLETED. WILL CONTINUE POC.
[2018-07-11 09:21] VITALS: BP 165/96
--- NOTE | 2018-07-11 11:30 | NUR ---
BLOOD SUGAR READING OF 462. CALLED JUANJOSE BUSTAMANTE AND ORDER RECEIVED TO ONLY GIVE THE 12 UNITS OF HUMALOG PER SLIDING SCALE. PT REFUSED TO LET NURSES ADMINISTER SHOTS IN HIS ABD WITH THE EXCUSE THAT HE DOESNT TRUST THE NURSES AND IT IS TOO PAINFUL. INSISTS THAT SHOTS BE GIVEN IN BACK OF RIGHT ARM AND DONE.
[2018-07-11 12:07] VITALS: BP 152/80
--- NOTE | 2018-07-11 12:25 | NUR ---
I have reviewed this patient and I concur with the Shift Assessment completed by the Licensed Practical Nurse today this shift.
--- NOTE | 2018-07-11 13:45 | NUR ---
Nutrition follow-up: Diet: Renal ADA PO intake 100% of meals and asking for more food. Glucose running high +BM Wt: 149# Will continue to provide food choices and honor food preferences within diet restrictions. RDN following.
[2018-07-11 15:57] VITALS: BP 145/83
[2018-07-11 20:00] VITALS: BP 156/90
--- NOTE | 2018-07-11 20:15 | NUR ---
RESUMING PT CARE. PT IS ALERT LAYING IN BED. NO C/O VOICED. NO S/S OF DISTRESS NOTED. BED IN LOW POSITION WITH CALL LIGHT IN REACH. WILL CONTINUE TO MONITOR PT AND FOLLOW PLAN OF CARE.
[2018-07-12 04:00] VITALS: BP 152/93
--- NOTE | 2018-07-12 04:30 | NUR ---
PT REFUSED 0400 BLOOD SUGAR.
--- NOTE | 2018-07-12 07:23 | NUR ---
AM ROUNDING DONE WITH PATIENT IN ENTERIC ISOLATION. WHILE STANDING AT DOOR, PATIENT STATES THAT HE IS SUPPOSE TO BE OUT OF ISOLATION. RES. LEFT ARM WITH [facility]. FOR DIALYSIS TODAY. DR JONAS IS HERE AND WANTS PATIENT TO BE DISCHARGED. WILL CHECK WITH MYLENE FOR DISCHARGFE.
--- NOTE | 2018-07-12 07:29 | NUR ---
PAGE INTO [facility].
[2018-07-12 08:15] VITALS: BP 176/112
--- NOTE | 2018-07-12 08:23 | NUR ---
MYLENE IN TO SEE PATIENT.
[2018-07-12] MEDS ORDERED: Vancomycin HCl PO (08:26)
[2018-07-12] MEDS ORDERED: Lantus Solostar PEN SC (08:29)
--- NOTE | 2018-07-12 08:42 | NUR ---
MOTHER IS HERE AND SHE IS NOTIFIED THAT HE IS BEING DISCHARGED. PATIENT STATES THAT HIS MOM HAS TO TAKE A TEST SO SHE IS UNABLE TO PICK HIM UP FOR DIALYSIS, [facility] HAS TO BE CALLED AND STACEY WITH CM IS TOLD THIS.
--- NOTE | 2018-07-12 08:48 | NUR ---
I CALLED BAKARI YOUNG TO VERIFY THE CHAIR TIME, IT IS 11:45.
[2018-07-12] MEDS ORDERED: REGLAN5 MG PO (08:58)
--- NOTE | 2018-07-12 09:05 | MORECARE ---
CASE MANAGEMENT DISCHARGE SUMMARY PATIENT: OLIVER TALAVERA UNIT: [id number] ADM DATE: 07/07/18 AGE: 33 : 83 SEX: M ROOM/BED: D.2112 AUTHOR: EDITH,DOC PHYSICIAN: REFERRING PHYSICIAN: KEVIN TREVIZO MD DATE OF SERVICE: 07/12/18 Discharge Plan Patient Name: OLIVER TALAVERA Facility: [facility]:[place] : 1985 Planned Disposition: SNF w Planned Readmission Anticipated Discharge Date: 07/10/18 Discharge Date: Expected LOS: 3 Initial Reviewer: [email or web address] Initial Review Date: 07/07/2018 Generated: 07/12/18 10:05 am Comments DCP- Discharge Planning Updated by [email or web address]: Brian Lux on 07/12/18 7:[address] Patient Name: OLIVER TALAVERA Encounter No: [id number] : 1985 Primary Insurance: MEDICAID [place] Anticipated DC Date: 07-10-2018 Planned Disposition: SNF w Planned Readmission External Planned Provider: [facility], [facility] TERM C[facility] MEDICAID BED DCP follow-up note: CM RECEIVED DISCHARGE ORDER, SPOKE TO PT'S GUARDIAN, GENNY MANUEL AT [employer] WHO WOULD LIKE TO MAKE SURE THAT PT DOES NOT GET NARCOTICS OF ANY KIND DURING HIS FUTURE HOSPITAL STAYS. 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 SHE IS IN AGREEMENT WITH DISCHARGE TODAY BACK TO THE [facility], ASKED THAT THE CUSTODIAL PLUG SHAPER HAND FOR TRANSPORT TO [facility] AT 1145 TODAY AND BE SURE TO BRING PT'S SNACK. BLAINE CALLED OSVALDO OF THE [facility], , NOTIFIED OF ABOVE. SHE IS WORKING ON TRANSPORTATION ARRANGEMENTS. CM FAXED DISCHARGE INFORMATION TO THE [facility] AT [phone]. NURSE REPORT TO BE CALLED TO THE [facility] AT [phone]. THE [facility] TO PLUG SHAPER HAND AND TRANSPORT TO [facility] FOR HIS OUTPATIENT APPOINTMENT TODAY. TOM Martinez DCP- Discharge Planning Updated by [email or web address]: Janeth Chau on 07/07/18 1:[address] Patient Name: OLIVER TALAVERA Admission Status: ER Accout number: [id number] Admission Date: 07-07-2018 : 1985 Admission Diagnosis: Attending: KASH Current LOS: 1 Anticipated DC Date: 07-10-2018 Planned Disposition: SNF w Planned Readmission Primary Insurance: MEDICAID [place] Discharge Planning Comments: CM met with patient to complete initial dc planning assessment. Patient alone in room with legal guardians not present. CM called Genny Rooneyadrianalyssa, Legal Guardian, @ [phone], educated her on the CM role and consent given to complete assessment. Patient is a resident at the [facility]. He will return to the facility at time of discharge. YARON signed by verbal consent for patient to return to the [facility]. Signed form placed in chart and signed form left in patient's room for Genny. Genny agrees that returning to the [facility] is a safe dc plan. She stated they would be to the hospital shortly. CM will continue to follow and will assist as needed with dc plans/needs. Bath Steward: Janeth Chau DCPIA - Discharge Planning Initial Assessment Updated by [email or web address]: Janeth Chau on 07/07/18 2:43 pm * Is the patient Alert and Oriented? No * How many steps to enter\exit or inside your home? None * PCP Dr. Mello * Pharmacy [facility] * Preadmission Environment Fdc Facility * Facility Name [facility] * ADLs Partial Dependent * Partial ADLs (Assistance needed) Medication Management * List name and contact numbers for known caregivers / representatives who currently or will assist patient after discharge: Genny or Isra Hinkle - Legal Guardians- [phone] or [phone] Legal Guardian paperwork on patient's chart. Sent from the half-way. * Verbal permission to speak to the caregivers and representatives has been obtained from the patient. Yes * Community resources currently utilized None * Additional services required to return to the preadmission environment? No * Can the patient safely return to the preadmission environment? Yes * Has this patient been hospitalized within the prior 30 days at any hospital? No External Providers [facility] Next Contact Date: 07/12/2018 Service Request Date: Service Type: Resolution: Reviewer: Comments: Last DP export: 07/07/18 1:48 p Patient Name: OLIVER TALAVERA Page 39255 at 0905 All edits/amendments must be made on the electronic document DICTATION DATE: 07/12/18903 COLLECTION SYSTEMS WORKER: RENETTA 07/12/18903 RPT#: [id number] DC DATE: STATUS: ADM IN [facility] [address] [place] [address] END OF REPORT
--- NOTE | 2018-07-12 09:35 | MORECARE ---
CASE MANAGEMENT DISCHARGE SUMMARY PATIENT: OLIVER TALAVERA UNIT: [id number] ADM DATE: 07/07/18 AGE: 33 : 83 SEX: M ROOM/BED: D.2112 AUTHOR: EDITH,DOC PHYSICIAN: REFERRING PHYSICIAN: KEVIN TREVIZO MD DATE OF SERVICE: 07/12/18 Discharge Plan Patient Name: OLIVER TALAVERA Facility: [facility]:[place] : 1985 Planned Disposition: SNF w Planned Readmission Anticipated Discharge Date: 07/10/18 Discharge Date: Expected LOS: 3 Initial Reviewer: [email or web address] Initial Review Date: 07/07/2018 Generated: 07/12/18 10:35 am Comments DCP- Discharge Planning Updated by [email or web address]: Brian Lux on 07/12/18 7:[address] Patient Name: OLIVER TALAVERA Encounter No: [id number] : 1985 Primary Insurance: MEDICAID [place] Anticipated DC Date: 07-10-2018 Planned Disposition: SNF w Planned Readmission External Planned Provider: [facility], LONG TERM CARE MEDICAID BED DCP follow-up note: CM RECEIVED DISCHARGE ORDER, SPOKE TO PT'S GUARDIAN, GENNY MANUEL AT [employer] WHO WOULD LIKE TO MAKE SURE THAT PT DOES NOT GET NARCOTICS OF ANY KIND DURING HIS FUTURE HOSPITAL STAYS. 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 SHE IS IN AGREEMENT WITH DISCHARGE TODAY BACK TO THE [facility], ASKED THAT THE CUSTODIAL ESCORT PATIENTS FOR TRANSPORT TO [facility] AT 1145 TODAY AND BE SURE TO BRING PT'S SNACK. BLAINE CALLED OSVALDO OF THE [facility], , NOTIFIED OF ABOVE. SHE IS WORKING ON TRANSPORTATION ARRANGEMENTS. CM FAXED DISCHARGE INFORMATION TO THE [facility] AT [phone]. NURSE REPORT TO BE CALLED TO THE [facility] AT [phone]. THE [facility] TO ESCORT PATIENTS AND TRANSPORT TO [facility] FOR HIS OUTPATIENT APPOINTMENT TODAY. TOM Martinez DCP- Discharge Planning Updated by [email or web address]: Janeth Chau on 07/07/18 1:[address] Patient Name: OLIVER TALAVERA Admission Status: ER Accout number: [id number] Admission Date: 07-07-2018 : 1985 Admission Diagnosis: Attending: KASH Current LOS: 1 Anticipated DC Date: 07-10-2018 Planned Disposition: SNF w Planned Readmission Primary Insurance: MEDICAID [place] Discharge Planning Comments: CM met with patient to complete initial dc planning assessment. Patient alone in room with legal guardians not present. CM called Genny Rooneydarnell, Legal Guardian, @ [phone], educated her on the CM role and consent given to complete assessment. Patient is a resident at the [facility]. He will return to the facility at time of discharge. YARON signed by verbal consent for patient to return to the [facility]. Signed form placed in chart and signed form left in patient's room for Genny. Genny agrees that returning to the [facility] is a safe dc plan. She stated they would be to the hospital shortly. CM will continue to follow and will assist as needed with dc plans/needs. Site Manager: Janeth Chau DCPIA - Discharge Planning Initial Assessment Updated by [email or web address]: Janeth Chau on 07/07/18 2:43 pm * Is the patient Alert and Oriented? No * How many steps to enter\exit or inside your home? None * PCP Dr. Mello * Pharmacy [facility] * Preadmission Environment [facility] Facility * Facility Name [facility] * ADLs Partial Dependent * Partial ADLs (Assistance needed) Medication Management * List name and contact numbers for known caregivers / representatives who currently or will assist patient after discharge: Genny or Irsa Hinkle - Legal Guardians- [phone] or [phone] Legal Guardian paperwork on patient's chart. Sent from the custodial. * Verbal permission to speak to the caregivers and representatives has been obtained from the patient. Yes * Community resources currently utilized None * Additional services required to return to the preadmission environment? No * Can the patient safely return to the preadmission environment? Yes * Has this patient been hospitalized within the prior 30 days at any hospital? No Last DP export: 07/12/18 8:05 am Patient Name: OLIVER TALAVERA Page [phone] at 0935 All edits/amendments must be made on the electronic document DICTATION DATE: 07/12/18934 PIANO ASSEMBLER: DM 07/12/18934 RPT#: [id number] DC DATE: STATUS: ADM IN [facility] [address] [place] [address] END OF REPORT
--- NOTE | 2018-07-12 09:45 | NUR ---
VERBAL AND WRITTEN DISCHARGE INSTRUCTIONS GIVEN TO PATIENT. I CALLED DORIS GUAMAN AT [facility] ([facility]) TO LET HER KNOW THAT HIS CHAIR TIME IS 1145. I GAVE HER REPORT ON HIM. THE ARE SUPPOSE TO PICK HIM UP AND TAKE HIM TO DIALYSIS.
== END 2018-07-12 11:51 | DRG 637 ==
LOC: D.ER 10:36 → D.EDHOLD 12:53 → D.M2 12:53 → D.ICU 12:53 → D.M2 07-09 09:45
PROVIDERS: Family Medicine; ADMIT Emergency Medicine; ATTEND Emergency Medicine
PROC: 5A1D70Z Performance of Urinary Filtration, Intermittent, Less than 6 Hours Per Day (ICD-10-PCS; principal; 2018-07-08)
DX: E10.10 Type 1 diabetes mellitus with ketoacidosis without coma (principal); N18.6 End stage renal disease; I12.0 Hypertensive chronic kidney disease with stage 5 chronic kidney disease or end stage renal disease; A04.72 Enterocolitis due to Clostridium difficile, not specified as recurrent; Z99.2 Dependence on renal dialysis; E10.40 Type 1 diabetes mellitus with diabetic neuropathy, unspecified; E10.22 Type 1 diabetes mellitus with diabetic chronic kidney disease; K29.80 Duodenitis without bleeding; D64.9 Anemia, unspecified; F31.9 Bipolar disorder, unspecified; E10.43 Type 1 diabetes mellitus with diabetic autonomic (poly)neuropathy; K31.84 Gastroparesis